=== PATIENT | female | born 1955 | race Caucasian/White ===

== ENCOUNTER 2017-12-10 00:50 | Outpatient (CLI) | payer BC, SELFPAY ==
--- NOTE | 2017-12-10 08:20 | DI.REPORT_ITS ---
SYMPTOMS/DIAGNOSIS: SCREENING, Z12.31 MAMMOGRAMS: Mammograms were interpreted according to the usual protocol including computer analysis with CAD system, tomosynthesis and C view imaging. The breast tissue is of moderate radiodensity. There is no dominant mass. There are no suspicious calcifications and there has been no significant interval change when compared with prior images. SUMMARY: No evidence of malignancy, category 1. Yearly screening mammography is recommended. Breast density category B. [facility] ASSESSMENT OF FINDINGS: Negative. Category 1. Patient will receive a letter notifying them of these results. BI-RADS category B. There are scattered areas of fibroglandular density.
== END 2017-12-10 00:51 ==
PROVIDERS: PCP Nurse Practitioner Family; Visit Provider Obstetrics & Gynecology
DX: Z12.31 Encounter for screening mammogram for malignant neoplasm of breast (principal)
CPT/HCPCS: 77063; 77067

== ENCOUNTER 2018-11-15 08:50 | Outpatient (REF) | payer BC, SELFPAY ==
[2018-11-15 18:58] LABS: HCT 42.2 % (36.0-46.0); HGB 13.7 g/dL (12.0-15.5); Mean Corp. HGB Concentration 32.5 g/dL (32.0-36.0); Mean Corpuscular Hemoglobin 28.2 pg (27.0-33.0); Mean Corpuscular Volume 86.8 fL (80-95); Mean Platelet Volume 9.5 fL (8.0-11.0); Platelet Count 260 x1000/uL (130-400); RBC 4.86 m/cumm (4.00-5.20); RBC Distribution Width 13.8 % (11.7-14.6); White Blood Cell Count 5.45 k/cumm (4.4-10.8)
[2018-11-15 19:13] LABS: ALT 30 U/L (12-78); AST 31 U/L (15-37); Albumin 3.7 g/dL (3.4-5.0); Alkaline Phosphatase 89 U/L (46-116); Anion Gap 10.2 mmol/L (3-11); BUN 13 mg/dL (7-18); Bilirubin, Total 0.3 mg/dL (0.2-1.0); CO2 24.8 mmol/L (21.0-32.0); CREATININE 0.83 mg/dL (0.55-1.02); Calcium 8.6 mg/dL (8.5-10.1); Calculated LDL 122 mg/dL; Chloride 106 mmol/L (98-107); Cholesterol 171 mg/dL (50-200); Glucose 97 mg/dL (70-100); HDL Cholesterol 31 mg/dL (40-60); Potassium 4.3 mmol/L (3.5-5.1); Sodium 141 mmol/L (136-145); TSH (W/Ref FT4) 2.06 uIU/mL (0.36-3.74); Total Protein 7.7 g/dL (6.4-8.2); Triglyceride 94 mg/dL (30-150)
== END 2018-11-15 09:10 ==
LOC: NCHCN 08:50
PROVIDERS: PCP Nurse Practitioner Family; Visit Provider Nurse Practitioner Family
DX: Z00.00 Encounter for general adult medical examination without abnormal findings (principal); D64.9 Anemia, unspecified; E03.9 Hypothyroidism, unspecified; E55.9 Vitamin D deficiency, unspecified
CPT/HCPCS: 80053; 80061; 82306; 83721; 85027; 84443

== ENCOUNTER 2018-12-14 00:24 | Outpatient (CLI) | payer BC, SELFPAY ==
--- NOTE | 2018-12-14 16:05 | DI.MAMMO_ITS ---
SYMPTOMS/DIAGNOSIS: SCREENING, Z12.31, PREVENTATIVE, Z00.00 MAMMOGRAM: Mammograms were interpreted according to the usual protocol including computer analysis with CAD system, tomosynthesis and C view imaging. Comparison is made with exams from 2013 through 2018. The breasts are composed of heterogeneously dense fibroglandular tissue, breast density Category C. No suspicious masses or suspicious microcalcifications are seen. There has been no significant change. IMPRESSION: Category I, negative mammogram. Yearly screening mammography is recommended. [facility] ASSESSMENT OF FINDINGS: Negative. Category 1. Patient will receive a letter notifying them of these results. Bi-RADS category C. The breasts are heterogeneously dense, which may obscure small masses.
== END 2018-12-14 00:44 ==
PROVIDERS: PCP Nurse Practitioner Family; Visit Provider Nurse Practitioner Family
DX: Z00.00 Encounter for general adult medical examination without abnormal findings (principal); Z12.31 Encounter for screening mammogram for malignant neoplasm of breast
CPT/HCPCS: 77063; 77067

== ENCOUNTER 2018-12-17 10:22 | Outpatient (REF) | payer BC, SELFPAY | END 2018-12-17 10:42 | LOC: NCHCN 10:22 | PROVIDERS: PCP Nurse Practitioner Family; Visit Provider Nurse Practitioner Family | DX: L08.9 Local infection of the skin and subcutaneous tissue, unspecified (principal); S81.801A Unspecified open wound, right lower leg, initial encounter | CPT/HCPCS: 87077; 87070; 87205 ==

== ENCOUNTER 2019-01-29 09:58 | Observation (INO) | payer BC, SELFPAY ==
[2019-01-29] VITALS (21 sets, daily range): BP systolic 139–170; BP diastolic 79–114; PULSE 80–111; RESP 14–28; TEMP 36.4–37.2; O2SAT 95–152
--- NOTE | 2019-01-29 09:40 | DI.CT_ITS ---
EXAM: CT BRAIN NECK CTA CLINICAL HISTORY: stroke symptoms TECHNIQUE: Noncontrast cranial CT was performed followed by CT angiography of the neck and head with intravenous infusion of 85 cc's of Omnipaque 350.CT angiography was performed with multi slice acqui sition and multi planar and 3D reconstruction. COMPARISON: ABD PELVIS WITH CONTRAST from 08/07/2017 FINDINGS: Ventricular system is normal in appearance. No evidence of acute intracranial hemorrhage, mass effec t or midline shift. The orbital and temporal bone structures appear intact. Paranasal sinuses and m astoid air cells are well aerated as visualized. Visualized portions of the upper pulmonary lobes are clear. Tracheolaryngeal structures appear intac t. No cervical mass or adenopathy. No aortic arch lesion identified. The common and internal carot id arteries are unremarkable to the level of the cavernous ICAs where there is mild calcified atherom atous plaque bilaterally, no stenosis in excess of 50 percent of the luminal diameter. Vertebral arteries are unremarkable bilaterally as is the basilar artery. No significant stenosis, a neurysm or dissection. Middle cerebral, anterior cerebral and posterior cerebral arteries are unremarkable in appearance jeffrey aterally with no evidence of significant stenosis, aneurysm or dissection. No mass lesion or enhanci ng lesion identified in the brain. Mild atheromatous disease without significant luminal diameter stenosis of the cavernous internal car otid arteries bilaterally. IMPRESSION: No evidence of acute intracranial process. No hemodynamically significant process.
[2019-01-29] MEDS: Omnipaque 350 MG/ML 100 ML BTL IJ (09:52)
--- NOTE | 2019-01-29 10:00 | W.ED.GENAD ---
Discharge Plan Disposition Patient Disposition: [facility] INPATIENT Condition: Stable Discharge Details Chief Complaint: CVA/TIA Clinical Impression: Brain TIA Primary Care Provider: Avi Castillo ED Provider: Gavin Swanson Home Meds and New Rx's Prescriptions: Continued metoprolol tartrate 50 MG tablet 50 mg PO BID RF: 0 Flovent HFA 120 PUFF HFA aerosol inhaler 2 puff Inhalation BID RF: 0 Eliquis 5 MG tablet 5 mg PO BID RF: 0 metoprolol tartrate 50 mg Tablet 50 mg PO BID RF: 0 clindamycin HCl 150 mg Capsule 300 mg PO TID RF: 0 Medical Decision Making 63 yo female with hx of afib on eliquis but hasn't had her dose this AM comes in with EMs after she was having slurred speech and right arm weakness that started an hour or so ago. EMS states finger stick was 99 and en route her symptoms resolved, on arrival she has clear speech, no weakness, no loss of sensation, CN II-XII are intact and has an NIH of 0. Denies any chest pain/pressure, fevers, chills. Suspect TIA, will obtain CT imaging , ecg and lab work and monitor. Given symptoms have resolved not lytic candidate pt remains stable and still has no deficits on exam without complaints. Labs and imaging pending Imaging unremarkable, no significant stenosis of vessels or hemorrhage, lab work still pending labs show no significant abnormality, she remains stable in afib. Given her high abcd2 score will admit, spoke with Dr. del rio who accepts for admission Differential Diagnosis Differential Diagnosis: cva, tia Medical Records Medical records reviewed: Yes I reviewed the patient's medical records. Imaging Data Radiologic Study: Attestation: I personally reviewed and interpreted this imaging study as follows: Imaging: CT Scan Radiologist's impression: no acute findings Radiologic Study #2: Attestation: I personally reviewed and interpreted this imaging study as follows: Imaging: X-Ray Radiologist's impression: no acute findings Lab Data Lab results reviewed: Yes I reviewed the patient's lab results. ECG Data Attestation: I personally reviewed and interpreted this ECG (s) as follows: Prior ECG tracings: not available for review Interpretation: atrial fibrillation, rate of 104, qtc 470 HPI General Mode of arrival: EMS. Date/Time Provider Initiated Documentation: 01/29/19 10:00. Limitations to Documentation: no limitations. Information obtained by: patient and EMS. History of Present Illness 63 year old F presents to the emergency department with the chief complaint of slurred speech, described as moderate, Patient started experiencing this hour(s) (1) and it has been now resolved. No relieving factors improve symptom(s), No exacerbating factors reported . Patient notes other (right arm weakness). Related Data Home Medications Medication Instructions Recorded Confirmed Eliquis 5 mg PO BID 01/29/14 01/29/19 Flovent HFA 2 puff INHALATION BID 01/29/14 01/29/19 metoprolol tartrate 50 mg PO BID 01/29/14 01/29/19 clindamycin HCl 300 mg PO TID 01/29/19 01/29/19 metoprolol tartrate 50 mg PO BID 01/29/19 01/29/19 Allergies Allergy/AdvReac Type Severity Reaction Status Date / Time penicillin V potassium Allergy Intermediate rash Unverified 01/17/19 14:38 [From Ralf Alvarez] albuterol Allergy Mild Unverified 01/29/19 09:52 Review of Systems Review of Systems ROS Unobtainable: All systems reviewed & are unremarkable except as noted in HPI and below Constitutional Constitutional: Denies chills and Denies fever(s) ENT Ears, Nose, Mouth, and Throat: Denies change in voice Cardiovascular Cardiovascular: Denies chest pain and Denies dyspnea Respiratory Respiratory: Denies cough and Denies dyspnea Gastrointestinal Gastrointestinal: Denies abdominal pain, Denies nausea and Denies vomiting Musculoskeletal Musculoskeletal: Denies joint swelling Psychiatric Psychiatric: Denies depression [facility] Medical History (Updated 01/17/19 @ 10:56 by Betsy Jacob) Asthma Atrial fibrillation Diverticulitis 2011 and 2013 Surgical History (Updated 08/24/17 @ 14:03 by Sarina Haas) Colonoscopy - MAC (08/10/17) Family History (Updated 02/03/14 @ 09:19 by Janeth Ramírez MD) Other Diverticulitis Social History Smoking/Tobacco Use Status: Never Drug use: Never Do you feel safe in your relationship?: Yes Exam Const General: no acute distress Orientation: alert HENMT Head: normal to inspection Ears: external ears normal General nose exam: external nose normal Mouth: moist mucous membranes Eyes General: appearance normal, both eyes and all related structures Neck Neck: normal visual inspection Resp Effort & Inspection: normal respiratory effort and able to speak in complete sentences Cardio Rate: regular rate Skin General skin exam: no rashes or lesions noted Neuro General: alert and oriented x3 Extrem General: normal to inspection Psych Mental Status: mental status grossly normal
[2019-01-29 10:22] LABS: ALT 37 U/L (14-59); AST 31 U/L (15-37); Albumin 3.6 g/dL (3.4-5.0); Alkaline Phosphatase 88 U/L (46-116); Anion Gap 11.3 mmol/L (3-11); BUN 13 mg/dL (7-18); Bilirubin, Total 0.6 mg/dL (0.2-1.0); CO2 25.7 mmol/L (21.0-32.0); Calcium 8.5 mg/dL (8.5-10.1); Chloride 104 mmol/L (98-107); Glucose 138 mg/dL (70-100); Potassium 3.3 mmol/L (3.5-5.1); Sodium 141 mmol/L (136-145)
--- NOTE | 2019-01-29 10:22 | DI.RAD_ITS ---
EXAM: XR PORTABLE CHEST AP CLINICAL HISTORY: stroke TECHNIQUE: COMPARISON: No exams were available for comparison FINDINGS: The heart may be mildly enlarged. The lungs are clear and well expanded. IMPRESSION: No evidence of acute process.
[2019-01-29 10:28] LABS: PTT Activated 24.2 sec (21.0-31.4); Prothrombin Time 10.5 sec (9.3-11.0)
[2019-01-29 10:32] LABS: Abs Immature Grans 0.02 k/cumm (0.0-0.09); Absolute Basophil Count 0.04 k/cumm (0.0-0.2); Absolute Eosinophil Count 0.26 k/cumm (0.0-0.7); Absolute Lymphocyte Count 2.17 k/cumm (1.2-3.4); Absolute Monocyte Count 0.63 k/cumm (0.11-0.7); Absolute Neutrophil Count 3.95 k/cumm (1.2-6.7); Basophils % 0.6; Eosinophils % 3.7; HCT 41.6 % (36.0-46.0); HGB 13.6 g/dL (12.0-15.5); Immature Grans % 0.3; Lymphocytes % 30.7; Mean Corp. HGB Concentration 32.7 g/dL (32.0-36.0); Mean Corpuscular Hemoglobin 28.5 pg (27.0-33.0); Mean Platelet Volume 8.4 fL (8.0-11.0); Monocytes % 8.9; Neutrophils % 55.8; Platelet Count 344 x1000/uL (130-400); RBC 4.78 m/cumm (4.00-5.20); RBC Distribution Width 13.4 % (11.7-14.6); White Blood Cell Count 7.07 k/cumm (4.4-10.8)
[2019-01-29] MEDS: Apixaban 5 MG TAB PO ×2 (10:38→20:22)
[2019-01-29] MEDS: Metoprolol 50 MG TAB PO (10:38)
[2019-01-29] MEDS: Normal Saline Flush 10 ML SYR IVP (10:41)
--- NOTE | 2019-01-29 10:53 | DI.VRAD_ITS ---
Critical results: THIS REPORT CONTAINS FINDINGS THAT MAY BE CRITICAL / URGENT (stroke protocol) TO PATIENT CARE. The findings were verbally communicated via telephone conference with Gavin Swanson at 10:52 AM EDT on 01/29/2019. The findings were acknowledged and understood. PROCEDURE INFORMATION: Exam: CT Angiography Head Without And With Contrast Exam date and time: 01/29/2019 9:42 AM Clinical history: 63 years old, female; Other: Stroke symptoms TECHNIQUE: Imaging protocol: Computed tomographic angiography of the head without and with intravenous contrast. 3D rendering: MIP reconstructed images were created and reviewed. Radiation optimization: All CT scans at this facility use at least one of these dose optimization techniques: automated exposure control; mA and/or kV adjustment per patient size (includes targeted exams where dose is matched to clinical indication); or iterative reconstruction. Contrast material: OMNIPAQUE 350; Contrast volume: 85 ml; Contrast route: IV; Other technique: STROKE PROTOCOL was implemented. COMPARISON: No relevant prior studies available. FINDINGS: Right internal carotid artery: There is mild calcification of the intracranial right internal carotid artery. No significant stenosis, thrombosis, or occlusion. No evidence of aneurysm. Right anterior cerebral artery: Unremarkable. No occlusion or significant stenosis. No aneurysm. Right middle cerebral artery: Unremarkable. No occlusion or significant stenosis. No aneurysm. Right posterior cerebral artery: Unremarkable. No occlusion or significant stenosis. No aneurysm. Right vertebral artery: Unremarkable. No occlusion or significant stenosis. No aneurysm. Left internal carotid artery: There is mild calcification of the intracranial left internal carotid artery. No significant stenosis, thrombosis, or occlusion. No evidence of aneurysm. Left anterior cerebral artery: Unremarkable. No occlusion or significant stenosis. No aneurysm. Left middle cerebral artery: Unremarkable. No occlusion or significant stenosis. No aneurysm. Left posterior cerebral artery: Unremarkable. No occlusion or significant stenosis. No aneurysm. Left vertebral artery: Unremarkable. No occlusion or significant stenosis. No aneurysm. Basilar artery: Unremarkable. No occlusion or significant stenosis. No aneurysm. HEAD: Brain: Unremarkable. No hemorrhage. No significant white matter disease. No loss of patel-white differentiation. No edema. Ventricles: Normal. No ventriculomegaly. Bones/joints: Unremarkable. No acute fracture. IMPRESSION: No intracranial vascular stenosis or occlusion. ASSESSMENT: ASPECTS ([place] Stroke Program Early CT Score) is 10. PROCEDURE INFORMATION: Exam: CT Angiography Neck Without And With Contrast Exam date and time: 01/29/2019 9:42 AM Clinical history: 63 years old, female; Other: Stroke symptoms TECHNIQUE: Imaging protocol: Computed tomographic angiography of the neck without and with intravenous contrast. 3D rendering: MIP reconstructed images were created and reviewed. Radiation optimization: All CT scans at this facility use at least one of these dose optimization techniques: automated exposure control; mA and/or kV adjustment per patient size (includes targeted exams where dose is matched to clinical indication); or iterative reconstruction. COMPARISON: No relevant prior studies available. FINDINGS: VASCULATURE: Right common carotid artery: Unremarkable. No stenosis. No dissection or occlusion. Right internal carotid artery: Unremarkable extracranial segment. No stenosis. No dissection or occlusion. Right external carotid artery: Unremarkable. No occlusion or stenosis of the origin. Right vertebral artery: Unremarkable. No stenosis. No dissection or occlusion. Left common carotid artery: Unremarkable. No stenosis. No dissection or occlusion. Left internal carotid artery: Unremarkable extracranial segment. No stenosis. No dissection or occlusion. Left external carotid artery: Unremarkable. No occlusion or stenosis of the origin. Left vertebral artery: Unremarkable. No stenosis. No dissection or occlusion. NECK: Bones/joints: There are degenerative changes greatest at C5-C6 and C6-C7 where there is [id number] neural foraminal narrowing. There is likely at least mild spinal stenosis at C5-C6. Soft tissues: Normal. No significant soft tissue swelling. IMPRESSION: No cervical vascular stenosis or occlusion. COMMENT: Reference per NASCET criteria for degree of stenosis: Mild: less than 50% stenosis. Moderate: 50-69% stenosis. Severe: 70-94% stenosis. Near occlusion: 95-99% stenosis. Dictated and Authenticated by: Summer Glass MD. Ordering:RENATA Alonso MD
--- NOTE | 2019-01-29 10:54 | DI.VRAD_ITS ---
PROCEDURE INFORMATION: Exam: XR Chest, 1 View Exam date and time: 01/29/2019 10:21 AM Clinical history: 63 years old, female; Other: Stroke TECHNIQUE: Imaging protocol: XR of the chest Views: 1 view. COMPARISON: No relevant prior studies available. FINDINGS: Lungs: No consolidation. Pleural space: No significant visible pleural effusion. No pneumothorax. Heart/Mediastinum: No significant cardiomegaly. Vasculature: The aorta is calcified and unfolded. Bones/joints: Degenerative changes are present in the spine. IMPRESSION: No acute cardiopulmonary finding. Dictated and Authenticated by: Summer Glass MD. Ordering:RENATA Alonso MD
[2019-01-29] MEDS: Normal Saline 1,000 ML 150 ML IV ×2 (12:48→20:27)
[2019-01-29] MEDS: Aspirin E.C. 325 MG TABEC PO (12:48)
[2019-01-29 13:11] LABS: Bilirubin Negative (Negative); Blood Negative (Negative); Clarity Clear (Clear); Glucose Negative (Negative); Ketones Negative (Negative); Leukocyte Esterase Negative (Negative); Nitrite Negative (Negative); Urobilinogen 0.2 EU/dL (Up TO 0.2); pH 7.5 (5-8)
--- NOTE | 2019-01-29 15:34 | HPE_ITS ---
Date of service: 01/29/19 Time of Service: 15:34 Assessment and Plan Assessment and plan (1) TIA (transient ischemic attack): Status: Acute Assessment and plan: Symptoms already resolved. I added aspirin to her eliquis. The patient will be monitored on tele with neurochecks. Permissive hypertension over the next 24 hours. Start statin, check fasting lipid panel, TSH, A1C. Plan for MRI brain, echo, neurology consult on Thursday. (2) Abscessed tooth: Status: Acute Assessment and plan: Continue clindamycin. (3) Hypothyroidism: Status: Chronic Assessment and plan: Not on therapy as outpatient. Check TSH and free T4 (4) Atrial fibrillation: Status: Chronic Assessment and plan: On eliquis. Rate is slightly rapid. Monitor on tele. Will not prescribe any more metoprolol for tonight due to permissive hypertension - however, if HR becomes elevated, digoxin might have to be considered. Obtaining echo. Given reports of exertional dyspnea, the patient would eventually benefit from an outpatient stress test and likely 30 day event monitor vs a zio patch. (5) Hypertension, essential, benign: Status: Chronic Assessment and plan: As above - permissive hypertension (6) Sleep apnea: Status: Chronic Assessment and plan: Continue home CPAP (7) DVT prophylaxis: Status: Acute Assessment and plan: On therapeutic eliquis (8) Discharge planning issues: Status: Acute Assessment and plan: Full code History of Present Illness History of Present Illness Chief Complaint: My right side had no strength Narrative: Ms Vinson is a 63 year old female with PMHx of Atrial fibrillation, on eliquis, as well as hypertension, hypothyroidism, VALERIE on CPAP, and obesity with BMI of 34, who was washing up this morning when she noticed a sudden weakness in her right arm and leg. She felt like her leg was not doing what she was telling it to. She could not walk. She called her on the phone to tell him that he needs to come in to the house. She noticed then that she was slurring her words, but she states that the right words were coming out. She denied any sensation of facial weakness, numbness, or tingling. She did not look at herself in the mirror so she is not sure if she had a facial droop. She denied any difficulty swallowing. When her offered to take her to the hospital in his car, she was unable to walk, so EMS was called. When they arrived, the patient was still having right-sided weakness and slurred speech. The patient felt much better in the ambulance and, by the time she arrived to the ED, she was symptom free. Her NIH stroke scale score was zero. Her CT and CTA of the head/neck were negative. We were asked to take over further evaluation and treatment of the patient. Of note, she is currently on day 3 of clindamycin for a tooth infection. Review of Systems Review of Systems Narrative: 12 systems reviewed. In addition to symptoms listed in HPI, the patient endorses unintentional weight gain over the last year (unsure of exactly how much), low energy, occasional dyspnea on exertion, ankle swelling. She states she has never had a stress test, and that her last echo was at least 6 - 8 years ago. She states she felt today, when she had the symptoms, like she was having an o ut of body experience. Denies dizziness/lightheadedness/headache. Denies chest pain. [facility] Medical History (Updated 01/29/19 @ 16:02 by Ivana Bai MD) Allergic rhinitis (Chronic) Anemia (Chronic) Asthma (Chronic) Atrial fibrillation (Chronic) Diverticulitis 2011 and 2013 Hypertension, essential, benign (Chronic) Hypothyroidism (Chronic) Nonhealing skin ulcer (Chronic) RLE Obesity (BMI 30.0-34.9) (Acute) Sleep apnea (Chronic) Uses CPAP Vitamin D deficiency (Chronic) Surgical History (Updated 01/29/19 @ 15:47 by Ivana Bai MD) Colonoscopy - MAC (08/10/17) History of esophagogastroduodenoscopy (EGD) (Chronic) Family History (Updated 01/29/19 @ 15:48 by Ivana Bai MD) Maternal Grandfather Heart disease Mother Diabetes Hypertension Pancreatic cancer Maternal Grandmother Diabetes Father Head and neck cancer Brain cancer Other Diverticulitis Social History (Updated 01/29/19 @ 15:49 by Ivana Bai MD) Smoking/Tobacco Use Status: Never Alcohol Intake: never Drug use: Never Do you feel safe in your relationship?: Yes Meds Home Medications and Allergies Home Medications Medication Instructions Recorded Confirmed Type Eliquis 5 mg PO BID 01/29/14 01/29/19 History Flovent HFA 2 puff INHALATION BID 01/29/14 01/29/19 History metoprolol tartrate 50 mg PO BID 01/29/14 01/29/19 History clindamycin HCl 300 mg PO TID 01/29/19 01/29/19 History Allergies Allergy/AdvReac Type Severity Reaction Status Date / Time penicillin V potassium Allergy Intermediate rash Unverified 01/17/19 14:38 [From Smith-Chrystal K] albuterol Allergy Mild Unverified 01/29/19 09:52 Exam Narrative Exam Narrative: General: Very pleasant middle-aged female, sitting up in bed comfortably Neurological: A&Ox3, CN II - XII intact/EOMI, PERRL, tongue midline, no pronator drift noted, [id number] intact B, speech intact, sensory intact B, 5/5 strength throughout, 2+ patellar reflexes B, equal, plantar response flexion (subtle), no clonus Psychiatric: appropriate speech pattern/content Skin: visible skin intact HEENT: Atraumatic, normocephalic, EOMI, MMM, clear oropharynx, no submandibular or cervical lypmhadenopathy, + goiter, no JVD Cardiovascular: Seemingly regularly regular rhythm when I auscultate, no m/r/g Lungs: CTAB Gastrointestinal: soft, nontender, nondistended Genitourinary: deferred Extremities: wearing TEDs, which makes the exam of the RLE wound difficult, but I can make out that it is tiny and scabbed over, 1+ pedal pulses B, felt better on RLE than on left. Trace edema BLE's, no c/c. Results Imaging Additional studies: CT/CTA head: No acute findings. No intracranial vascular stenosis or occlusion. CTA neck: No cervical vascular stenosis or occlusion. CXR: No acute cardiopulmonary finding. EKG: Afib, HR 106, non-specific ST-T changes diffusely; no acute ischemia. Labs Result diagrams: 01/29/19 09:55 01/29/19 09:55 Labs: Laboratory Results - last 24 hr 01/29/19 01/29/19 01/29/19 09:55 09:55 09:55 WBC 7.07 RBC 4.78 Hgb 13.6 Hct 41.6 MCV 87.0 MCH 28.5 MCHC 32.7 RDW 13.4 Plt Count 344 MPV 8.4 Immature Gran % 0.3 Neutrophils % 55.8 Lymphocytes % 30.7 Monocytes % 8.9 Eosinophils % 3.7 Basophils % 0.6 Absolute Neutrophils 3.95 Absolute Lymphocytes 2.17 Absolute Monocytes 0.63 Absolute Eosinophils 0.26 Absolute Basophils 0.04 PT 10.5 INR 1.0 APTT 24.2 Sodium 141 Potassium 3.3 L Chloride 104 Carbon Dioxide 25.7 Anion Gap 11.3 H BUN 13 Creatinine 0.90 Estimated GFR/1.73 m2 >= 60.00 Glucose 138 H Calcium 8.5 Magnesium 2.0 Total Bilirubin 0.6 AST 31 ALT 37 Alkaline Phosphatase 88 Total Protein 8.0 Albumin 3.6 Urine Color Urine Clarity Urine pH Ur Specific [place] Urine Protein Urine Ketones Urine Blood Urine Nitrite Urine Bilirubin Urine Urobilinogen Ur Leukocyte Esterase Urine Glucose 01/29/19 12:54 WBC RBC Hgb Hct MCV MCH MCHC RDW Plt Count MPV Immature Gran % Neutrophils % Lymphocytes % Monocytes % Eosinophils % Basophils % Absolute Neutrophils Absolute Lymphocytes Absolute Monocytes Absolute Eosinophils Absolute Basophils PT INR APTT Sodium Potassium Chloride Carbon Dioxide Anion Gap BUN Creatinine Estimated GFR/1.73 m2 Glucose Calcium Magnesium Total Bilirubin AST ALT Alkaline Phosphatase Total Protein Albumin Urine Color Yellow Urine Clarity Clear Urine pH 7.5 Ur Specific [place] 1.010 Urine Protein Negative Urine Ketones Negative Urine Blood Negative Urine Nitrite Negative Urine Bilirubin Negative Urine Urobilinogen 0.2 Ur Leukocyte Esterase Negative Urine Glucose Negative Last Vital Signs Temp 37.0 C 01/29/19 12:37 Pulse 93 H 01/29/19 13:50 Resp 16 01/29/19 12:37 BP 148/84 H 01/29/19 13:50 Pulse Ox 98 01/29/19 12:37
[2019-01-29 16:59] LABS: Troponin I < 0.05 ng/mL (0.00-0.06)
[2019-01-29 17:36] LABS: TSH 4.35 uIU/mL (0.36-3.74); Troponin I < 0.05 ng/mL (0.00-0.06)
[2019-01-29] MEDS: Potassium Chloride 20 MEQ TABCR 40 MEQ PO (17:44)
[2019-01-29 17:45] LABS: T4 10.2 ug/dL (4.5-12.5)
--- NOTE | 2019-01-29 17:57 | HOME_ITS ---
Home Ventilator Equipment Home care company [employer] Reason: Obstructive Sleep Apnea Make: Respironics Model: Dreamstation Mask type: Face mask Mask size: Medium Mode: CPAP Settings: 24/02 Oxygen bleed in (lpm): 0 Condition: Good Date last checked: 01/29/19 Year of last sleep study: Compliance Daily Comments:
[2019-01-29] MEDS: Atorvastatin 20 MG TAB PO (20:22)
[2019-01-29] MEDS: Clindamycin 150 MG CAP 300 MG PO (20:22)
[2019-01-29] MEDS: Fluticasone NASAL SPRAY 16 GM BTL NS (20:23)
[2019-01-30] VITALS (10 sets, daily range): BP systolic 151–170; BP diastolic 87–118; PULSE 82–112; RESP 16–18; TEMP 36.2–37.1; O2SAT 96–99
[2019-01-30] MEDS: Normal Saline 1,000 ML 150 ML IV ×2 (02:42→09:05)
[2019-01-30 07:28] LABS: Abs Immature Grans 0.01 k/cumm (0.0-0.09); Absolute Basophil Count 0.02 k/cumm (0.0-0.2); Absolute Eosinophil Count 0.18 k/cumm (0.0-0.7); Absolute Lymphocyte Count 1.65 k/cumm (1.2-3.4); Absolute Monocyte Count 0.62 k/cumm (0.11-0.7); Absolute Neutrophil Count 4.67 k/cumm (1.2-6.7); Basophils % 0.3; Eosinophils % 2.5; HCT 39.8 % (36.0-46.0); HGB 12.9 g/dL (12.0-15.5); Immature Grans % 0.1; Lymphocytes % 23.1; Mean Corp. HGB Concentration 32.4 g/dL (32.0-36.0); Mean Corpuscular Hemoglobin 28.7 pg (27.0-33.0); Mean Corpuscular Volume 88.4 fL (80-95); Mean Platelet Volume 8.4 fL (8.0-11.0); Monocytes % 8.7; Neutrophils % 65.3; Platelet Count 289 x1000/uL (130-400); RBC Distribution Width 13.5 % (11.7-14.6); White Blood Cell Count 7.15 k/cumm (4.4-10.8)
[2019-01-30 07:38] LABS: BUN 11 mg/dL (7-18); CREATININE 0.76 mg/dL (0.55-1.02); Calcium 8.4 mg/dL (8.5-10.1); Calculated LDL 125 mg/dL; Chloride 107 mmol/L (98-107); Cholesterol 180 mg/dL (50-200); Glucose 104 mg/dL (70-100); HDL Cholesterol 31 mg/dL (40-60); Magnesium 1.9 mg/dL (1.8-2.4); Potassium 3.7 mmol/L (3.5-5.1); Sodium 141 mmol/L (136-145); Triglyceride 124 mg/dL (30-150)
[2019-01-30] MEDS: Clindamycin 150 MG CAP 300 MG PO ×3 (08:25→19:55)
[2019-01-30] MEDS: Apixaban 5 MG TAB PO ×2 (08:26→19:55)
[2019-01-30] MEDS: Aspirin 81 MG CHEW PO (08:26)
[2019-01-30 08:47] LABS: FREE T4 1.02 ng/dL (0.76-1.46)
[2019-01-30] MEDS: Fluticasone NASAL SPRAY 16 GM BTL NS ×2 (09:07→19:54)
[2019-01-30 14:45] LABS: Hemoglobin A1C 5.7 % (4.5-6.2)
--- NOTE | 2019-01-30 14:53 | PGE_ITS ---
Date of Service Date of service: 01/30/19 Time of Service: 14:53 Assessment and Plan Assessment and plan (1) TIA (transient ischemic attack): Status: Acute Assessment and plan: No symptoms since yesterday am. Continue eliquis, asa, statin. Ok to resume BB. Continue to monitor on tele, neurochecks. MRI brain, echo, neurology consult tomorrow. (2) Abscessed tooth: Status: Acute Assessment and plan: Continue clindamycin. (3) Hypothyroidism: Status: Chronic Assessment and plan: Actually, she is on therapy - brought in a bottle today. Resume synthroid 50 mcg PO daily. (4) Atrial fibrillation: Status: Chronic Assessment and plan: On eliquis. Rate is slightly rapid. Resume BB and continue to monitor on tele. Obtaining echo. Given reports of exertional dyspnea, the patient would eventually benefit from an outpatient stress test and likely 30 day event monitor vs a zio patch. (5) Hypertension, essential, benign: Status: Chronic Assessment and plan: As above - permissive hypertension (6) Sleep apnea: Status: Chronic Assessment and plan: Continue home CPAP (7) DVT prophylaxis: Status: Acute Assessment and plan: On therapeutic eliquis (8) Discharge planning issues: Status: Acute Assessment and plan: Full code Plan for discharge home tomorrow after neuro consult. Subjective Subjective Interval history since last seen: Ms Vinson states she has not had any recurrence of her symptoms since yesterday am. She complains of palpitations - she thinks it is because she has been without her metoprolol. It does not seem to be bothering her too much. She complains of slight shortness of breath at this time laying flat as well. Denies chest pain, nausea, dizziness, any out of body sensations. Exam Narrative Exam Narrative: General: Very pleasant middle-aged female, A&ox3, laying comfortably flat in bed without tachypnea, no focal neurological deficits. HEENT:EOMI, MMM Cardiovascular: irregularly irregular rhythm, not tachycardic Lungs: very quiet crackles at B bases. Gastrointestinal: soft, nontender, nondistended Extremities: wearing TEDs, no e/c/c BLE's Objective Objective Clinical Data: Abnormal lab results 01/29/19 01/30/19 Range/Units 09:55 07:02 Glucose 104 H (70-100) mg/dL Calcium 8.4 L (8.5-10.1) mg/dL HDL Cholesterol 31 L (40-60) mg/dL TSH 4.35 H (0.36-3.74) uIU/mL Vital Signs Temperature 36.7 C 01/30/19 11:23 Temperature Source Tympanic 01/30/19 11:23 Pulse 95 H 01/30/19 11:23 Pulse Rhythm Irregular 01/30/19 08:20 Pulse 107 H 01/29/19 11:05 Respiratory Rate 17 01/30/19 11:23 Respiratory Effort Non-Labored 01/30/19 08:20 Respiratory Depth Normal 01/30/19 08:20 Respiratory Pattern Normal 01/30/19 08:20 Blood Pressure 170/103 H 01/30/19 11:23 Blood Pressure Mean 105 01/29/19 11:00 Blood Pressure Position Sitting 01/29/19 10:04 Pulse Oximetry 98 01/30/19 11:23 Oxygen Delivery Method Room Air 01/30/19 11:23 Oxygen Flow Rate 0 01/30/19 11:23 Pain Level 0 01/30/19 11:23 Comment 01/30/19 03:20 Intake & Output 01/29/19 01/30/19 01/30/19 23:59 11:59 23:59 Intake Total 1240 / 1240 2245.0 / 2645.0 400 / 2645.0 Output Total 400 / 400 450 / 1350 900 / 1350 Balance 840 / 840 1795.0 / 1295.0 -500 / 1295.0 Weight 90.3 kg 91.2 kg Intake: IV 1000 / 1000 1895.0 / 1895.0 Oral 240 / 240 350 / 750 400 / 750 Output: Urine 400 / 400 450 / 1350 900 / 1350 Other: Urine Color Pale Yellow Yellow Yellow Urine Appearance Clear Clear Clear Urine Odor Normal Normal Comment missed the hat, only 100 cc in hat Voiding Methods Toilet Toilet Laboratory Results WBC 7.15 k/cumm (4.4-10.8) 01/30/19 07:02 RBC 4.50 m/cumm (4.00-5.20) 01/30/19 07:02 Hgb 12.9 g/dL (12.0-15.5) 01/30/19 07:02 Hct 39.8 % (36.0-46.0) 01/30/19 07:02 MCV 88.4 fL (80-95) 01/30/19 07:02 MCH 28.7 pg (27.0-33.0) 01/30/19 07:02 MCHC 32.4 g/dL (32.0-36.0) 01/30/19 07:02 RDW 13.5 % (11.7-14.6) 01/30/19 07:02 Plt Count 289 x1000/uL (130-400) 01/30/19 07:02 MPV 8.4 fL (8.0-11.0) 01/30/19 07:02 Immature Gran % 0.1 01/30/19 07:02 Neutrophils % 65.3 01/30/19 07:02 Lymphocytes % 23.1 01/30/19 07:02 Monocytes % 8.7 01/30/19 07:02 Eosinophils % 2.5 01/30/19 07:02 Basophils % 0.3 01/30/19 07:02 Absolute Neutrophils 4.67 k/cumm (1.2-6.7) 01/30/19 07:02 Absolute Lymphocytes 1.65 k/cumm (1.2-3.4) 01/30/19 07:02 Absolute Monocytes 0.62 k/cumm (0.11-0.7) 01/30/19 07:02 Absolute Eosinophils 0.18 k/cumm (0.0-0.7) 01/30/19 07:02 Absolute Basophils 0.02 k/cumm (0.0-0.2) 01/30/19 07:02 PT 10.5 sec (9.3-11.0) 01/29/19 09:55 INR 1.0 (0.9-1.1) 01/29/19 09:55 APTT 24.2 sec (21.0-31.4) 01/29/19 09:55 Sodium 141 mmol/L (136-145) 01/30/19 07:02 Potassium 3.7 mmol/L (3.5-5.1) 01/30/19 07:02 Chloride 107 mmol/L (98-107) 01/30/19 07:02 Carbon Dioxide 24.0 mmol/L (21.0-32.0) 01/30/19 07:02 Anion Gap 10.0 mmol/L (3-11) 01/30/19 07:02 BUN 11 mg/dL (7-18) 01/30/19 07:02 Creatinine 0.76 mg/dL (0.55-1.02) 01/30/19 07:02 Estimated GFR/1.73 m2 >= 60.00 (mL/min/1.73m2) 01/30/19 07:02 Glucose 104 mg/dL (70-100) H 01/30/19 07:02 Calcium 8.4 mg/dL (8.5-10.1) L 01/30/19 07:02 Magnesium 1.9 mg/dL (1.8-2.4) 01/30/19 07:02 Total Bilirubin 0.6 mg/dL (0.2-1.0) 01/29/19 09:55 AST 31 U/L (15-37) 01/29/19 09:55 ALT 37 U/L (14-59) 01/29/19 09:55 Alkaline Phosphatase 88 U/L (46-116) 01/29/19 09:55 Troponin I < 0.05 ng/mL (0.00-0.06) 01/29/19 15:50 Total Protein 8.0 g/dL (6.4-8.2) 01/29/19 09:55 Albumin 3.6 g/dL (3.4-5.0) 01/29/19 09:55 Triglycerides 124 mg/dL (30-150) 01/30/19 07:02 Total Cholesterol 180 mg/dL (50-200) 01/30/19 07:02 LDL Cholesterol, Calc 125 mg/dL 01/30/19 07:02 HDL Cholesterol 31 mg/dL (40-60) L 01/30/19 07:02 TSH 4.35 uIU/mL (0.36-3.74) H 01/29/19 09:55 Free T4 1.02 ng/dL (0.76-1.46) 01/30/19 07:02 Thyroxine (T4) 10.2 ug/dL (4.5-12.5) 01/29/19 09:55 Urine Color Yellow (Yellow) 01/29/19 12:54 Urine Clarity Clear (Clear) 01/29/19 12:54 Urine pH 7.5 (5-8) 01/29/19 12:54 Ur Specific [place] 1.010 (1.005-1.025) 01/29/19 12:54 Urine Protein Negative mg/dL (Negative) 01/29/19 12:54 Urine Ketones Negative mg/dL (Negative) 01/29/19 12:54 Urine Blood Negative (Negative) 01/29/19 12:54 Urine Nitrite Negative (Negative) 01/29/19 12:54 Urine Bilirubin Negative (Negative) 01/29/19 12:54 Urine Urobilinogen 0.2 EU/dL (Up TO 0.2) 01/29/19 12:54 Ur Leukocyte Esterase Negative (Negative) 01/29/19 12:54 Urine Glucose Negative mg/dL (Negative) 01/29/19 12:54
--- NOTE | 2019-01-30 17:13 | PDOC.CMIN ---
Care Management Initial Assess REASON FOR HOSPITALIZATION:: TIA PAST MEDICAL HISTORY/PAST SURGICAL HISTORY:: Medical: Allergic rhinitis (Chronic), Anemia (Chronic), Asthma (Chronic). Atrial fibrillation (Chronic), Diverticulitis 2011 and 2013, Hypertension, essential, benign (Chronic), Hypothyroidism (Chronic), Nonhealing skin ulcer (Chronic) RLE, Obesity (BMI 30.0-34.9) (Acute), Sleep apnea (Chronic), Uses CPAP, Vitamin D deficiency (Chronic). Sirgical: Colonoscopy - MAC (08/10/17), History of esophagogastroduodenoscopy (EGD) (Chronic) PREVIOUS FUNCTIONAL STATUS/SOCIAL/FAMILY SUPPORTS:: Independent at baseline. Lives with , Jose, at their home on [address] in [place]. Two adult daughters leve nearby and are supportive. CURRENT FUNCTIONAL STATUS:: Alert, oriented. States she has recovered and feels normal but the experience was very frightening. ADVANCE DIRECTIVES:: None on file. Has patient been provided with information about the portal?: No Did the patient sign up for the portal?: No CODE STATUS:: Full Code INSURANCE COVERAGE / FINANCIAL ISSUES:: BC/BS CURRENT HOME/COMMUNITY SERVICES/EQUIPMENT:: None at this time PRIMARY CARE PHYSICIAN:: [facility]: Avi Castillo NP POTENTIAL DISCHARGE NEEDS:: Follow up appointments PATIENT/FAMILY EDUCATION NEEDS:: Discharge instructions ANTICIPATED BARRIERS TO DISCHARGE:: None identified TRANSPORTATION:: will transport PLAN:: Adali will return home when medically cleared for discharge. No swevices needed. , Jose, will transport by car.
[2019-01-30] MEDS: Atorvastatin 20 MG TAB PO (19:55)
[2019-01-30] MEDS: Metoprolol 50 MG TAB PO (19:55)
[2019-01-31] VITALS (7 sets, daily range): BP systolic 144–166; BP diastolic 88–112; PULSE 79–97; RESP 16–18; TEMP 36.3–36.9; O2SAT 95–98
[2019-01-31] MEDS: Levothyroxine 50 MCG TAB PO (05:58)
[2019-01-31 07:22] LABS: Anion Gap 11.2 mmol/L (3-11); BUN 15 mg/dL (7-18); CO2 23.8 mmol/L (21.0-32.0); CREATININE 0.87 mg/dL (0.55-1.02); Calcium 8.9 mg/dL (8.5-10.1); Chloride 105 mmol/L (98-107); Glucose 103 mg/dL (70-100); Magnesium 2.1 mg/dL (1.8-2.4); Potassium 3.8 mmol/L (3.5-5.1); Sodium 140 mmol/L (136-145)
--- NOTE | 2019-01-31 07:30 | DI.US_ITS ---
APPROVED REPORT Conclusion Left Ventricle : The left ventricle is normal size. There is normal left ventricular wall thickness. Diastolic function cannot be fully analyzed given atrial fibrillation. There is normal tissue Dopple r velocity Regional wall motion is grossly normal. LVEF is 55-60%. Right Ventricle : Right ventricle is dilated. Right ventricle is low normal in function. Atria : Left atrium is mildly dilated. Right atrium is moderately dilated. Aortic Valve : Aortic valve is trileaflet. Aortic valve leaflets are mildly thickened. Mild aortic st enosis. Mild aortic regurgitation. Mitral Valve : The mitral valve is normal in structure. Mild mitral regurgitation. No evidence of declan ral valve stenosis. Tricuspid Valve : The tricuspid valve is normal in structure. Moderate tricuspid regurgitation. Great Vessels : The aortic root is normal in size. The ascending aorta is mildly dilated (3.3 cm) IVC is top normal in size and collapses >50% with inspiration. RVSP approximately 32 mmHg. There is no cardiac source of emboli detected. There is no prior echo available for comparison EXAM: Comprehensive 2D, Doppler, and color-flow Echocardiogram Patient Location: In-Patient Side Stitcher: LESLIE Barnett (AE) Rhythm: Atrial Fibrillation Indications: TIA Left Ventricle The left ventricle is normal size. The left ventricular systolic function is normal. The left ventric ular ejection fraction is within the normal range. There is normal left ventricular wall thickness. R egional wall motion is grossly normal. Diastolic function cannot be fully analyzed given atrial fibri llation. There is normal tissue Doppler velocity LVEF is 55-60%. Right Ventricle Right ventricle is dilated. Right ventricle is low normal in function. Atria Left atrium is mildly dilated. Right atrium is moderately dilated. Aortic Valve Aortic valve is trileaflet. Aortic valve leaflets are mildly thickened. Mild aortic stenosis. Mild ao rtic regurgitation. Mitral Valve The mitral valve is normal in structure. No evidence of mitral valve stenosis. Mild mitral regurgitat ion. Tricuspid Valve The tricuspid valve is normal in structure. Moderate tricuspid regurgitation. Pulmonic Valve Pulmonic valve is not well visualized. Great Vessels The aortic root is normal in size. The ascending aorta is mildly dilated (3.3 cm) IVC is top normal i n size and collapses >50% with inspiration. RVSP approximately 32 mmHg Pericardium Prominent anterior epicardial fat pad is present. 2D Dimensions IVSd 0.77 cm F: 0.6-1.0 LV EDV A2C 94.10 mL PWd 0.79 cm F: 0.6 - 1.0 LV EDV A4C 71.70 mL LVDd 4.66 cm F: 3.9 - 5.3 LA Volume Index A2C 49.82 mL/m2 LVDs 3.10 cm F: 2.2 - 3.5 LA Volume Index A4C 46.02 mL/m2 Aortic Root 2.74 cm F: 2.7 - 3.3 LA Volume Index Biplane 51.41 mL/m2 RA Area A4C 27.01 cm2 LA Area A4C 25.24 cm2 LVOT 1.85 cm (M/F) 1.5-2.5 LA Area A2C 28.20 cm2 Ascending Aorta 3.34 cm F: 2.3 - 3.1 EF AP4 61.37 % LVEF (Teich) 62.10 % EF AP2 49.42 % LVEF (Jean Baptiste's) 55.73 % F: 54 - 74 EF BP 55.73 % LV Volume 63.45 mL F: 46 - 106 LV Volume Index 32.37 mL/m2 F: 29 - 61 FS 33.39 % LV Diastology E Decel Time 148.00 (160-240 msec) MED E' 0.08 (>0.07 m/s) LV E/e MED 13.70 (<14) LAT E' 0.11 (>0.1 m/s) LV E/e LAT 9.24 (<14) Aortic Valve LVOT Area 2.69 cm2 LVOT Peak Juan. 0.89 m/s LVOT Mean Juan. 0.71 m/s WILLIAM Vmax 0.00 m/s LVOT Peak Gr. 3.20 mmHg WILLIAM Vmax Index 0.88 cm2/m2 LVOT Mean Gr. 2.16 mmHg WILLIAM Mean Juan. 0.00 m/s LVOT VTI 0.19 m WILLIAM Mean Juan. Index 0.91 cm2/m2 AoV Peak Juan. 1.39 (0.5-1.3 m/s) AoV Mean Juan. 1.07 m/s AO Peak GR. 7.71 mmHg AO Mean GR. 4.90 (<5 mmHg) AO VTI 0.29 (0.18-0.25 m) WILLIAM (VTI) 1.75 (2.5-4.5 cm2) WILLIAM (VTI) Index 0.89 cm/m2 Mitral Valve MV E Max Juan. 1.05 (0.4-1.3 m/s) MV Decel. Time 148.00 (160-240 msec) MV PHT 42.90 msec MVA PHT 5.13 cm2 Tricuspid Valve TR P. Velocity 2.58 m/s TV Regurg Vmax 2.58 m/s TR P. Gradient 26.65 mmHg
--- NOTE | 2019-01-31 08:00 | DI.MRI_ITS ---
EXAM: MR BRAIN WO CLINICAL HISTORY: TIA, SLURRED SPEECH, RT ARM NUMBNESS. TECHNIQUE: Multiplanar multisequence MRI was performed. COMPARISON: CT BRAIN NECK CTA from 01/29/2019 FINDINGS: There is a tiny focus of restricted diffusion in the left side of the loco slightly to the left of mi dline. Findings are consistent with an acute pontine lacunar infarct. No other areas of restricted diffusion are seen. A few scattered high signal lesions in the white matter consistent with sequela o f microvascular disease. There is no significant atrophy or ventricular dilatation. The vascular fl ow voids appear intact. The sinuses, orbits and mastoid air cells are unremarkable. IMPRESSION: Tiny acute infarct in the loco.
[2019-01-31] MEDS: Fluticasone NASAL SPRAY 16 GM BTL NS (08:33)
[2019-01-31] MEDS: Normal Saline Flush 10 ML SYR IVP (08:33)
[2019-01-31] MEDS: Clindamycin 150 MG CAP 300 MG PO ×2 (08:34→13:15)
[2019-01-31] MEDS: Aspirin 81 MG CHEW PO (08:34)
[2019-01-31] MEDS: Apixaban 5 MG TAB PO (08:35)
[2019-01-31] MEDS: Metoprolol 50 MG TAB PO (08:35)
--- NOTE | 2019-01-31 15:41 | DI.VRAD_ITS ---
Addendum created by Daniel Montalvo MD on 01/31/2019 3:49:03 PM EDT Addendum: Acute pontine lacunar infarction located just to the left of midline. THIS REPORT CONTAINS FINDINGS THAT MAY BE CRITICAL TO PATIENT CARE. The findings were verbally communicated via telephone conference with JESSICA DUKE at 3:48 PM EDT on 01/31/2019. The findings were acknowledged and understood. Initial report created on 01/31/2019 3:41:37 PM EDT PROCEDURE INFORMATION: Exam: MR Head Without Contrast Exam date and time: 01/31/2019 11:59 AM Clinical history: 63 years old, unknown; Numbness / parasthesia; Right; Patient HX: TIA TECHNIQUE: Imaging protocol: MR of the head without contrast. COMPARISON: No relevant prior studies available. FINDINGS: Brain: Small acute pontine infarct. No edema or mass effect. No hemorrhage. Ventricles: Normal. No ventriculomegaly. Bones/joints: Unremarkable. Soft tissues: Unremarkable. Sinuses: No acute sinusitis. Mastoid air cells: Normal as visualized. No mastoid effusion. Orbits: Unremarkable. IMPRESSION: Small acute pontine lacunar infarct. Dictated and Authenticated by: Daniel Montalvo MD. Ordering:MATT Heath MD
--- NOTE | 2019-01-31 16:15 | NCONE_ITS ---
Date of service: 01/31/19 Time of Service: 16:15 Assessment and Plan Assessment and plan (1) Thrombotic stroke involving cerebral artery: Status: Acute Assessment and plan: Ms. Vinson is a 63 year-old, right-handed woman with a PMH of atrial fibrillation on Eliquis 5mg BID, VALERIE on CPAP, and a history of elevated blood pressures who was admitted for transient right hemiparesis and dysarthria secondary to a punctate area of acute ischemic stroke in the left central upper medulla/lower loco secondary to small vessel disease in the setting of recent inflammation (cellulitis, tooth abscess). I do not think her stroke was due to atrial fibrillation and I do not think that she has failed Eliquis. I agree with the addition of aspirin 81mg daily in addition to Eliquis for secondary stroke prevention. ADRs were discussed. I agree with initiation of atorvastatin 20mg also for secondary stroke prevention with eventual LDL goal of <70. Her goal long-term BP is 120-140 systolic for stroke prevention. All of this was discussed with her. Her symptoms have resolved. She does not need PT, OT, ST at this time. She should follow-up in the neurology clinic in 4-6 weeks. History of Present Illness History of Present Illness Chief Complaint: TIA/stroke Narrative: Handedness: right. HPI: Ms. Vinson is a 63 year-old woman with PMH of atrial fibrillation on Eliquis 5mg BID for the last 5 years, obstructive sleep apnea compliant with CPAP, elevated blood pressures in the past without a diagnosis of hypertension, asthma, and hypothyroidism. On 01/29/19, she awoke in her normal state just before 8am. Approximately 1 hour later, she suddenly developed right face, arm, and leg weakness with slurred speech. She called her home (he was running errands). She was unable to ambulate so they called 911. By they time she left the house in the ambulance, her symptoms have resolved within 30minutes of onset. She was brought to the [facility] ER. Her BP was 150-160s systolic which is higher than her usual BPs. Her EKG showed she was in atrial fibrillation. Her FSBS was 99. She was started on aspirin 81mg daily along with atorvastatin 20mg daily and admitted for further work-up. Eliquis was resumed on day 2. Her metoprolol was also held initially but re-started due to palpitations which have since resolved. She has had no recurrent symptoms. She has undergone the work- up as below. She has no history of TIA/stroke, nor any FHx of TIA/stroke. On the day of the event, she had not taken her am Eliquis, however, this is not unusual as she generally takes it between in 9-10am as his her habit. Of interest, she is currently on antibiotics for a tooth abscess started on 01/27/19. In the weeks preceding, she was hindered by a RLE cellulitis also requiring antibiotics. Work-up: -CTH: unremarkable. I reviewed these images personally. -CTA head and neck: no significant stenosis. I reviewed these images pe rsonally. -MRI brain: acute left central upper medulla/lower loco punctate area of acute/subacute ischemia. Mild chronic changes. I reviewed these images personally. -TTE: ER 55-60%; LA mildly dilated. -Labs: A1c 5.7; LDL 125 Consults Requesting physician: Ivana Bai Review of Systems Review of Systems ROS Unobtainable: All systems reviewed & are unremarkable except as noted in HPI and below PFSH Medical History (Updated 01/31/19 @ 21:57 by Rosibel Gaitan MD) Allergic rhinitis (Chronic) Anemia (Chronic) Asthma (Chronic) Atrial fibrillation (Chronic) Diverticulitis 2011 and 2013 Hypertension, essential, benign (Chronic) Hypothyroidism (Chronic) Nonhealing skin ulcer (Chronic) RLE Obesity (BMI 30.0-34.9) (Acute) Sleep apnea (Chronic) Uses CPAP Vitamin D deficiency (Chronic) Surgical History (Updated 01/29/19 @ 15:47 by Ivana Bai MD) Colonoscopy - MAC (08/10/17) History of esophagogastroduodenoscopy (EGD) (Chronic) Family History (Updated 01/29/19 @ 15:48 by Ivana Bai MD) Maternal Grandfather Heart disease Mother Diabetes Hypertension Pancreatic cancer Maternal Grandmother Diabetes Father Head and neck cancer Brain cancer Other Diverticulitis Social History (Updated 01/29/19 @ 15:49 by Ivana Bai MD) Smoking/Tobacco Use Status: Never Alcohol Intake: never Drug use: Never Do you feel safe in your relationship?: Yes Visit Medication and Allergies Active Medications Generic Name Dose Route Start Last Admin Trade Name Freq PRN Reason Stop Dose Admin Acetaminophen 325 - 650 mg 01/29/19 11:31 Tylenol PO Q4H PRN PRN Al Hydrox/Mg Hydrox/Simethicone 30 ml 01/29/19 11:31 Mylanta Liquid PO Q2H PRN PRN Apixaban 5 mg 01/29/19 20:00 01/31/19 08:35 Eliquis PO 5 mg BID LESLY Administration Aspirin 81 mg 01/30/19 08:30 01/31/19 08:34 PO 81 mg DAILY LESLY Administration Atorvastatin Calcium 20 mg 01/29/19 20:00 01/30/19 19:55 Lipitor PO 20 mg QPM LESLY Administration Clindamycin HCl 300 mg 01/29/19 20:00 01/31/19 13:15 Cleocin PO 300 mg TID LESLY Administration Dimethicone/Zinc Oxide 0 gm 01/29/19 11:31 Emilie Protect Cream TP PRN PRN Fluticasone Propionate 0 gm 01/30/19 08:30 01/31/19 08:33 Flonase NS 2 spr BID LESLY Administration IV Miscellaneous Supplies 1 each 01/29/19 09:45 IV DIRECTED LESLY Iohexol 100 ml 01/29/19 10:00 01/29/19 09:52 Omnipaque 350 IJ 02/28/19 23:59 85 ml DIRECTED LESLY Administration Levothyroxine Sodium 50 mcg 01/31/19 06:00 01/31/19 05:58 Levothroid PO 50 mcg DAILY@0600 LESLY Administration Metoprolol Tartrate 50 mg 01/30/19 20:00 01/31/19 08:35 Lopressor PO 50 mg BID LESLY Administration Sodium Chloride 0 ml 01/29/19 09:42 01/31/19 08:33 Saline Flush 10 Ml Syringe IVP 10 ml PRN PRN Administration Allergies penicillin V potassium [From Pen-Vee K] Allergy (Intermediate, Unverified 01/17/19 14:38) rash albuterol Allergy (Mild, Unverified 01/29/19 09:52) Exam Narrative Exam Narrative: Physical Exam: Gen: Patient of apparent stated age, NAD Head and face: no facial or cranial abnormalities Neck: Supple, no meningismus, no occipital tenderness CV: irregularly irregular Resp: CTA B/L Abd: soft, nontender, nondistended Ext: No edema. No clubbing or cyanosis. No bony deformity. Neuro Exam: Language: fluency, naming, repetition, and comprehension intact; Mental Status: AAOx3, current events intact, fund of knowledge intact; Speech: no dysarthria Cranial nerves: Funduscopy: not performed CN II: visual raza intact CN III, IV, : extraocular movements intact, no nystagmus, pupils symmetric and reactive to light CN V: face sensation intact to LT and PP CN VII: no facial asymmetry noted CN VIII: hearing intact bilaterally CN IX, X: palate rises symmetrically CN XI: trapezius/SCM 5/5 bilaterally CN XII: protrudes tongue symmetrically Sensory: intact to LT, PP, vibration, and joint position in all extremities Motor: bulk and tone intact. Fine motor movements intact bilaterally. No pronator drift. Strength 5/5 throughout including the deltoids, biceps, tricep s, wrist extensors, hip flexors, knee flexors, knee extensors, ankle flexors, and ankle extensors. Reflexes: 2+ at the biceps, triceps, brachioradialis, and patella; absent at the achilles tendons bilaterally; toes neutral bilaterally; Coordination: FTN and HTS intact bilaterally Gait: deferred Results Last Vital Signs Temp 36.9 C 01/31/19 11:10 Pulse 86 01/31/19 11:10 Resp 16 01/31/19 11:10 BP 164/104 H 01/31/19 11:10 Pulse Ox 98 01/31/19 11:10 Labs Result diagrams: 01/30/19 07:02 01/31/19 06:50 Labs: Laboratory Results - last 24 hr 01/31/19 06:50 Sodium 140 Potassium 3.8 Chloride 105 Carbon Dioxide 23.8 Anion Gap 11.2 H BUN 15 Creatinine 0.87 Estimated GFR/1.73 m2 >= 60.00 Glucose 103 H Calcium 8.9 Magnesium 2.1
--- NOTE | 2019-01-31 16:41 | CHAPLAIN ---
Adali was sitting up in a chair visiting with her when I stopped in. She told me about having a TIA, and waiting for more tests and tests results, but feeling much better. Her seems very supportive. Adali was very pleasant and easily engaged in a conversation. We talked about the anxiety waiting for tests and results can cause.
--- NOTE | 2019-01-31 17:04 | DSE_ITS ---
Date of service: 01/31/19 Time of Service: 17:05 DS: Diagnosis Discharge Diagnosis (1) TIA (transient ischemic attack): Status: Acute (2) Abscessed tooth: Status: Acute (3) Hypothyroidism: Status: Chronic (4) Atrial fibrillation: Status: Chronic (5) Hypertension, essential, benign: Status: Chronic (6) Sleep apnea: Status: Chronic (7) DVT prophylaxis: Status: Acute (8) Discharge planning issues: Status: Acute Discharge Plan Disposition Patient Disposition: HOME Condition: Stable Discharge Details Chief Complaint: CVA/TIA Clinical Impression: Brain TIA Reason For Visit: TIA Admit Date/Time: 01/29/19 11:31 Admit Provider: Ivana Bai Attending Provider: Ivana Bai Primary Care Provider: Avi Castillo ED Provider: Gavin Swanson [facility] Course Hospital Course: Ms Vinson is a 63 year old female with PMHx of Atrial fibrillation, on eliquis, as well as hypertension, hypothyroidism, VALERIE on CPAP, and obesity with BMI of 34, who was washing up this morning when she noticed a sudden weakness in her right arm and leg. She felt like her leg was not doing what she was telling it to. She could not walk. She called her on the phone to tell him that he needs to come in to the house. She noticed then that she was slurring her words, but she states that the right words were coming out. She denied any sensation of facial weakness, numbness, or tingling. She did not look at herself in the mirror so she is not sure if she had a facial droop. She denied any difficulty swallowing. When her offered to take her to the hospital in his car, she was unable to walk, so EMS was called. When they arrived, the patient was still having right-sided weakness and slurred speech. The patient felt much better in the ambulance and, by the time she arrived to the ED, she was symptom free. Her NIH stroke scale score was zero. Her CT and CTA of the head/neck were negative. she was referred to observation for TIA, CVA work up. She underwent an MRI of brain which did show a small left acute pontine lacunar infarct. she was started on asa 81 mg and atorvastatin 20 mg at . she was seen by neurology, Dr Gaitan who will follow her in outpatient clinic. Of note, she is currently on day 3 of clindamycin for a tooth infection which she was advised to continue as directed. She had an echo that showed The left ventricle is normal size. The left ventricular systolic function is normal. The left ventricular ejection fraction is within the normal range. There is normal left ventricular wall thickness. Regional wall motion is grossly normal. Diastolic function cannot be fully analyzed given atrial fibrillation. There is normal tissue Doppler velocity LVEF is 55-60%. She is anticoagulated on eliquis. recommendations are for outpatient cardiology follow up for stress testing for reports of dyspnea on exertion. she is in stable condition and hemodynamically stable and back to her baseline and will be discharged to home with outpatient follow up. Home Meds and New Rx's Prescriptions: New aspirin 81 mg Tablet,Chewable 81 mg PO DAILY 30 Days Qty: 30 RF: 0 atorvastatin 20 mg tablet 20 mg PO QHS Qty: 30 RF: 0 Continued metoprolol tartrate 50 MG tablet 50 mg PO BID RF: 0 Flovent HFA 120 PUFF HFA aerosol inhaler 2 puff Inhalation BID RF: 0 Eliquis 5 MG tablet 5 mg PO BID RF: 0 clindamycin HCl 150 mg Capsule 300 mg PO TID RF: 0 levothyroxine 50 mcg Capsule 50 mcg PO DAILY@0400 RF: 0 Discharge Instructions Instructions: Ischemic Stroke (DC) Additional Instructions: medications called to [facility]. Dr Gaitan's office (neurology) will call tomorrow with follow up appoin tment. You will need cardiology follow up for outpatient cardiac stress testing for dyspnea on exertion. please call to schedule as soon as possible. Stand Alone Forms: Nursing Discharge Form Referrals: Avi Castillo NP [Primary Care Provider] - 02/03/19 4:15 pm Activity:: Activity as Tolerated Equipment/Supplies:: No Equipment Needed Diet:: Low Sodium Discharge Orders Discharge Orders: Discharge Order (Routine); Ordered 01/31/19 Ordered By: Namrata Rashid DS: Summary Status at Discharge Functional status at discharge: independent ambulation Overall status at discharge: patient is back to baseline Mental Status: mental status grossly normal Speech and Movement: speech and movement normal Mood: congruent mood Affect: normal affect Exam Narrative Exam Narrative: General: Very pleasant female of stated age, pink warm dry and well perfused, A&ox3, sitting comfortably in chair, no focal neurological deficits. HEENT:EOMI, atraumatic, normocephalic, moist mucosa Cardiovascular: irregularly irregular rhythm, not tachycardic Lungs: dim bases, otherwise clear, respirations even and unlabored. Gastrointestinal: soft, nontender, nondistended Extremities: trace edema BLE's, moves all extremities equally, marketing technology specialist equal bilaterally Psych Mental Status: mental status grossly normal Speech and Movement: speech and movement normal Mood: congruent mood Affect: normal affect DS: Data Vitals/I&O Vitals and I&O: Vital Signs Temperature 36.9 C 01/31/19 11:10 Temperature Source Tympanic 01/31/19 11:10 Pulse 86 01/31/19 11:10 Pulse Rhythm Irregular 01/31/19 13:49 Pulse 107 H 01/29/19 11:05 Respiratory Rate 16 01/31/19 11:10 Respiratory Effort Non-Labored 01/31/19 13:49 Respiratory Depth Normal 01/31/19 13:49 Respiratory Pattern Normal 01/31/19 13:49 Blood Pressure 164/104 H 01/31/19 11:10 Blood Pressure Mean 105 01/29/19 11:00 Blood Pressure Position Sitting 01/29/19 10:04 Pulse Oximetry 98 01/31/19 11:10 Oxygen Delivery Method Room Air 01/31/19 11:10 Oxygen Flow Rate 0 01/31/19 11:10 Fraction of Inspired Oxygen (FIO2) 21 01/31/19 10:35 Pain Level 0 01/31/19 11:10 Comment 01/31/19 09:05 Intake & Output 01/30/19 01/31/19 01/31/19 23:59 11:59 23:59 Intake Total 1452.5 / 3697.5 410 / 410 Output Total 900 / 1350 700 / 700 Balance 552.5 / 2347.5 -290 / -290 Weight 90 kg Intake: IV 812.5 / 2707.5 Oral 640 / 990 400 / 400 Output: Urine 900 / 1350 700 / 700 Other: Urine Color Yellow Yellow Urine Appearance Clear Clear Clear Urine Odor Normal Voiding Methods Toilet Toilet Data Completed and Pending Labs on day of discharge: Labs from last 24 hours 01/31/19 06:50 Sodium 140 Potassium 3.8 Chloride 105 Carbon Dioxide 23.8 Anion Gap 11.2 H BUN 15 Creatinine 0.87 Estimated GFR/1.73 m2 >= 60.00 Glucose 103 H Calcium 8.9 Magnesium 2.1 [facility] Medical History (Updated 01/29/19 @ 16:02 by Ivana Bai MD) Allergic rhinitis (Chronic) Anemia (Chronic) Asthma (Chronic) Atrial fibrillation (Chronic) Diverticulitis 2011 and 2013 Hypertension, essential, benign (Chronic) Hypothyroidism (Chronic) Nonhealing skin ulcer (Chronic) RLE Obesity (BMI 30.0-34.9) (Acute) Sleep apnea (Chronic) Uses CPAP Vitamin D deficiency (Chronic) Surgical History (Updated 01/29/19 @ 15:47 by Ivana Bai MD) Colonoscopy - [facility] (08/10/17) History of esophagogastroduodenoscopy (EGD) (Chronic) Family History (Updated 01/29/19 @ 15:48 by Ivana Bai MD) Maternal Grandfather Heart disease Mother Diabetes Hypertension Pancreatic cancer Maternal Grandmother Diabetes Father Head and neck cancer Brain cancer Other Diverticulitis Social History (Updated 01/29/19 @ 15:49 by Ivana Bai MD) Smoking/Tobacco Use Status: Never Alcohol Intake: never Drug use: Never Do you feel safe in your relationship?: Yes
--- NOTE | 2019-01-31 17:46 | PDOC.CMDIS ---
- If Service Date Differs Date of service: 01/31/19 Time of Service: 17:46 LACE Index Scoring Tool - Questions: Length of Stay (in days): 2 Acuity (Admit via E.D.?): Yes Comorbidities: Cerebrovascular Disease E.D. Visits: 1 - Answers: Total Score: 7 Risk of Readmission: Low Risk Care Management Discharge Reason for Hospitalization: TIA Discharge Plan: Adali will return home with no additional services at this time. She will have follow up appointments with her PCP and Cardiology. Her , Ernie will drive her home via private vehicle. Patient/Family Education Needs: Review discharge instructions regarding activity levels and medication, discussion of self care needs including Ask Me Three
== END 2019-01-31 17:48 | disposition home or self-care (01) ==
LOC: ER 11:54 → MS 12:10
PROVIDERS: Admitting Provider Internal Medicine; Emergency Provider Emergency Medicine; PCP Nurse Practitioner Family; Visit Provider Internal Medicine
DX: I63.30 Cerebral infarction due to thrombosis of unspecified cerebral artery (principal); G81.91 Hemiplegia, unspecified affecting right dominant side; R29.810 Facial weakness; K04.7 Periapical abscess without sinus; E03.9 Hypothyroidism, unspecified; I48.91 Unspecified atrial fibrillation; G47.33 Obstructive sleep apnea (adult) (pediatric); Z79.01 Long term (current) use of anticoagulants; E66.9 Obesity, unspecified; Z68.34 Body mass index [BMI] 34.0-34.9, adult; R29.700 NIHSS score 0; I10 Essential (primary) hypertension
CPT/HCPCS: 36415; 70496; 70498; 80048; 80053; 80061; 93005; 99217; 99220; 99232; 99255; 99285; 70551; 71045; 81003; 83036; 83735; 84436; 84439; 84443; 84484; 85025; 85610; 85730; 93010; 93306; 99225; G0378; J3490

== ENCOUNTER 2019-02-07 01:52 | Outpatient (CLI) | payer BC, SELFPAY ==
--- NOTE | 2019-02-07 11:44 | DI.US_ITS ---
EXAM: US THYROID CLINICAL HISTORY: ENLARGED THYROID E04.9 TECHNIQUE: Ultrasound performed using standard protocol. FINDINGS: The right lobe measures 3.9 x 0.9 x 1.0 cm. The left lobe measures 3.4 x 1.1 x 1.1 cm. There is nor mal blood flow to the thyroid gland. There are 2 nodules seen on the right. The larger measures 3.8 mm. The smaller measures 3.7 mm. No echogenic focus is associated with either these nodules. No i nternal blood flow is seen in either of these nodules. Two nodules are seen in the left lobe. The s maller measures 3.9 mm. It is avascular. The larger measures 5.3 mm x 3.1 mm x 5.3 cm. It is solid and shows some blood flow peripherally. The isthmus is within normal limits at 3.3 mm. IMPRESSION: Multinodular thyroid gland.
== END 2019-02-07 02:12 ==
PROVIDERS: PCP Nurse Practitioner Family; Visit Provider Nurse Practitioner Family
DX: E04.2 Nontoxic multinodular goiter (principal)
CPT/HCPCS: 76536

== ENCOUNTER 2019-02-11 17:56 | Inpatient (IN) | payer BC, SELFPAY ==
[2019-02-11 18:00] VITALS: BP 168/93; PULSE 91; RESP 14; TEMP 37.1; O2SAT 98
[2019-02-11] MEDS: Normal Saline 1,000 ML 1000 ML IV (18:40)
[2019-02-11] MEDS: Normal Saline Flush 10 ML SYR IVP (18:41)
--- NOTE | 2019-02-11 18:42 | NUR.NOTE ---
pt up to use bathroom voided only denies rectal bleeding at that time provider aware Nursing Note:
[2019-02-11 18:46] LABS: Abs Immature Grans 0.02 k/cumm (0.0-0.09); Absolute Basophil Count 0.04 k/cumm (0.0-0.2); Absolute Eosinophil Count 0.21 k/cumm (0.0-0.7); Absolute Lymphocyte Count 1.96 k/cumm (1.2-3.4); Absolute Monocyte Count 0.89 k/cumm (0.11-0.7); Basophils % 0.5; Eosinophils % 2.4; HCT 40.6 % (36.0-46.0); HGB 13.5 g/dL (12.0-15.5); Immature Grans % 0.2; Lymphocytes % 22.7; Mean Corp. HGB Concentration 33.3 g/dL (32.0-36.0); Mean Corpuscular Hemoglobin 28.5 pg (27.0-33.0); Mean Corpuscular Volume 85.8 fL (80-95); Mean Platelet Volume 8.4 fL (8.0-11.0); Monocytes % 10.3; Neutrophils % 63.9; Platelet Count 326 x1000/uL (130-400); RBC 4.73 m/cumm (4.00-5.20); RBC Distribution Width 13.2 % (11.7-14.6); White Blood Cell Count 8.62 k/cumm (4.4-10.8)
[2019-02-11 18:53] LABS: ALT 30 U/L (14-59); AST 18 U/L (15-37); Albumin 3.5 g/dL (3.4-5.0); Alkaline Phosphatase 90 U/L (46-116); Anion Gap 11.1 mmol/L (3-11); BUN 18 mg/dL (7-18); Bilirubin, Total 0.4 mg/dL (0.2-1.0); CO2 24.9 mmol/L (21.0-32.0); Calcium 8.9 mg/dL (8.5-10.1); Chloride 104 mmol/L (98-107); Glucose 97 mg/dL (70-100); Potassium 3.5 mmol/L (3.5-5.1); Sodium 140 mmol/L (136-145)
[2019-02-11 18:57] LABS: INR 1.2 (0.9-1.1); PTT Activated 29.1 sec (21.0-31.4); Prothrombin Time 11.6 sec (9.3-11.0)
[2019-02-11 19:15] VITALS: BP 162/99; PULSE 102; RESP 16; TEMP 37; O2SAT 100
--- NOTE | 2019-02-11 19:24 | NUR.NOTE ---
pt up to bathroom some blood noted darker clots with red blood Nursing Note:
--- NOTE | 2019-02-11 20:16 | W.ED.GENAD ---
Discharge Plan Disposition Patient Disposition: [facility] INPATIENT Condition: Stable Discharge Details Chief Complaint: GI Bleed Clinical Impression: Acute GI bleeding Primary Care Provider: Avi Castillo ED Provider: Ruth Min Home Meds and New Rx's Prescriptions: No Action metoprolol tartrate 50 MG tablet 50 mg PO BID RF: 0 Flovent HFA 120 PUFF HFA aerosol inhaler 2 puff Inhalation BID RF: 0 Eliquis 5 MG tablet 5 mg PO BID RF: 0 levothyroxine 50 mcg Capsule 50 mcg PO DAILY@0400 RF: 0 aspirin 81 mg Tablet,Chewable 81 mg PO DAILY 30 Days Qty: 30 RF: 0 atorvastatin 20 mg tablet 20 mg PO QHS Qty: 30 RF: 0 Medical Decision Making Is a 63-year-old woman who presents to the emergency room for an episode of GI bleeding this evening that occurred at approximately 6:00 PM. Patient reports she had sensation to defecate went to the bathroom and filled the toilet with blood. Patient also noted blood on the paper. Patient denies associated lightheaded or dizziness. Patient denies nausea, vomiting or abdominal pain. Patient has a soft and benign abdominal exam today. Patient denies associated shortness of breath. Patient feeling at her baseline otherwise. Patient recently added aspirin to her daily regimen of medications which includes Eliquis. Patient currently on Eliquis for A. fib. Patient added aspirin 2 weeks ago after a recent stroke. Patient does report an episode of GI bleeding several years ago for which she did have a colonoscopy. GI bleeding at that time was attributed to possible diverticular bleeding. Patient's labs are reassuring. Patient's vital signs are stable. Discussed patient's benign abdominal exam, Reassuring labs and her history of presentation. Family preference which I agree with his admission to the hospital at this time for observation and possible colonoscopy to identify bleeding site given her use of blood thinners. Family agree with plan of care. Spoke with Dr. Barba hospitalist who will admit the patient. HPI General Date/Time Provider Initiated Documentation: 02/11/19 18:04. HPI Narrative: Is a 63-year-old woman who is very pleasant presenting to the emergency room this evening for an episode of GI bleeding which began after having a sensation for urge to defecate. Patient reports she filled the toilet bowl with blood and also noted blood on the toilet paper. Patient denies any associated abdominal pain. Denies headache or dizziness. Denies nausea or vomiting. Patient does report she is taking Eliquis which she takes for A. fib. Patient recently had a stroke 2 weeks ago. After which they added aspirin to her Eliquis. Patient does report an episode of GI bleeding multiple years ago ultimately she was admitted to the hospital had a colonoscopy and they attributed her GI bleeding at that time to possible diverticular bleeding. No urinary urgency or frequency or dysuria. No difficulty breathing shortness of breath or wheezing. No other concerns or complaints at this time. Related Data Home Medications Medication Instructions Recorded Confirmed Eliquis 5 mg PO BID 01/29/14 02/11/19 Flovent HFA 2 puff INHALATION BID 01/29/14 02/11/19 metoprolol tartrate 50 mg PO BID 01/29/14 02/11/19 levothyroxine 50 mcg PO DAILY@0400 01/30/19 02/11/19 aspirin 81 mg PO DAILY 30 Days #30 tab 01/31/19 02/11/19 atorvastatin 20 mg PO QHS #30 tab 01/31/19 02/11/19 Previous Rx's Medication Instructions Recorded aspirin 81 mg PO DAILY 30 Days #30 tab 01/31/19 atorvastatin 20 mg PO QHS #30 tab 01/31/19 Allergies Allergy/AdvReac Type Severity Reaction Status Date / Time penicillin V potassium Allergy Intermediate rash Unverified 02/11/19 18:05 [From Ralf Alvarez] albuterol Allergy Mild Unverified 02/11/19 18:05 General Stated Complaint: GI Bleed BREE: 3 Review of Systems All systems reviewed & are unremarkable except as noted in HPI and below Constitutional Constitutional: Denies chills, Denies fatigue, Denies fever(s), Denies headache(s), Denies lethargy and Denies malaise ENT Ears, Nose, Mouth, and Throat: Denies headache(s) Gastrointestinal Gastrointestinal: Denies abdominal pain, Denies melena, Denies bloating, Reports hematochezia, Denies constipation, Denies cramping, Denies diarrhea, Denies nausea and Denies vomiting Genitourinary Genitourinary: Denies dysuria Neurologic Neurologic: Denies headache(s) Endocrine Endocrine: Denies fatigue [facility] Medical History Allergic rhinitis (Chronic) Anemia (Chronic) Asthma (Chronic) Atrial fibrillation (Chronic) Diverticulitis 2011 and 2013 Hypertension, essential, benign (Chronic) Hypothyroidism (Chronic) Nonhealing skin ulcer (Chronic) RLE Obesity (BMI 30.0-34.9) (Acute) Sleep apnea (Chronic) Uses CPAP Vitamin D deficiency (Chronic) Surgical History Colonoscopy - [facility] (08/10/17) History of esophagogastroduodenoscopy (EGD) (Chronic) Family History (Updated 01/29/19 @ 15:48 by Ivana Bai MD) Maternal Grandfather Heart disease Mother Diabetes Hypertension Pancreatic cancer Maternal Grandmother Diabetes Father Head and neck cancer Brain cancer Other Diverticulitis Social History Smoking/Tobacco Use Status: Never Alcohol Intake: never Drug use: Never Substance use type: does not use Do you feel safe at home: Yes Do you feel safe in your relationship?: Yes Exam Narrative Exam Narrative: CONST: Healthy appearing patient, in no acute distress. Well hydrated. Alert and alert. NECK: Normal visual inspection. FROM. No lymphadenopathy. Trachea midline. No Midline tenderness. CHEST: Normal insepection of the chest. RESP: Normal respiratory effort. Speaking full sentences. No cough. No wheezing. No retractions. Clear to auscaltation. Breath sound equal and present bilaterally. CARDIO: No JVD. Normal PMI. Regular Rate. Regular Rhythm. Normal peripheral pulses. GI: Normal inspection of abdomen. No distension. Soft. Nontender. Bowel sounds present in all 4 quadrants. No rebound. No gaurding. Rectal exam: Patient with external hemorrhoids without active bleeding from hemorrhoids. Patient does have bright red blood noted on digital exam. No pain noted on rectal exam MUSCULOSKELETAL: Normal Gait. FROM of all extremities. Distal neurovascularly intact. Sensation intact distally. SKIN: Normal. Dry. No rashes. NEURO: Alert and awake. Speech clear. PSYCH: Normal affect. Cooperative. Course Vital Signs Vital signs: Vital Signs Temperature 37.1 C 02/11/19 18:00 Pulse 91 H 02/11/19 18:00 Respiratory Rate 14 02/11/19 18:00 Blood Pressure 168/93 H 02/11/19 18:00 Pulse Oximetry 98 02/11/19 18:00 Temperature 37 C 02/11/19 19:15 Temperature Source Skin 02/11/19 19:15 Pulse 102 H 02/11/19 19:15 Respiratory Rate 16 02/11/19 19:15 Respiratory Effort Non-Labored 02/11/19 18:03 Blood Pressure 162/99 H 02/11/19 19:15 Blood Pressure Position Sitting 02/11/19 18:00 Pulse Oximetry 100 02/11/19 19:15 Oxygen Delivery Method Room Air 02/11/19 19:15 Oxygen Flow Rate 0 02/11/19 19:15 Pain Level 0 02/11/19 19:15 Lab/Test Results Lab/Test Results: Laboratory Tests Range/Units 02/11/19 02/11/19 02/11/19 18:16 18:16 18:16 WBC (4.4-10.8) k/cumm 8.62 RBC (4.00-5.20) m/cumm 4.73 Hgb (12.0-15.5) g/dL 13.5 Hct (36.0-46.0) % 40.6 MCV (80-95) fL 85.8 MCH (27.0-33.0) pg 28.5 MCHC (32.0-36.0) g/dL 33.3 RDW (11.7-14.6) % 13.2 Plt Count (130-400) x1000/uL 326 MPV (8.0-11.0) fL 8.4 Immature Gran % 0.2 Neutrophils % 63.9 Lymphocytes % 22.7 Monocytes % 10.3 Eosinophils % 2.4 Basophils % 0.5 Absolute Neutrophils (1.2-6.7) k/cumm 5.50 Absolute Lymphocytes (1.2-3.4) k/cumm 1.96 Absolute Monocytes (0.11-0.7) k/cumm 0.89 H Absolute Eosinophils (0.0-0.7) k/cumm 0.21 Absolute Basophils (0.0-0.2) k/cumm 0.04 PT (9.3-11.0) sec 11.6 H INR (0.9-1.1) 1.2 H APTT (21.0-31.4) sec 29.1 Sodium (136-145) mmol/L 140 Potassium (3.5-5.1) mmol/L 3.5 Chloride (98-107) mmol/L 104 Carbon Dioxide (21.0-32.0) mmol/L 24.9 Anion Gap (3-11) mmol/L 11.1 H BUN (7-18) mg/dL 18 Creatinine (0.55-1.02) mg/dL 0.80 Estimated GFR/1.73 m2 (mL/min/1.73m2) >= 60.00 Glucose (70-100) mg/dL 97 Calcium (8.5-10.1) mg/dL 8.9 Total Bilirubin (0.2-1.0) mg/dL 0.4 AST (15-37) U/L 18 ALT (14-59) U/L 30 Alkaline Phosphatase (46-116) U/L 90 Total Protein (6.4-8.2) g/dL 8.0 Albumin (3.4-5.0) g/dL 3.5 Patient ABO/Rh Antibody Screen Range/Units 02/11/19 18:35 WBC (4.4-10.8) k/cumm RBC (4.00-5.20) m/cumm Hgb (12.0-15.5) g/dL Hct (36.0-46.0) % MCV (80-95) fL MCH (27.0-33.0) pg MCHC (32.0-36.0) g/dL RDW (11.7-14.6) % Plt Count (130-400) x1000/uL MPV (8.0-11.0) fL Immature Gran % Neutrophils % Lymphocytes % Monocytes % Eosinophils % Basophils % Absolute Neutrophils (1.2-6.7) k/cumm Absolute Lymphocytes (1.2-3.4) k/cumm Absolute Monocytes (0.11-0.7) k/cumm Absolute Eosinophils (0.0-0.7) k/cumm Absolute Basophils (0.0-0.2) k/cumm PT (9.3-11.0) sec INR (0.9-1.1) APTT (21.0-31.4) sec Sodium (136-145) mmol/L Potassium (3.5-5.1) mmol/L Chloride (98-107) mmol/L Carbon Dioxide (21.0-32.0) mmol/L Anion Gap (3-11) mmol/L BUN (7-18) mg/dL Creatinine (0.55-1.02) mg/dL Estimated GFR/1.73 m2 (mL/min/1.73m2) Glucose (70-100) mg/dL Calcium (8.5-10.1) mg/dL Total Bilirubin (0.2-1.0) mg/dL AST (15-37) U/L ALT (14-59) U/L Alkaline Phosphatase (46-116) U/L Total Protein (6.4-8.2) g/dL Albumin (3.4-5.0) g/dL Patient ABO/Rh O Negative Antibody Screen Negative
--- NOTE | 2019-02-11 20:49 | HPE_ITS ---
Date of service: 02/11/19 Time of Service: 20:49 Assessment and Plan Assessment and plan (1) GI bleed: Status: Chronic Assessment and plan: Painless lower GI bleed, diverticular or hemorrhoidal most likely. Heemodynamics satisfactory. Would hold ASA and Eliquis until situation clarifies and monitor hematocritt. Will leave NPO in case needs colonoscopy. History of Present Illness History of Present Illness Chief Complaint: rectal bleeding Narrative: 63 female with h/o AF on Elquis, and lacunar CVA 2 weeks ago, at [facility] ASA was added to her regimen. Prior h/o LGI bleed in 2018 with colo showing diverticulosis. Comes in tonight with single episode of painless rectall bleeding, large volume per patient estimate. Here in ER blod pressure stable and hct 40. Admitted for further evaluation. Feels well at present. Review of Systems All systems reviewed & are unremarkable except as noted in HPI and below PFSH Medical History Allergic rhinitis (Chronic) Anemia (Chronic) Asthma (Chronic) Atrial fibrillation (Chronic) Diverticulitis 2011 and 2013 Hypertension, essential, benign (Chronic) Hypothyroidism (Chronic) Nonhealing skin ulcer (Chronic) RLE Obesity (BMI 30.0-34.9) (Acute) Sleep apnea (Chronic) Uses CPAP Vitamin D deficiency (Chronic) Surgical History Colonoscopy - [facility] (08/10/17) History of esophagogastroduodenoscopy (EGD) (Chronic) Family History Maternal Grandfather Heart disease Mother Diabetes Hypertension Pancreatic cancer Maternal Grandmother Diabetes Father Head and neck cancer Brain cancer Other Diverticulitis Social History Smoking/Tobacco Use Status: Never Alcohol Intake: never Drug use: Never Substance use type: does not use Do you feel safe at home: Yes Do you feel safe in your relationship?: Yes Meds Home Medications and Allergies Home Medications Medication Instructions Recorded Confirmed Type Eliquis 5 mg PO BID 01/29/14 02/11/19 History Flovent HFA 2 puff INHALATION BID 01/29/14 02/11/19 History metoprolol tartrate 50 mg PO BID 01/29/14 02/11/19 History levothyroxine 50 mcg PO DAILY@0400 01/30/19 02/11/19 History aspirin 81 mg PO DAILY 30 Days #30 tab 01/31/19 02/11/19 Rx atorvastatin 20 mg PO QHS #30 tab 01/31/19 02/11/19 Rx Allergies Allergy/AdvReac Type Severity Reaction Status Date / Time penicillin V potassium Allergy Intermediate rash Unverified 02/11/19 18:05 [From Ralf Alvarez] albuterol Allergy Mild Unverified 02/11/19 18:05 Exam Narrative Exam Narrative: 162/99, 102, 16, 37.0. HEENT AT/NC; neck supple; lungs clear; abdomen soft and NT; rectal (per ER, exam not repeated) shows gross; extremities no edema; neuro ox3 non-focal blood Results Labs Result diagrams: 02/11/19 18:16 02/11/19 18:16 Labs: Laboratory Results - last 24 hr 02/11/19 02/11/19 02/11/19 18:16 18:16 18:16 WBC 8.62 RBC 4.73 Hgb 13.5 Hct 40.6 MCV 85.8 MCH 28.5 MCHC 33.3 RDW 13.2 Plt Count 326 MPV 8.4 Immature Gran % 0.2 Neutrophils % 63.9 Lymphocytes % 22.7 Monocytes % 10.3 Eosinophils % 2.4 Basophils % 0.5 Absolute Neutrophils 5.50 Absolute Lymphocytes 1.96 Absolute Monocytes 0.89 H Absolute Eosinophils 0.21 Absolute Basophils 0.04 PT 11.6 H INR 1.2 H APTT 29.1 Sodium 140 Potassium 3.5 Chloride 104 Carbon Dioxide 24.9 Anion Gap 11.1 H BUN 18 Creatinine 0.80 Estimated GFR/1.73 m2 >= 60.00 Glucose 97 Calcium 8.9 Total Bilirubin 0.4 AST 18 ALT 30 Alkaline Phosphatase 90 Total Protein 8.0 Albumin 3.5 Patient ABO/Rh Antibody Screen 02/11/19 18:35 WBC RBC Hgb Hct MCV MCH MCHC RDW Plt Count MPV Immature Gran % Neutrophils % Lymphocytes % Monocytes % Eosinophils % Basophils % Absolute Neutrophils Absolute Lymphocytes Absolute Monocytes Absolute Eosinophils Absolute Basophils PT INR APTT Sodium Potassium Chloride Carbon Dioxide Anion Gap BUN Creatinine Estimated GFR/1.73 m2 Glucose Calcium Total Bilirubin AST ALT Alkaline Phosphatase Total Protein Albumin Patient ABO/Rh O Negative Antibody Screen Negative Last Vital Signs Temp 37 C 02/11/19 19:15 Pulse 102 H 02/11/19 19:15 Resp 16 02/11/19 19:15 BP 162/99 H 02/11/19 19:15 Pulse Ox 100 02/11/19 19:15
[2019-02-11 21:47] VITALS: BP 152/66; PULSE 85; RESP 16; TEMP 36.8; O2SAT 96
--- NOTE | 2019-02-11 21:51 | NUR.NOTE ---
Report to al Syed to go to 212. Denies abd pain, CP, SOB, dizziness.
[2019-02-11 22:19] VITALS: BP 152/97; PULSE 97; RESP 18; TEMP 37.1; O2SAT 97
[2019-02-11] MEDS: Normal Saline 1,000 ML 80 ML IV (23:07)
[2019-02-11] MEDS: Atorvastatin 20 MG TAB PO (23:08)
--- NOTE | 2019-02-11 23:21 | NUR.NOTE ---
Nursing Note: 2315H Patient felt a bowel movement coming and went to the toilet. Small BM seen with clots of red blood noted. Patient is not in pain, no nausea or dizzyness. CC informed.
[2019-02-12] VITALS (9 sets, daily range): BP systolic 137–149; BP diastolic 82–91; PULSE 88–139; RESP 14–18; TEMP 37–37.2; O2SAT 97–99
[2019-02-12] MEDS: Levothyroxine 50 MCG TAB PO (03:53)
[2019-02-12 06:57] LABS: HCT 34.1 % (36.0-46.0); HGB 11.1 g/dL (12.0-15.5)
[2019-02-12 08:29] LABS: Anion Gap 7.4 mmol/L (3-11); BUN 14 mg/dL (7-18); CO2 25.6 mmol/L (21.0-32.0); CREATININE 0.73 mg/dL (0.55-1.02); Calcium 8.3 mg/dL (8.5-10.1); Chloride 111 mmol/L (98-107); Glucose 114 mg/dL (70-100); Magnesium 1.7 mg/dL (1.8-2.4); Sodium 144 mmol/L (136-145)
[2019-02-12] MEDS: Metoprolol 50 MG TAB PO ×2 (09:34→19:13)
[2019-02-12] MEDS: Normal Saline 1,000 ML 80 ML IV (11:12)
--- NOTE | 2019-02-12 11:16 | PHARADMIT ---
Addendum entered by Cathleen Gilliland 02/14/19 15:07: Pharmacy Note Subjective thought blood passed last night is old blood vs ongoing bleeding per progress notes Objective BP-144/102 other VS okay h/h-10.0/31.2(up) Assessment therapeutic dosing of enoxaparin started today (trial prior to starting pt back on apixaban) Plan monitor for rebleeding overnight Original Note: Admission Pharmacy Clinical Review LOWER GI BLEED (Observation) Previous admission discharged 01/31/19 for TIA Code Status Full Code Current Weight 89.358 kg Renally Cleared and Narrow Therapeutic Index Meds CrCl~61.34ml/min QTc Value / Action Taken QTC 437-no meds BP Control, Fever BP 137/86 Afebrile Electrolytes reviewed K+ 4.0 Mag 1.7 DVT Prophylaxis NONE, bleeding, previously on Apixiban for Afib Opiate Usage / Scheduled Bowel Regimen Ordered none Plt/SCr for Heparin / Enoxaparin Plt 326 SCr 0.73 INR for Warfarin INR 1.2 H/H stable, WBC/Bands H/H 11.1/34.1 WBC 8.62 Antibiotic appropriateness n/a Cultures and Sensitivities n/a Surgical ABX d/c within 24 hr DM control / Insulin Dosing Heart Failure (Check EF%) (JANIE's, B-Block, Diuretics) Metoprolol IV to PO Switch Home Meds Reviewed ok Home Meds Not Ordered Apixiban/ASA held intentionally Comments Waiting for clarification of Flovent dose, pt's own or switch to Asmanex Surgery consult
[2019-02-12 12:08] LABS: HGB 10.4 g/dL (12.0-15.5)
--- NOTE | 2019-02-12 13:09 | PDOC.CMIN ---
- If Service Date Differs Date of service: 02/12/19 Time of Service: 13:09 Care Management Initial Assess REASON FOR HOSPITALIZATION:: Lower GI Bleed PAST MEDICAL HISTORY/PAST SURGICAL HISTORY:: Medical: Allergic rhinitis (Chronic), Anemia (Chronic), Asthma (Chronic). Atrial fibrillation (Chronic), Diverticulitis 2011 and 2013, Hypertension, essential, benign (Chronic), Hypothyroidism (Chronic), Nonhealing skin ulcer (Chronic) RLE, Obesity (BMI 30.0-34.9) (Acute), Sleep apnea (Chronic), Uses CPAP, Vitamin D deficiency (Chronic). Sirgical: Colonoscopy - MAC (08/10/17), History of esophagogastroduodenoscopy (EGD) (Chronic) PREVIOUS FUNCTIONAL STATUS/SOCIAL/FAMILY SUPPORTS:: Adali lives with her , Jose in [facility]. They have two adult daughters that live nearby and are supportive. She works at the [employer] for the town [facility]. She is independent at baseline. CURRENT FUNCTIONAL STATUS:: Adali was lying in bed when CM met with her. Her was in the room with her. She was pleasant and engaged in conversation. She reported that she was here recently, but for a non related medical issue. She reported feeling better, and that the bleeding has subsided. She stated that she would like to go home soon. CM will continue to follow. ADVANCE DIRECTIVES:: None on file Has patient been provided with information about the portal?: Yes Did the patient sign up for the portal?: No CODE STATUS:: Full Code INSURANCE COVERAGE / FINANCIAL ISSUES:: BS CURRENT HOME/COMMUNITY SERVICES/EQUIPMENT:: Adali does not have any current services or equipment. PRIMARY CARE PHYSICIAN:: Avi Castillo NP POTENTIAL DISCHARGE NEEDS:: Evalutation for further needs, follow up appointments PATIENT/FAMILY EDUCATION NEEDS:: Review discharge instructions, discussion of self care needs including Ask Me Three ANTICIPATED BARRIERS TO DISCHARGE:: None identified TRANSPORTATION:: Anticipate Adali will transport him home via private vehicle driven by her . PLAN:: Anticipate Adali will return home with no additional services when medically cleared. She will follow up with her PCP, as recommended. Her will drive her home via private vehicle. CM will continue to follow and support patient with discharge planning. Readmission - Within the Past 30 Days Yes or No: Y - Date of First Admission Date of 1st Admission: 01/29/19 - Date of this Admission Date of Admission: 02/11/19 This admission was: Through ED - Office Visit Since 1st Admission Have you seen your PCP in the office since discharge?: Yes Date of PCP Appointment: 02/03/2019 Describe barriers for scheduling or getting an appointment: No barriers. - I. Interview patient and/or Family Difficulty reaching your doctor or getting an office appt?: No Have you had trouble purchasing/ or taking medication?: No Have you had trouble with getting meals at home?: No Did you feel ready for discharge when you left the last time: Yes (Here for an unrelated issue.) Did you call your physician beore you came to the ED?: No - If the patient had a VNA ordered Did the patient have a VNA order?: No - ED visits How many ED visits in the past 12 months: 2 - Assessment for Readmission Summary of readmission circumstances, based upon interviews: Adali is here for an unrelated medical issue. She did feel ready to go home previously, and reported that she had wonderful care. She came to the ED after passing blood, and she did not notify her PCP. She reports that she does not believe the two visits are related.
[2019-02-12] MEDS: MAGNESIUM SULFATE 2 GM/50 ML BAG IVPB (13:40)
--- NOTE | 2019-02-12 14:40 | W.PM.PROGNOT ---
Date of Service Date of service: 02/12/19 Time of Service: 14:40 Assessment and Plan Assessment and plan (1) Lower GI bleed: Status: Acute Assessment and plan: By description, I suspect diverticular bleed. General surgery is consulted. Keep NPO, continue to hold asa and eliquis. Place on tele. Trend H/H. (2) Anemia due to acute blood loss: Status: Acute Assessment and plan: As above - continue to trend H/H. Discussed the idea of a potential blood transfusion with patient - she consents in case she does end up needing it. (3) H/O: CVA (cerebrovascular accident): Status: Acute Assessment and plan: Hold asa/eliquis for now. Continue statin. (4) Hypertension, essential, benign: Status: Chronic Assessment and plan: Set holding parameters on BB. (5) Hypothyroidism: Status: Chronic Assessment and plan: Continue synthroid (6) Sleep apnea: Status: Chronic Assessment and plan: Continue home CPAP (7) Atrial fibrillation: Status: Chronic Assessment and plan: Rate controlled. Continue beta jeanna with holding parameters. Hold anticoagulation as above (8) Discharge planning issues: Status: Acute Assessment and plan: Full code (9) DVT prophylaxis: Status: Acute Assessment and plan: TEDs + SCD's Chemical DVT ppx is contraindicated in setting of acute bleeding. Subjective Subjective Interval history since last seen: Ms Vinson describes more burgundy blood in stool overnight, this morning, last bloody BM being at 11 am. She states there has been no pain with this, but she did have a sense of urgency. Denies dizziness, chest pain, shortness of breath, nausea, fever. Exam Narrative Exam Narrative: General: very pleasant middle-aged female, laying comfortably in bed, A&Ox3, NAD HEENT: EOMI, MMM Heart: irregularly irregular rhythm Lungs: quiet crackles at B bases GI: abdomen is soft, nontender, nondistended Extremities: no e/c/c BLE's, trace pedal pulses B Objective Objective Clinical Data: Abnormal lab results 02/11/19 02/11/19 02/11/19 Range/Units 18:16 18:16 18:16 Hgb (12.0-15.5) g/dL Hct (36.0-46.0) % Absolute Monocytes 0.89 H (0.11-0.7) k/cumm PT 11.6 H (9.3-11.0) sec INR 1.2 H (0.9-1.1) Chloride (98-107) mmol/L Anion Gap 11.1 H (3-11) mmol/L Glucose (70-100) mg/dL Calcium (8.5-10.1) mg/dL Magnesium (1.8-2.4) mg/dL 02/12/19 02/12/19 02/12/19 Range/Units 06:45 06:45 11:50 Hgb 11.1 L D 10.4 L (12.0-15.5) g/dL Hct 34.1 L 32.0 L (36.0-46.0) % Absolute Monocytes (0.11-0.7) k/cumm PT (9.3-11.0) sec INR (0.9-1.1) Chloride 111 H (98-107) mmol/L Anion Gap (3-11) mmol/L Glucose 114 H (70-100) mg/dL Calcium 8.3 L (8.5-10.1) mg/dL Magnesium 1.7 L (1.8-2.4) mg/dL Vital Signs Temperature 37 C 02/12/19 08:45 Temperature Source Skin 02/12/19 08:45 Pulse 90 02/12/19 08:45 Pulse Rhythm Irregular 02/12/19 08:45 Respiratory Rate 14 02/12/19 08:45 Respiratory Effort Non-Labored 02/12/19 08:45 Respiratory Depth Normal 02/12/19 08:45 Respiratory Pattern Normal 02/12/19 08:45 Blood Pressure 137/86 02/12/19 08:45 Blood Pressure Position Sitting 02/11/19 18:00 Pulse Oximetry 98 02/12/19 08:45 Oxygen Delivery Method Room Air 02/12/19 08:45 Oxygen Flow Rate 0 02/12/19 08:45 Pain Level 0 02/12/19 08:45 Intake & Output 02/11/19 02/12/19 02/12/19 23:59 11:59 23:59 Intake Total 1000 / 1000 966.667 / 966.667 Output Total 300 / 300 Balance 700 / 700 966.667 / 966.667 Weight 89.358 kg Intake: IV 1000 / 1000 966.667 / 966.667 Output: Urine 300 / 300 Other: Urine Color Yellow Yellow Urine Appearance Clear Clear Comment Per Pt Stool Size Small Small Stool Characteristics Soft Soft Formed Bloody Emesis Description None Voiding Methods Toilet Toilet Laboratory Results WBC 8.62 k/cumm (4.4-10.8) 02/11/19 18:16 RBC 4.73 m/cumm (4.00-5.20) 02/11/19 18:16 Hgb 10.4 g/dL (12.0-15.5) L 02/12/19 11:50 Hct 32.0 % (36.0-46.0) L 02/12/19 11:50 MCV 85.8 fL (80-95) 02/11/19 18:16 MCH 28.5 pg (27.0-33.0) 02/11/19 18:16 MCHC 33.3 g/dL (32.0-36.0) 02/11/19 18:16 RDW 13.2 % (11.7-14.6) 02/11/19 18:16 Plt Count 326 x1000/uL (130-400) 02/11/19 18:16 MPV 8.4 fL (8.0-11.0) 02/11/19 18:16 Immature Gran % 0.2 02/11/19 18:16 Neutrophils % 63.9 02/11/19 18:16 Lymphocytes % 22.7 02/11/19 18:16 Monocytes % 10.3 02/11/19 18:16 Eosinophils % 2.4 02/11/19 18:16 Basophils % 0.5 02/11/19 18:16 Absolute Neutrophils 5.50 k/cumm (1.2-6.7) 02/11/19 18:16 Absolute Lymphocytes 1.96 k/cumm (1.2-3.4) 02/11/19 18:16 Absolute Monocytes 0.89 k/cumm (0.11-0.7) H 02/11/19 18:16 Absolute Eosinophils 0.21 k/cumm (0.0-0.7) 02/11/19 18:16 Absolute Basophils 0.04 k/cumm (0.0-0.2) 02/11/19 18:16 PT 11.6 sec (9.3-11.0) H 02/11/19 18:16 INR 1.2 (0.9-1.1) H 02/11/19 18:16 APTT 29.1 sec (21.0-31.4) 02/11/19 18:16 Sodium 144 mmol/L (136-145) 02/12/19 06:45 Potassium 4.0 mmol/L (3.5-5.1) 02/12/19 06:45 Chloride 111 mmol/L (98-107) H 02/12/19 06:45 Carbon Dioxide 25.6 mmol/L (21.0-32.0) 02/12/19 06:45 Anion Gap 7.4 mmol/L (3-11) 02/12/19 06:45 BUN 14 mg/dL (7-18) 02/12/19 06:45 Creatinine 0.73 mg/dL (0.55-1.02) 02/12/19 06:45 Estimated GFR/1.73 m2 >= 60.00 (mL/min/1.73m2) 02/12/19 06:45 Glucose 114 mg/dL (70-100) H 02/12/19 06:45 Calcium 8.3 mg/dL (8.5-10.1) L 02/12/19 06:45 Magnesium 1.7 mg/dL (1.8-2.4) L 02/12/19 06:45 Total Bilirubin 0.4 mg/dL (0.2-1.0) 02/11/19 18:16 AST 18 U/L (15-37) 02/11/19 18:16 ALT 30 U/L (14-59) 02/11/19 18:16 Alkaline Phosphatase 90 U/L (46-116) 02/11/19 18:16 Total Protein 8.0 g/dL (6.4-8.2) 02/11/19 18:16 Albumin 3.5 g/dL (3.4-5.0) 02/11/19 18:16 Patient ABO/Rh O Negative 02/11/19 18:35 Antibody Screen Negative 02/11/19 18:35
[2019-02-12 18:01] LABS: HCT 31.9 % (36.0-46.0); HGB 10.3 g/dL (12.0-15.5)
[2019-02-12] MEDS: Atorvastatin 20 MG TAB PO (22:41)
[2019-02-13] VITALS (8 sets, daily range): BP systolic 133–159; BP diastolic 81–95; PULSE 77–113; RESP 16–18; TEMP 36.4–37.3; O2SAT 98–99
[2019-02-13 00:57] LABS: HCT 29.5 % (36.0-46.0); HGB 9.8 g/dL (12.0-15.5)
[2019-02-13] MEDS: Normal Saline 1,000 ML 80 ML IV (01:34)
[2019-02-13] MEDS: Levothyroxine 50 MCG TAB PO (03:39)
[2019-02-13 07:48] LABS: HCT 30.5 % (36.0-46.0); HGB 9.9 g/dL (12.0-15.5); Mean Corp. HGB Concentration 32.5 g/dL (32.0-36.0); Mean Corpuscular Hemoglobin 28.9 pg (27.0-33.0); Mean Corpuscular Volume 88.9 fL (80-95); Mean Platelet Volume 8.4 fL (8.0-11.0); Platelet Count 270 x1000/uL (130-400); RBC 3.43 m/cumm (4.00-5.20); RBC Distribution Width 13.2 % (11.7-14.6); White Blood Cell Count 6.26 k/cumm (4.4-10.8)
[2019-02-13 08:11] LABS: BUN 12 mg/dL (7-18); Calcium 8.1 mg/dL (8.5-10.1); Chloride 109 mmol/L (98-107); Glucose 86 mg/dL (70-100); Magnesium 2.1 mg/dL (1.8-2.4); Potassium 3.7 mmol/L (3.5-5.1); Sodium 142 mmol/L (136-145)
[2019-02-13] MEDS: Metoprolol 50 MG TAB PO ×2 (08:25→20:08)
--- NOTE | 2019-02-13 09:14 | W.SURGCON ---
Date of service: 02/13/19 Time of Service: 08:30 Assessment and Plan Assessment and plan (1) Lower GI bleed: Status: Acute Assessment and plan: This is presumably diverticular in origin and exacerbated by ASA and Eliquis. The bleeding has stopped spontaneously. I do not think another colonoscopy will add much information. It is unlikely that the exact bleeding diverticulum can be identified. Her diet can be advanced. Resuming the blood thinner will be based on recommendations from medicine, but due to her recent CVA, will probably need to be sooner rather than later. If the bleeding returns, the patient will contact me. History of Present Illness Narrative: This patient was admitted the evening of February 11 with complaints of a large bloody bowel movement. She was admitted for observation. She had a bloody stool with clots yesterday morning and none since. She denies abdominal pain during this episode. Her recent past medical history is significant for a TIA about 2 weeks ago at which time aspirin was added to her Eliquis therapy for atrial fibrillation. The patient had a similar episode in 2017 at which time an EGD colonoscopy and CT scan were performed. This showed diverticulosis as the likely source of bleeding. Her hemoglobin went from 13.5 to 9.9 this admission but has been stable over the last 24 hours . Review of Systems All systems reviewed & are unremarkable except as noted in HPI and below PFSH Medical History Allergic rhinitis (Chronic) Anemia (Chronic) Asthma (Chronic) Atrial fibrillation (Chronic) Diverticulitis 2011 and 2013 Hypertension, essential, benign (Chronic) Hypothyroidism (Chronic) Nonhealing skin ulcer (Chronic) RLE Obesity (BMI 30.0-34.9) (Acute) Sleep apnea (Chronic) Uses CPAP Vitamin D deficiency (Chronic) Surgical History Colonoscopy - MAC (08/10/17) History of esophagogastroduodenoscopy (EGD) (Chronic) Family History Maternal Grandfather Heart disease Mother Diabetes Hypertension Pancreatic cancer Maternal Grandmother Diabetes Father Head and neck cancer Brain cancer Other Diverticulitis Social History Smoking/Tobacco Use Status: Never Alcohol Intake: never Drug use: Never Substance use type: does not use Do you feel safe at home: Yes Do you feel safe in your relationship?: Yes Exam Narrative Exam Narrative: Appears well No acute distress Abdomen soft, nontender Results Last Vital Signs Temp 97.5 F L 02/13/19 07:20 Pulse 113 H 02/13/19 08:42 Resp 17 02/13/19 07:20 BP 159/81 H 02/13/19 07:20 Pulse Ox 99 02/13/19 07:20 Labs Result diagrams: 02/13/19 07:01 02/13/19 07:01 Labs: Laboratory Results - last 24 hr 02/12/19 02/12/19 02/13/19 11:50 17:55 00:45 WBC RBC Hgb 10.4 L 10.3 L 9.8 L Hct 32.0 L 31.9 L 29.5 L MCV MCH MCHC RDW Plt Count MPV Sodium Potassium Chloride Carbon Dioxide Anion Gap BUN Creatinine Estimated GFR/1.73 m2 Glucose Calcium Magnesium 02/13/19 02/13/19 07:01 07:01 WBC 6.26 RBC 3.43 L Hgb 9.9 L Hct 30.5 L MCV 88.9 MCH 28.9 MCHC 32.5 RDW 13.2 Plt Count 270 MPV 8.4 Sodium 142 Potassium 3.7 Chloride 109 H Carbon Dioxide 25.0 Anion Gap 8.0 BUN 12 Creatinine 0.70 Estimated GFR/1.73 m2 >= 60.00 Glucose 86 Calcium 8.1 L Magnesium 2.1
--- NOTE | 2019-02-13 11:38 | W.PM.PROGNOT ---
Date of Service Date of service: 02/13/19 Time of Service: 11:38 Assessment and Plan Assessment and plan (1) Lower GI bleed: Status: Acute Assessment and plan: Resolved, likely a diverticular bleed. No plans for colonoscopy at this time unless bleeding recurs. Bleeding scan could also be considered if bleeding recurs. Advance diet to full liquids for lunch and soft diet for dinner if no bleeding. Continue to watch on tele. H/H is stable and not requiring transfusion. Continue to hold eliquis and asa today. Resume eliquis tomorrow if no bleeding. (2) Anemia due to acute blood loss: Status: Acute Assessment and plan: As above - H/H stable; will not transfuse at this time. (3) H/O: CVA (cerebrovascular accident): Status: Acute Assessment and plan: Hold asa/eliquis for now. Continue statin. Resume eliquis in am if no bleeding today/tonight. (4) Hypertension, essential, benign: Status: Chronic Assessment and plan: Continue metoprolol with holding parameters. (5) Hypothyroidism: Status: Chronic Assessment and plan: Continue synthroid (6) Sleep apnea: Status: Chronic Assessment and plan: Continue home CPAP (7) Atrial fibrillation: Status: Chronic Assessment and plan: Rate controlled. Continue beta jeanna with holding parameters. Hold anticoagulation as above (8) Discharge planning issues: Status: Acute Assessment and plan: Full code (9) DVT prophylaxis: Status: Acute Assessment and plan: TEDs + SCD's Chemical DVT ppx is contraindicated in setting of acute bleeding. Subjective Subjective Interval history since last seen: Ms Vinson states she has not had any bleeding since sometime during the day yesterday. She specifically denies abdominal pain, clots in her stool, and has been able to tolerate clear liquids. Denies dizziness, chest pain, shortness of breath, nausea, vomiting. Seen by general surgery - no plans for colonoscopy on this admission as she had one done relatively recently. Exam Narrative Exam Narrative: General: very pleasant middle-aged female, seeing while dry shampooing her hair, ambulating around the room, A&Ox3, NAD HEENT: EOMI, MMM Heart: irregularly irregular rhythm, no m/r/g Lungs: CTB GI: abdomen is soft, nontender, nondistended Extremities: Trace edema BLE's, no c/c BLE's, trace pedal pulses B Objective Objective Clinical Data: Abnormal lab results 02/12/19 02/13/19 02/13/19 Range/Units 17:55 00:45 07:01 RBC (4.00-5.20) m/cumm Hgb 10.3 L 9.8 L (12.0-15.5) g/dL Hct 31.9 L 29.5 L (36.0-46.0) % Chloride 109 H (98-107) mmol/L Calcium 8.1 L (8.5-10.1) mg/dL 02/13/19 Range/Units 07:01 RBC 3.43 L (4.00-5.20) m/cumm Hgb 9.9 L (12.0-15.5) g/dL Hct 30.5 L (36.0-46.0) % Chloride (98-107) mmol/L Calcium (8.5-10.1) mg/dL Vital Signs Temperature 36.4 C L 02/13/19 07:20 Temperature Source Tympanic 02/13/19 07:20 Pulse 113 H 02/13/19 08:42 Pulse Rhythm Irregular 02/13/19 08:35 Respiratory Rate 17 02/13/19 07:20 Respiratory Effort Non-Labored 02/13/19 08:35 Respiratory Depth Normal 02/13/19 08:35 Respiratory Pattern Normal 02/13/19 08:35 Blood Pressure 159/81 H 02/13/19 07:20 Blood Pressure Position Sitting 02/11/19 18:00 Pulse Oximetry 99 02/13/19 07:20 Oxygen Delivery Method Room Air 02/13/19 07:20 Oxygen Flow Rate 0 02/13/19 07:38 Pain Level 0 02/13/19 07:20 Comment 02/13/19 07:20 Intake & Output 02/12/19 02/12/19 02/13/19 11:59 23:59 10:59 Intake Total 966.667 / 2216.667 1250 / 2216.667 Balance 966.667 / 2216.667 1250 / 2216.667 Intake: IV 6. / 2015.667 0 / 667 Oral 200 / 200 Other: Urine Color Yellow Pale Yellow Urine Appearance Clear Clear Clear Urine Odor Normal Normal Comment voids in toilet. Ritesh blood when wiping voids in toilet. Flushed. Urine not assessed at this time. Stool Size Small Stool Characteristics Soft Bloody Voiding Methods Toilet Toilet Toilet Laboratory Results WBC 6.26 k/cumm (4.4-10.8) 02/13/19 07:01 RBC 3.43 m/cumm (4.00-5.20) L 02/13/19 07:01 Hgb 9.9 g/dL (12.0-15.5) L 02/13/19 07:01 Hct 30.5 % (36.0-46.0) L 02/13/19 07:01 MCV 88.9 fL (80-95) 02/13/19 07:01 MCH 28.9 pg (27.0-33.0) 02/13/19 07:01 MCHC 32.5 g/dL (32.0-36.0) 02/13/19 07:01 RDW 13.2 % (11.7-14.6) 02/13/19 07:01 Plt Count 270 x1000/uL (130-400) 02/13/19 07:01 MPV 8.4 fL (8.0-11.0) 02/13/19 07:01 Immature Gran % 0.2 02/11/19 18:16 Neutrophils % 63.9 02/11/19 18:16 Lymphocytes % 22.7 02/11/19 18:16 Monocytes % 10.3 02/11/19 18:16 Eosinophils % 2.4 02/11/19 18:16 Basophils % 0.5 02/11/19 18:16 Absolute Neutrophils 5.50 k/cumm (1.2-6.7) 02/11/19 18:16 Absolute Lymphocytes 1.96 k/cumm (1.2-3.4) 02/11/19 18:16 Absolute Monocytes 0.89 k/cumm (0.11-0.7) H 02/11/19 18:16 Absolute Eosinophils 0.21 k/cumm (0.0-0.7) 02/11/19 18:16 Absolute Basophils 0.04 k/cumm (0.0-0.2) 02/11/19 18:16 PT 11.6 sec (9.3-11.0) H 02/11/19 18:16 INR 1.2 (0.9-1.1) H 02/11/19 18:16 APTT 29.1 sec (21.0-31.4) 02/11/19 18:16 Sodium 142 mmol/L (136-145) 02/13/19 07:01 Potassium 3.7 mmol/L (3.5-5.1) 02/13/19 07:01 Chloride 109 mmol/L (98-107) H 02/13/19 07:01 Carbon Dioxide 25.0 mmol/L (21.0-32.0) 02/13/19 07:01 Anion Gap 8.0 mmol/L (3-11) 02/13/19 07:01 BUN 12 mg/dL (7-18) 02/13/19 07:01 Creatinine 0.70 mg/dL (0.55-1.02) 02/13/19 07:01 Estimated GFR/1.73 m2 >= 60.00 (mL/min/1.73m2) 02/13/19 07:01 Glucose 86 mg/dL (70-100) 02/13/19 07:01 Calcium 8.1 mg/dL (8.5-10.1) L 02/13/19 07:01 Magnesium 2.1 mg/dL (1.8-2.4) 02/13/19 07:01 Total Bilirubin 0.4 mg/dL (0.2-1.0) 02/11/19 18:16 AST 18 U/L (15-37) 02/11/19 18:16 ALT 30 U/L (14-59) 02/11/19 18:16 Alkaline Phosphatase 90 U/L (46-116) 02/11/19 18:16 Total Protein 8.0 g/dL (6.4-8.2) 02/11/19 18:16 Albumin 3.5 g/dL (3.4-5.0) 02/11/19 18:16 Patient ABO/Rh O Negative 02/11/19 18:35 Antibody Screen Negative 02/11/19 18:35
--- NOTE | 2019-02-13 12:26 | CMPROGNOTE_ITS ---
- If Service Date Differs Date of service: 02/13/19 Time of Service: 12:26 Care Management Progress Note S/O: Adali was lying in bed when CM met with her. Her and daughter were in the room visiting. She was pleasant and engaged in conversation. Her daughter expressed concern to CM regarding her mother's care team communicating after she discharges. CM explained that follow up appointments will be made prior to discharge and that the doctors will communicate to ensure the best plan of care for her mother. Adali reported that the bleeding has stopped and she is hoping to go home soon. CM will continue to follow and support patient and family. A: Adali is a 63 year old female admitted to [facility] on 02/11/2019 with Lower GI bleed. P: Anticipate Adali will return home with no additional services when medically cleared. She will follow up with her PCP, as recommended. Her will drive her home via private vehicle. CM will continue to follow and support patient with discharge planning.
[2019-02-13] MEDS: Normal Saline Flush 10 ML SYR IVP (20:08)
[2019-02-13] MEDS: Atorvastatin 20 MG TAB PO (22:33)
[2019-02-14] VITALS (8 sets, daily range): BP systolic 120–144; BP diastolic 74–102; PULSE 78–95; RESP 14–17; TEMP 36.3–37.1; O2SAT 96–100
[2019-02-14] MEDS: Levothyroxine 50 MCG TAB PO (03:36)
[2019-02-14 07:27] LABS: HCT 31.2 % (36.0-46.0); Mean Corp. HGB Concentration 32.1 g/dL (32.0-36.0); Mean Corpuscular Hemoglobin 28.3 pg (27.0-33.0); Mean Corpuscular Volume 88.4 fL (80-95); Mean Platelet Volume 8.1 fL (8.0-11.0); Platelet Count 286 x1000/uL (130-400); RBC 3.53 m/cumm (4.00-5.20); RBC Distribution Width 13.1 % (11.7-14.6); White Blood Cell Count 6.54 k/cumm (4.4-10.8)
[2019-02-14 08:13] LABS: BUN 12 mg/dL (7-18); CREATININE 0.78 mg/dL (0.55-1.02); Calcium 8.7 mg/dL (8.5-10.1); Chloride 107 mmol/L (98-107); Glucose 96 mg/dL (70-100); Magnesium 1.9 mg/dL (1.8-2.4); Potassium 3.6 mmol/L (3.5-5.1); Sodium 143 mmol/L (136-145)
[2019-02-14] MEDS: Metoprolol 50 MG TAB PO ×2 (08:30→22:08)
--- NOTE | 2019-02-14 08:35 | W.PM.PROGNOT ---
Date of Service Date of service: 02/14/19 Time of Service: 08:00 Assessment and Plan Assessment and plan (1) Lower GI bleed: Status: Acute Assessment and plan: It sounds like she passed a small amount of old blood last night. There is not evidence of ongoing bleeding. HgB stable Agree with trial of resuming Eliquis Subjective Subjective Interval history since last seen: Patient reports small amount of blood with passing gas last night. Darker. No abdominal pain Tolerating PO Has not had BM yet Exam Narrative Exam Narrative: No acute distress Objective Objective Clinical Data: Abnormal lab results 02/14/19 Range/Units 07:00 RBC 3.53 L (4.00-5.20) m/cumm Hgb 10.0 L (12.0-15.5) g/dL Hct 31.2 L (36.0-46.0) % Vital Signs Temperature 98.2 F 02/14/19 07:23 Temperature Source Tympanic 02/14/19 07:23 Pulse 80 02/14/19 07:23 Pulse Rhythm Irregular 02/14/19 03:50 Respiratory Rate 16 02/14/19 07:23 Respiratory Effort Non-Labored 02/14/19 03:50 Respiratory Depth Normal 02/14/19 03:50 Respiratory Pattern Normal 02/14/19 03:50 Blood Pressure 144/102 H 02/14/19 07:23 Blood Pressure Position Sitting 02/11/19 18:00 Pulse Oximetry 99 02/14/19 07:23 Oxygen Delivery Method Room Air 02/14/19 07:23 Oxygen Flow Rate 0 02/14/19 07:23 Pain Level 0 02/14/19 07:23 Comment 02/14/19 00:11 Intake & Output 02/13/19 02/13/19 02/14/19 11:59 23:59 11:59 Intake Total 620 / 1740.667 Balance 620 / 1740.667 Intake: IV 920.667 Oral 610 / 820 Other: Urine Color Yellow Urine Appearance Clear Clear Urine Odor Normal Comment Patient voiding independently Stool Size Small Stool Characteristics Bloody Voiding Methods Toilet Laboratory Results WBC 6.54 k/cumm (4.4-10.8) 02/14/19 07:00 RBC 3.53 m/cumm (4.00-5.20) L 02/14/19 07:00 Hgb 10.0 g/dL (12.0-15.5) L 02/14/19 07:00 Hct 31.2 % (36.0-46.0) L 02/14/19 07:00 MCV 88.4 fL (80-95) 02/14/19 07:00 MCH 28.3 pg (27.0-33.0) 02/14/19 07:00 MCHC 32.1 g/dL (32.0-36.0) 02/14/19 07:00 RDW 13.1 % (11.7-14.6) 02/14/19 07:00 Plt Count 286 x1000/uL (130-400) 02/14/19 07:00 MPV 8.1 fL (8.0-11.0) 02/14/19 07:00 Immature Gran % 0.2 02/11/19 18:16 Neutrophils % 63.9 02/11/19 18:16 Lymphocytes % 22.7 02/11/19 18:16 Monocytes % 10.3 02/11/19 18:16 Eosinophils % 2.4 02/11/19 18:16 Basophils % 0.5 02/11/19 18:16 Absolute Neutrophils 5.50 k/cumm (1.2-6.7) 02/11/19 18:16 Absolute Lymphocytes 1.96 k/cumm (1.2-3.4) 02/11/19 18:16 Absolute Monocytes 0.89 k/cumm (0.11-0.7) H 02/11/19 18:16 Absolute Eosinophils 0.21 k/cumm (0.0-0.7) 02/11/19 18:16 Absolute Basophils 0.04 k/cumm (0.0-0.2) 02/11/19 18:16 PT 11.6 sec (9.3-11.0) H 02/11/19 18:16 INR 1.2 (0.9-1.1) H 02/11/19 18:16 APTT 29.1 sec (21.0-31.4) 02/11/19 18:16 Sodium 143 mmol/L (136-145) 02/14/19 07:00 Potassium 3.6 mmol/L (3.5-5.1) 02/14/19 07:00 Chloride 107 mmol/L (98-107) 02/14/19 07:00 Carbon Dioxide 28.0 mmol/L (21.0-32.0) 02/14/19 07:00 Anion Gap 8.0 mmol/L (3-11) 02/14/19 07:00 BUN 12 mg/dL (7-18) 02/14/19 07:00 Creatinine 0.78 mg/dL (0.55-1.02) 02/14/19 07:00 Estimated GFR/1.73 m2 >= 60.00 (mL/min/1.73m2) 02/14/19 07:00 Glucose 96 mg/dL (70-100) 02/14/19 07:00 Calcium 8.7 mg/dL (8.5-10.1) 02/14/19 07:00 Magnesium 1.9 mg/dL (1.8-2.4) 02/14/19 07:00 Total Bilirubin 0.4 mg/dL (0.2-1.0) 02/11/19 18:16 AST 18 U/L (15-37) 02/11/19 18:16 ALT 30 U/L (14-59) 02/11/19 18:16 Alkaline Phosphatase 90 U/L (46-116) 02/11/19 18:16 Total Protein 8.0 g/dL (6.4-8.2) 02/11/19 18:16 Albumin 3.5 g/dL (3.4-5.0) 02/11/19 18:16 Patient ABO/Rh O Negative 02/11/19 18:35 Antibody Screen Negative 02/11/19 18:35
--- NOTE | 2019-02-14 12:03 | PDOC.CMPRO ---
- If Service Date Differs Date of service: 02/14/19 Time of Service: 12:03 Care Management Progress Note S/O: Adali is sitting up in bed when CM meets with her. Her is present in the room. Adali is pleasant and easily engages in conversation. She reports that her and her two daughters look after her at home and she is looking forward to being discharged from the hospital. CM will continue to follow. A: Adali is a 63 year old female admitted to [facility] on 02/11/2019 with a lower GI bleed. P: Adali will be discharged home when medically cleared by provider. Anticipate no services needed at time of discharge. Her , Jose, will transport Adali home when ready. CM continues to follow.
--- NOTE | 2019-02-14 12:55 | W.PM.PROGNOT ---
Date of Service Date of service: 02/14/19 Time of Service: 12:55 Assessment and Plan Assessment and plan (1) Lower GI bleed: Status: Acute Assessment and plan: Bleeding episode yesterday could have been old blood vs rebleeding. No BM's since yesterday's episode. Discussed with Dr Barahona - we feel that it is a good idea to reinitiate blood thinners today and monitor for rebleeding overnight. Instead of going straight to eliquis, I would like to try lovenox which is more short acting. No plans for colonoscopy at this time unless bleeding recurs. Bleeding scan could also be considered if bleeding recurs. Continue to monitor H/H. Continue regular diet. Continue to watch on tele. (2) Anemia due to acute blood loss: Status: Acute Assessment and plan: As above - H/H stable; will not transfuse at this time. (3) H/O: CVA (cerebrovascular accident): Status: Acute Assessment and plan: Hold asa/eliquis for now. Continue statin. Trialing therapeutic lovenox today - if no bleeding, trial eliquis. (4) Hypertension, essential, benign: Status: Chronic Assessment and plan: Continue metoprolol with holding parameters. (5) Hypothyroidism: Status: Chronic Assessment and plan: Continue synthroid (6) Sleep apnea: Status: Chronic Assessment and plan: Continue home CPAP (7) Atrial fibrillation: Status: Chronic Assessment and plan: Rate controlled. Continue beta jeanna with holding parameters. Trialing lovenox today (8) Discharge planning issues: Status: Acute Assessment and plan: Full code (9) DVT prophylaxis: Status: Acute Assessment and plan: TEDs + SCD's Trialing therapeutic lovenox today prior to re-initiating eliquis to ensure no re-bleeding. Subjective Subjective Interval history since last seen: Ms Vinson had a bloody BM after yesterday's dinner. She had not had any more BM's since. Denies dizziness, chest pain, shortness of breath, palpitations, nausea, vomiting, abdominal pain. Exam Narrative Exam Narrative: General: very pleasant middle-aged female, laying comfortably in bed, A&Ox3 HEENT: EOMI, MMM Heart: irregularly irregular rhythm, no m/r/g Lungs: CTAB GI: abdomen is soft, nontender, nondistended Extremities: No edema BLE's, no c/c BLE's, trace pedal pulses B Objective Objective Clinical Data: Abnormal lab results 02/14/19 Range/Units 07:00 RBC 3.53 L (4.00-5.20) m/cumm Hgb 10.0 L (12.0-15.5) g/dL Hct 31.2 L (36.0-46.0) % Vital Signs Temperature 36.8 C 02/14/19 07:23 Temperature Source Tympanic 02/14/19 07:23 Pulse 80 02/14/19 07:23 Pulse Rhythm Irregular 02/14/19 03:50 Respiratory Rate 16 02/14/19 07:23 Respiratory Effort Non-Labored 02/14/19 03:50 Respiratory Depth Normal 02/14/19 03:50 Respiratory Pattern Normal 02/14/19 03:50 Blood Pressure 144/102 H 02/14/19 07:23 Blood Pressure Position Sitting 02/11/19 18:00 Pulse Oximetry 99 02/14/19 07:23 Oxygen Delivery Method Room Air 02/14/19 07:23 Oxygen Flow Rate 0 02/14/19 07:23 Fraction of Inspired Oxygen (FIO2) 21 02/14/19 09:59 Pain Level 0 02/14/19 07:23 Comment 02/14/19 00:11 Intake & Output 02/13/19 02/14/19 02/14/19 23:59 11:59 23:59 Intake Total 620 / 1740.667 Balance 620 / 1740.667 Intake: IV 0.667 Oral 610 / 820 Other: Urine Color Yellow Urine Appearance Clear Clear Urine Odor Normal Comment Patient voiding independently Stool Size Small Stool Characteristics Bloody Voiding Methods Toilet Laboratory Results WBC 6.54 k/cumm (4.4-10.8) 02/14/19 07:00 RBC 3.53 m/cumm (4.00-5.20) L 02/14/19 07:00 Hgb 10.0 g/dL (12.0-15.5) L 02/14/19 07:00 Hct 31.2 % (36.0-46.0) L 02/14/19 07:00 MCV 88.4 fL (80-95) 02/14/19 07:00 MCH 28.3 pg (27.0-33.0) 02/14/19 07:00 MCHC 32.1 g/dL (32.0-36.0) 02/14/19 07:00 RDW 13.1 % (11.7-14.6) 02/14/19 07:00 Plt Count 286 x1000/uL (130-400) 02/14/19 07:00 MPV 8.1 fL (8.0-11.0) 02/14/19 07:00 Immature Gran % 0.2 02/11/19 18:16 Neutrophils % 63.9 02/11/19 18:16 Lymphocytes % 22.7 02/11/19 18:16 Monocytes % 10.3 02/11/19 18:16 Eosinophils % 2.4 02/11/19 18:16 Basophils % 0.5 02/11/19 18:16 Absolute Neutrophils 5.50 k/cumm (1.2-6.7) 02/11/19 18:16 Absolute Lymphocytes 1.96 k/cumm (1.2-3.4) 02/11/19 18:16 Absolute Monocytes 0.89 k/cumm (0.11-0.7) H 02/11/19 18:16 Absolute Eosinophils 0.21 k/cumm (0.0-0.7) 02/11/19 18:16 Absolute Basophils 0.04 k/cumm (0.0-0.2) 02/11/19 18:16 PT 11.6 sec (9.3-11.0) H 02/11/19 18:16 INR 1.2 (0.9-1.1) H 02/11/19 18:16 APTT 29.1 sec (21.0-31.4) 02/11/19 18:16 Sodium 143 mmol/L (136-145) 02/14/19 07:00 Potassium 3.6 mmol/L (3.5-5.1) 02/14/19 07:00 Chloride 107 mmol/L (98-107) 02/14/19 07:00 Carbon Dioxide 28.0 mmol/L (21.0-32.0) 02/14/19 07:00 Anion Gap 8.0 mmol/L (3-11) 02/14/19 07:00 BUN 12 mg/dL (7-18) 02/14/19 07:00 Creatinine 0.78 mg/dL (0.55-1.02) 02/14/19 07:00 Estimated GFR/1.73 m2 >= 60.00 (mL/min/1.73m2) 02/14/19 07:00 Glucose 96 mg/dL (70-100) 02/14/19 07:00 Calcium 8.7 mg/dL (8.5-10.1) 02/14/19 07:00 Magnesium 1.9 mg/dL (1.8-2.4) 02/14/19 07:00 Total Bilirubin 0.4 mg/dL (0.2-1.0) 02/11/19 18:16 AST 18 U/L (15-37) 02/11/19 18:16 ALT 30 U/L (14-59) 02/11/19 18:16 Alkaline Phosphatase 90 U/L (46-116) 02/11/19 18:16 Total Protein 8.0 g/dL (6.4-8.2) 02/11/19 18:16 Albumin 3.5 g/dL (3.4-5.0) 02/11/19 18:16 Patient ABO/Rh O Negative 02/11/19 18:35 Antibody Screen Negative 02/11/19 18:35
[2019-02-14] MEDS: Enoxaparin 100 MG/ML SYR 90 MG SC (14:13)
[2019-02-14] MEDS: Atorvastatin 20 MG TAB PO (22:08)
[2019-02-14] MEDS: Normal Saline Flush 10 ML SYR IVP (22:08)
[2019-02-15] VITALS (8 sets, daily range): BP systolic 122–131; BP diastolic 76–87; PULSE 83–103; RESP 16–18; TEMP 36.3–37.1; O2SAT 97–98
[2019-02-15] MEDS: Levothyroxine 50 MCG TAB PO (03:14)
[2019-02-15] MEDS: Enoxaparin 100 MG/ML SYR 90 MG SC (03:14)
--- NOTE | 2019-02-15 07:38 | W.PM.PROGNOT ---
Date of Service Date of service: 02/15/19 Time of Service: 07:38 Assessment and Plan Assessment and plan (1) Lower GI bleed: Status: Acute Assessment and plan: Clinically stable after resuming anticoagulation. Hgb pending If stable, can consider discharge Ducolax ordered Patient can contact me with any concerns. Subjective Subjective Interval history since last seen: No rectal bleeding Had not had BM yet No abdominal pain Tolerating PO Objective Objective Clinical Data: Vital Signs Temperature 97.3 F L 02/15/19 03:19 Temperature Source Tympanic 02/15/19 03:19 Pulse 84 02/15/19 03:19 Pulse Rhythm Irregular 02/14/19 22:21 Respiratory Rate 16 02/15/19 03:19 Respiratory Effort Non-Labored 02/14/19 22:21 Respiratory Depth Normal 02/14/19 22:21 Respiratory Pattern Normal 02/14/19 22:21 Blood Pressure 127/87 02/15/19 03:19 Blood Pressure Position Sitting 02/11/19 18:00 Pulse Oximetry 98 02/15/19 03:19 Oxygen Delivery Method Room Air 02/15/19 03:19 Oxygen Flow Rate 0 02/15/19 03:19 Fraction of Inspired Oxygen (FIO2) 21 02/14/19 09:59 Pain Level 0 02/15/19 03:19 Comment 02/14/19 00:11 Intake & Output 02/14/19 02/14/19 02/15/19 11:59 23:59 11:59 Intake Total 250 / 250 Balance 250 / 250 Intake: IV 10 Oral 240 / 240 Other: Urine Color Yellow Urine Appearance Clear Urine Odor Normal Comment Patient voiding independently voids independently in toilet. Voiding Methods Toilet Toilet Laboratory Results WBC 6.54 k/cumm (4.4-10.8) 02/14/19 07:00 RBC 3.53 m/cumm (4.00-5.20) L 02/14/19 07:00 Hgb 10.0 g/dL (12.0-15.5) L 02/14/19 07:00 Hct 31.2 % (36.0-46.0) L 02/14/19 07:00 MCV 88.4 fL (80-95) 02/14/19 07:00 MCH 28.3 pg (27.0-33.0) 02/14/19 07:00 MCHC 32.1 g/dL (32.0-36.0) 02/14/19 07:00 RDW 13.1 % (11.7-14.6) 02/14/19 07:00 Plt Count 286 x1000/uL (130-400) 02/14/19 07:00 MPV 8.1 fL (8.0-11.0) 02/14/19 07:00 Immature Gran % 0.2 02/11/19 18:16 Neutrophils % 63.9 02/11/19 18:16 Lymphocytes % 22.7 02/11/19 18:16 Monocytes % 10.3 02/11/19 18:16 Eosinophils % 2.4 02/11/19 18:16 Basophils % 0.5 02/11/19 18:16 Absolute Neutrophils 5.50 k/cumm (1.2-6.7) 02/11/19 18:16 Absolute Lymphocytes 1.96 k/cumm (1.2-3.4) 02/11/19 18:16 Absolute Monocytes 0.89 k/cumm (0.11-0.7) H 02/11/19 18:16 Absolute Eosinophils 0.21 k/cumm (0.0-0.7) 02/11/19 18:16 Absolute Basophils 0.04 k/cumm (0.0-0.2) 02/11/19 18:16 PT 11.6 sec (9.3-11.0) H 02/11/19 18:16 INR 1.2 (0.9-1.1) H 02/11/19 18:16 APTT 29.1 sec (21.0-31.4) 02/11/19 18:16 Sodium 143 mmol/L (136-145) 02/14/19 07:00 Potassium 3.6 mmol/L (3.5-5.1) 02/14/19 07:00 Chloride 107 mmol/L (98-107) 02/14/19 07:00 Carbon Dioxide 28.0 mmol/L (21.0-32.0) 02/14/19 07:00 Anion Gap 8.0 mmol/L (3-11) 02/14/19 07:00 BUN 12 mg/dL (7-18) 02/14/19 07:00 Creatinine 0.78 mg/dL (0.55-1.02) 02/14/19 07:00 Estimated GFR/1.73 m2 >= 60.00 (mL/min/1.73m2) 02/14/19 07:00 Glucose 96 mg/dL (70-100) 02/14/19 07:00 Calcium 8.7 mg/dL (8.5-10.1) 02/14/19 07:00 Magnesium 1.9 mg/dL (1.8-2.4) 02/14/19 07:00 Total Bilirubin 0.4 mg/dL (0.2-1.0) 02/11/19 18:16 AST 18 U/L (15-37) 02/11/19 18:16 ALT 30 U/L (14-59) 02/11/19 18:16 Alkaline Phosphatase 90 U/L (46-116) 02/11/19 18:16 Total Protein 8.0 g/dL (6.4-8.2) 02/11/19 18:16 Albumin 3.5 g/dL (3.4-5.0) 02/11/19 18:16 Patient ABO/Rh O Negative 02/11/19 18:35 Antibody Screen Negative 02/11/19 18:35
[2019-02-15 07:40] LABS: HCT 31.4 % (36.0-46.0); HGB 10.1 g/dL (12.0-15.5); Mean Corp. HGB Concentration 32.2 g/dL (32.0-36.0); Mean Corpuscular Hemoglobin 28.3 pg (27.0-33.0); Mean Platelet Volume 8.5 fL (8.0-11.0); Platelet Count 307 x1000/uL (130-400); RBC 3.57 m/cumm (4.00-5.20); RBC Distribution Width 13.4 % (11.7-14.6); White Blood Cell Count 6.68 k/cumm (4.4-10.8)
[2019-02-15 07:52] LABS: Anion Gap 11.9 mmol/L (3-11); BUN 14 mg/dL (7-18); CO2 24.1 mmol/L (21.0-32.0); CREATININE 0.78 mg/dL (0.55-1.02); Calcium 8.8 mg/dL (8.5-10.1); Chloride 107 mmol/L (98-107); Glucose 91 mg/dL (70-100); Potassium 3.4 mmol/L (3.5-5.1); Sodium 143 mmol/L (136-145)
[2019-02-15] MEDS: Metoprolol 50 MG TAB PO ×2 (07:57→20:34)
[2019-02-15] MEDS: Bisacodyl 5 MG TABEC PO (07:57)
[2019-02-15] MEDS: Potassium Chloride 20 MEQ TABCR 40 MEQ PO ×2 (08:50→15:55)
--- NOTE | 2019-02-15 14:54 | W.PM.PROGNOT ---
Date of Service Date of service: 02/15/19 Time of Service: 14:54 Assessment and Plan Assessment and plan (1) Lower GI bleed: Status: Acute Assessment and plan: Again, it is not clear if the blood today is remnants of old blood or new. Discussed with Dr Barahona - will hold anticoagulation until bleeding definitively resolves. No plans for colonoscopy at this time unless bleeding recurs. Bleeding scan unlikely to be helpful at this time because bleeding is slow, per Dr Barahona. Continue to monitor H/H. Continue regular diet. Continue to watch on tele. (2) Anemia due to acute blood loss: Status: Acute Assessment and plan: As above - H/H stable; will not transfuse at this time. (3) H/O: CVA (cerebrovascular accident): Status: Acute Assessment and plan: Hold asa/eliquis for now. Continue statin. D/c lovenox as bleeding possible recurred. (4) Hypertension, essential, benign: Status: Chronic Assessment and plan: Continue metoprolol with holding parameters. (5) Hypothyroidism: Status: Chronic Assessment and plan: Continue synthroid (6) Sleep apnea: Status: Chronic Assessment and plan: Continue home CPAP (7) Atrial fibrillation: Status: Chronic Assessment and plan: Rate controlled. Continue beta jeanna with holding parameters. Hold anticoagulation (8) Discharge planning issues: Status: Acute Assessment and plan: Full code (9) DVT prophylaxis: Status: Acute Assessment and plan: TEDs + SCD's Holding anticoagulation as above Subjective Subjective Interval history since last seen: Had maroon blood in her BM after breakfast today. Otherwise, denies dizziness, chest pain, shortness of breath, nausea, vomiting. Exam Narrative Exam Narrative: General: very pleasant middle-aged female, laying comfortably in bed, A&Ox3 HEENT: EOMI, MMM Heart: irregularly irregular rhythm, no m/r/g Lungs: CTAB GI: abdomen is soft, nontender, nondistended Extremities: No edema BLE's, no c/c BLE's, trace pedal pulses B Objective Objective Clinical Data: Abnormal lab results 02/15/19 02/15/19 Range/Units 07:15 07:15 RBC 3.57 L (4.00-5.20) m/cumm Hgb 10.1 L (12.0-15.5) g/dL Hct 31.4 L (36.0-46.0) % Potassium 3.4 L (3.5-5.1) mmol/L Anion Gap 11.9 H (3-11) mmol/L Vital Signs Temperature 36.5 C 02/15/19 08:59 Temperature Source Tympanic 02/15/19 08:59 Pulse 94 H 02/15/19 08:59 Pulse Rhythm Irregular 02/15/19 09:23 Respiratory Rate 17 02/15/19 08:59 Respiratory Effort Non-Labored 02/15/19 09:23 Respiratory Depth Normal 02/15/19 09:23 Respiratory Pattern Normal 02/15/19 09:23 Blood Pressure 131/87 02/15/19 08:59 Blood Pressure Position Sitting 02/11/19 18:00 Pulse Oximetry 97 02/15/19 08:59 Oxygen Delivery Method Room Air 02/15/19 08:59 Oxygen Flow Rate 0 02/15/19 08:59 Fraction of Inspired Oxygen (FIO2) 21 02/15/19 08:00 Pain Level 0 02/15/19 08:59 Comment 02/14/19 00:11 Intake & Output 02/14/19 02/15/19 02/15/19 23:59 11:59 23:59 Intake Total 250 / 250 Balance 250 / 250 Intake: IV Oral 240 / 240 Other: Comment voids independently in toilet. Stool Size Moderate Stool Characteristics Soft Bloody Voiding Methods Toilet Toilet Laboratory Results WBC 6.68 k/cumm (4.4-10.8) 02/15/19 07:15 RBC 3.57 m/cumm (4.00-5.20) L 02/15/19 07:15 Hgb 10.1 g/dL (12.0-15.5) L 02/15/19 07:15 Hct 31.4 % (36.0-46.0) L 02/15/19 07:15 MCV 88.0 fL (80-95) 02/15/19 07:15 MCH 28.3 pg (27.0-33.0) 02/15/19 07:15 MCHC 32.2 g/dL (32.0-36.0) 02/15/19 07:15 RDW 13.4 % (11.7-14.6) 02/15/19 07:15 Plt Count 307 x1000/uL (130-400) 02/15/19 07:15 MPV 8.5 fL (8.0-11.0) 02/15/19 07:15 Immature Gran % 0.2 02/11/19 18:16 Neutrophils % 63.9 02/11/19 18:16 Lymphocytes % 22.7 02/11/19 18:16 Monocytes % 10.3 02/11/19 18:16 Eosinophils % 2.4 02/11/19 18:16 Basophils % 0.5 02/11/19 18:16 Absolute Neutrophils 5.50 k/cumm (1.2-6.7) 02/11/19 18:16 Absolute Lymphocytes 1.96 k/cumm (1.2-3.4) 02/11/19 18:16 Absolute Monocytes 0.89 k/cumm (0.11-0.7) H 02/11/19 18:16 Absolute Eosinophils 0.21 k/cumm (0.0-0.7) 02/11/19 18:16 Absolute Basophils 0.04 k/cumm (0.0-0.2) 02/11/19 18:16 PT 11.6 sec (9.3-11.0) H 02/11/19 18:16 INR 1.2 (0.9-1.1) H 02/11/19 18:16 APTT 29.1 sec (21.0-31.4) 02/11/19 18:16 Sodium 143 mmol/L (136-145) 02/15/19 07:15 Potassium 3.4 mmol/L (3.5-5.1) L 02/15/19 07:15 Chloride 107 mmol/L (98-107) 02/15/19 07:15 Carbon Dioxide 24.1 mmol/L (21.0-32.0) 02/15/19 07:15 Anion Gap 11.9 mmol/L (3-11) H 02/15/19 07:15 BUN 14 mg/dL (7-18) 02/15/19 07:15 Creatinine 0.78 mg/dL (0.55-1.02) 02/15/19 07:15 Estimated GFR/1.73 m2 >= 60.00 (mL/min/1.73m2) 02/15/19 07:15 Glucose 91 mg/dL (70-100) 02/15/19 07:15 Calcium 8.8 mg/dL (8.5-10.1) 02/15/19 07:15 Magnesium 2.0 mg/dL (1.8-2.4) 02/15/19 07:15 Total Bilirubin 0.4 mg/dL (0.2-1.0) 02/11/19 18:16 AST 18 U/L (15-37) 02/11/19 18:16 ALT 30 U/L (14-59) 02/11/19 18:16 Alkaline Phosphatase 90 U/L (46-116) 02/11/19 18:16 Total Protein 8.0 g/dL (6.4-8.2) 02/11/19 18:16 Albumin 3.5 g/dL (3.4-5.0) 02/11/19 18:16 Patient ABO/Rh O Negative 02/11/19 18:35 Antibody Screen Negative 02/11/19 18:35
--- NOTE | 2019-02-15 17:16 | CMPROGNOTE_ITS ---
- If Service Date Differs Date of service: 02/15/19 Time of Service: 17:16 Care Management Progress Note S/O: Adali was lying in bed when CM met with her. She was pleasant and engaged in conversation. She reported that she will be at [facility] for one more night, and her plan is to be discharged tomorrow. She identified that she has a very supportive family, and that her daughter would be with her tomorrow as her has an appointment in [place]. CM will continue to follow. A: Adali is a 63 year old female admitted to [facility] on 02/11/2019 with a lower GI bleed. P: Adali will be discharged home when medically cleared by provider. Anticipate no services needed at time of discharge. Her , Jose, will transport Adali home when ready. CM continues to follow.
[2019-02-15] MEDS: Atorvastatin 20 MG TAB PO (22:19)
[2019-02-16] VITALS (7 sets, daily range): BP systolic 128–160; BP diastolic 84–99; PULSE 81–109; RESP 16–19; TEMP 36.6–37; O2SAT 98–100
[2019-02-16] MEDS: Levothyroxine 50 MCG TAB PO (04:57)
[2019-02-16] MEDS: Metoprolol 50 MG TAB PO ×2 (08:54→20:57)
[2019-02-16] MEDS: Normal Saline Flush 10 ML SYR IVP (11:06)
[2019-02-16 11:53] LABS: HCT 34.2 % (36.0-46.0); Mean Corp. HGB Concentration 32.2 g/dL (32.0-36.0); Mean Corpuscular Hemoglobin 28.9 pg (27.0-33.0); Mean Corpuscular Volume 89.8 fL (80-95); Mean Platelet Volume 8.6 fL (8.0-11.0); Platelet Count 356 x1000/uL (130-400); RBC 3.81 m/cumm (4.00-5.20); RBC Distribution Width 13.7 % (11.7-14.6); White Blood Cell Count 9.14 k/cumm (4.4-10.8)
--- NOTE | 2019-02-16 16:26 | W.PM.PROGNOT ---
Date of Service Date of service: 02/16/19 Time of Service: 16:26 Assessment and Plan Assessment and plan (1) Lower GI bleed: Status: Acute Assessment and plan: H/H is better and no more BM's. Will trial heparin gtt overnight and monitor overnight prior to restarting of the eliquis. No plans for colonoscopy at this time unless bleeding recurs. Bleeding scan unlikely to be helpful at this time because bleeding is slow, per Dr Barahona. Continue to monitor H/H. Continue regular diet. Continue to watch on tele. (2) Anemia due to acute blood loss: Status: Acute Assessment and plan: As above - H/H stable; will not transfuse at this time. (3) H/O: CVA (cerebrovascular accident): Status: Acute Assessment and plan: Hold asa/eliquis for now. Continue statin. Heparin gtt for anticoagulation. (4) Hypertension, essential, benign: Status: Chronic Assessment and plan: Continue metoprolol with holding parameters. (5) Hypothyroidism: Status: Chronic Assessment and plan: Continue synthroid (6) Sleep apnea: Status: Chronic Assessment and plan: Continue home CPAP (7) Atrial fibrillation: Status: Chronic Assessment and plan: Rate controlled. Continue beta jeanna with holding parameters. Trial heparin gtt (8) Discharge planning issues: Status: Acute Assessment and plan: Full code (9) DVT prophylaxis: Status: Acute Assessment and plan: TEDs + SCD's Trial heparin gtt Subjective Subjective Interval history since last seen: Ms Vinson had not had any more bowel movements since the one bloody BM yesterday. Denies dizziness, chest pain, shortness of breath, nausea, vomiting. Agrees to try heparin gtt. Exam Narrative Exam Narrative: General: very pleasant middle-aged female, laying comfortably in bed, A&Ox3 HEENT: EOMI, MMM Heart: irregularly irregular rhythm, no m/r/g Lungs: CTAB GI: abdomen is soft, nontender, nondistended Extremities: No edema BLE's, no c/c BLE's, trace pedal pulses B Objective Objective Clinical Data: Abnormal lab results 02/16/19 Range/Units 11:41 RBC 3.81 L (4.00-5.20) m/cumm Hgb 11.0 L (12.0-15.5) g/dL Hct 34.2 L (36.0-46.0) % Vital Signs Temperature 36.7 C 02/16/19 15:21 Temperature Source Tympanic 02/16/19 15:21 Pulse 101 H 02/16/19 15:21 Pulse Rhythm Irregular 02/16/19 15:33 Respiratory Rate 16 02/16/19 15:21 Respiratory Effort 02/16/19 15:33 Respiratory Depth Normal 02/16/19 15:33 Respiratory Pattern Normal 02/16/19 15:33 Blood Pressure 128/84 02/16/19 15:21 Blood Pressure Position Sitting 02/11/19 18:00 Pulse Oximetry 98 02/16/19 15:21 Oxygen Delivery Method Room Air 02/16/19 15:21 Oxygen Flow Rate 0 02/16/19 15:21 Fraction of Inspired Oxygen (FIO2) 21 02/15/19 08:00 Pain Level 0 02/16/19 15:21 Comment 02/14/19 00:11 Intake & Output 02/15/19 02/16/19 02/16/19 23:59 11:59 23:59 Intake Total 240 / 240 480 / 730 250 / 730 Balance 240 / 240 480 / 730 250 / 730 Intake: IV 0 / 0 Oral 240 / 240 480 / 730 250 / 730 Other: Urine Appearance Clear Clear Voiding Methods Toilet Laboratory Results WBC 9.14 k/cumm (4.4-10.8) 02/16/19 11:41 RBC 3.81 m/cumm (4.00-5.20) L 02/16/19 11:41 Hgb 11.0 g/dL (12.0-15.5) L 02/16/19 11:41 Hct 34.2 % (36.0-46.0) L 02/16/19 11:41 MCV 89.8 fL (80-95) 02/16/19 11:41 MCH 28.9 pg (27.0-33.0) 02/16/19 11:41 MCHC 32.2 g/dL (32.0-36.0) 02/16/19 11:41 RDW 13.7 % (11.7-14.6) 02/16/19 11:41 Plt Count 356 x1000/uL (130-400) 02/16/19 11:41 MPV 8.6 fL (8.0-11.0) 02/16/19 11:41 Immature Gran % 0.2 02/11/19 18:16 Neutrophils % 63.9 02/11/19 18:16 Lymphocytes % 22.7 02/11/19 18:16 Monocytes % 10.3 02/11/19 18:16 Eosinophils % 2.4 02/11/19 18:16 Basophils % 0.5 02/11/19 18:16 Absolute Neutrophils 5.50 k/cumm (1.2-6.7) 02/11/19 18:16 Absolute Lymphocytes 1.96 k/cumm (1.2-3.4) 02/11/19 18:16 Absolute Monocytes 0.89 k/cumm (0.11-0.7) H 02/11/19 18:16 Absolute Eosinophils 0.21 k/cumm (0.0-0.7) 02/11/19 18:16 Absolute Basophils 0.04 k/cumm (0.0-0.2) 02/11/19 18:16 PT 11.6 sec (9.3-11.0) H 02/11/19 18:16 INR 1.2 (0.9-1.1) H 02/11/19 18:16 APTT 29.1 sec (21.0-31.4) 02/11/19 18:16 Sodium 143 mmol/L (136-145) 02/15/19 07:15 Potassium 3.4 mmol/L (3.5-5.1) L 02/15/19 07:15 Chloride 107 mmol/L (98-107) 02/15/19 07:15 Carbon Dioxide 24.1 mmol/L (21.0-32.0) 02/15/19 07:15 Anion Gap 11.9 mmol/L (3-11) H 02/15/19 07:15 BUN 14 mg/dL (7-18) 02/15/19 07:15 Creatinine 0.78 mg/dL (0.55-1.02) 02/15/19 07:15 Estimated GFR/1.73 m2 >= 60.00 (mL/min/1.73m2) 02/15/19 07:15 Glucose 91 mg/dL (70-100) 02/15/19 07:15 Calcium 8.8 mg/dL (8.5-10.1) 02/15/19 07:15 Magnesium 2.0 mg/dL (1.8-2.4) 02/15/19 07:15 Total Bilirubin 0.4 mg/dL (0.2-1.0) 02/11/19 18:16 AST 18 U/L (15-37) 02/11/19 18:16 ALT 30 U/L (14-59) 02/11/19 18:16 Alkaline Phosphatase 90 U/L (46-116) 02/11/19 18:16 Total Protein 8.0 g/dL (6.4-8.2) 02/11/19 18:16 Albumin 3.5 g/dL (3.4-5.0) 02/11/19 18:16 Patient ABO/Rh O Negative 02/11/19 18:35 Antibody Screen Negative 02/11/19 18:35
[2019-02-16 16:58] LABS: PTT Activated 25.2 sec (21.0-31.4)
--- NOTE | 2019-02-16 19:43 | PDOC.CMPRO ---
- If Service Date Differs Date of service: 02/16/19 Time of Service: 19:43 Care Management Progress Note S/O: Adali was sitting on her bed when CM met with her. Her and daughter were in the room visiting with her. Adali stated that she was hoping to speak with the MD soon about her disposition. She reported that she had not had a BM today, but that she had one yesterday which did have blood in it. CM will continue to follow. A: Adali is a 63 year old female admitted to [facility] on 02/11/2019 with a lower GI bleed. P: Adali will be discharged home when medically cleared by provider. Anticipate no services needed at time of discharge. Her , Jose, will transport Adali home when ready. CM continues to follow.
[2019-02-16] MEDS: Atorvastatin 20 MG TAB PO (20:57)
[2019-02-17] VITALS (9 sets, daily range): BP systolic 120–132; BP diastolic 74–80; PULSE 83–157; RESP 14–18; TEMP 36.5–37.1; O2SAT 97–98
[2019-02-17] MEDS: Levothyroxine 50 MCG TAB PO (04:03)
[2019-02-17 05:41] LABS: PTT Activated 64.4 sec (21.0-31.4)
[2019-02-17 07:24] LABS: HCT 32.3 % (36.0-46.0); HGB 10.3 g/dL (12.0-15.5); Mean Corp. HGB Concentration 31.9 g/dL (32.0-36.0); Mean Corpuscular Hemoglobin 28.7 pg (27.0-33.0); Mean Platelet Volume 8.5 fL (8.0-11.0); Platelet Count 339 x1000/uL (130-400); RBC 3.59 m/cumm (4.00-5.20); RBC Distribution Width 13.8 % (11.7-14.6); White Blood Cell Count 9.48 k/cumm (4.4-10.8)
--- NOTE | 2019-02-17 09:00 | W.PM.PROGNOT ---
Date of Service Date of service: 02/17/19 Time of Service: 09:00 Assessment and Plan Assessment and plan (1) Lower GI bleed: Status: Acute Assessment and plan: No bleeding for a day and a half Await BM, agree with adding stool softener Will follow. Subjective Subjective Interval history since last seen: Had blood mixed with stool Thursday, none since Has been started on a heparin drip No BM No pain Objective Objective Clinical Data: Abnormal lab results 02/16/19 02/16/19 02/17/19 Range/Units 11:41 22:40 05:18 RBC 3.81 L (4.00-5.20) m/cumm Hgb 11.0 L (12.0-15.5) g/dL Hct 34.2 L (36.0-46.0) % MCHC (32.0-36.0) g/dL APTT 39.0 H D 64.4 H D (21.0-31.4) sec 02/17/19 Range/Units 07:00 RBC 3.59 L (4.00-5.20) m/cumm Hgb 10.3 L (12.0-15.5) g/dL Hct 32.3 L (36.0-46.0) % MCHC 31.9 L (32.0-36.0) g/dL APTT (21.0-31.4) sec Vital Signs Temperature 97.7 F 02/17/19 07:40 Temperature Source Tympanic 02/17/19 07:40 Pulse 91 H 02/17/19 07:45 Pulse Rhythm Irregular 02/17/19 04:07 Respiratory Rate 14 02/17/19 07:40 Respiratory Effort 02/17/19 04:07 Respiratory Depth Normal 02/17/19 04:07 Respiratory Pattern Normal 02/17/19 04:07 Blood Pressure 132/79 02/17/19 07:40 Blood Pressure Position Sitting 02/11/19 18:00 Pulse Oximetry 97 02/17/19 07:40 Oxygen Delivery Method Room Air 02/17/19 07:40 Oxygen Flow Rate 0 02/17/19 07:40 Fraction of Inspired Oxygen (FIO2) 21 02/17/19 08:13 Pain Level 0 02/17/19 07:40 Comment 02/14/19 00:11 Intake & Output 02/16/19 02/16/19 02/17/19 11:59 23:59 11:59 Intake Total 480 / 1047.333 567.333 / 1047.333 75.708 / 75.708 Balance 480 / 1047.333 567.333 / 1047.333 75.708 / 75.708 Weight 193 lb 5.526 oz Intake: IV 0 / 77.333 77.333 / 77.333 75.708 / 75.708 Oral 480 / 970 490 / 970 Other: Urine Appearance Clear Clear Clear Voiding Methods Toilet Toilet Laboratory Results WBC 9.48 k/cumm (4.4-10.8) 02/17/19 07:00 RBC 3.59 m/cumm (4.00-5.20) L 02/17/19 07:00 Hgb 10.3 g/dL (12.0-15.5) L 02/17/19 07:00 Hct 32.3 % (36.0-46.0) L 02/17/19 07:00 MCV 90.0 fL (80-95) 02/17/19 07:00 MCH 28.7 pg (27.0-33.0) 02/17/19 07:00 MCHC 31.9 g/dL (32.0-36.0) L 02/17/19 07:00 RDW 13.8 % (11.7-14.6) 02/17/19 07:00 Plt Count 339 x1000/uL (130-400) 02/17/19 07:00 MPV 8.5 fL (8.0-11.0) 02/17/19 07:00 Immature Gran % 0.2 02/11/19 18:16 Neutrophils % 63.9 02/11/19 18:16 Lymphocytes % 22.7 02/11/19 18:16 Monocytes % 10.3 02/11/19 18:16 Eosinophils % 2.4 02/11/19 18:16 Basophils % 0.5 02/11/19 18:16 Absolute Neutrophils 5.50 k/cumm (1.2-6.7) 02/11/19 18:16 Absolute Lymphocytes 1.96 k/cumm (1.2-3.4) 02/11/19 18:16 Absolute Monocytes 0.89 k/cumm (0.11-0.7) H 02/11/19 18:16 Absolute Eosinophils 0.21 k/cumm (0.0-0.7) 02/11/19 18:16 Absolute Basophils 0.04 k/cumm (0.0-0.2) 02/11/19 18:16 PT 11.6 sec (9.3-11.0) H 02/11/19 18:16 INR 1.2 (0.9-1.1) H 02/11/19 18:16 APTT 64.4 sec (21.0-31.4) H D 02/17/19 05:18 Sodium 143 mmol/L (136-145) 02/15/19 07:15 Potassium 3.4 mmol/L (3.5-5.1) L 02/15/19 07:15 Chloride 107 mmol/L (98-107) 02/15/19 07:15 Carbon Dioxide 24.1 mmol/L (21.0-32.0) 02/15/19 07:15 Anion Gap 11.9 mmol/L (3-11) H 02/15/19 07:15 BUN 14 mg/dL (7-18) 02/15/19 07:15 Creatinine 0.78 mg/dL (0.55-1.02) 02/15/19 07:15 Estimated GFR/1.73 m2 >= 60.00 (mL/min/1.73m2) 02/15/19 07:15 Glucose 91 mg/dL (70-100) 02/15/19 07:15 Calcium 8.8 mg/dL (8.5-10.1) 02/15/19 07:15 Magnesium 2.0 mg/dL (1.8-2.4) 02/15/19 07:15 Total Bilirubin 0.4 mg/dL (0.2-1.0) 02/11/19 18:16 AST 18 U/L (15-37) 02/11/19 18:16 ALT 30 U/L (14-59) 02/11/19 18:16 Alkaline Phosphatase 90 U/L (46-116) 02/11/19 18:16 Total Protein 8.0 g/dL (6.4-8.2) 02/11/19 18:16 Albumin 3.5 g/dL (3.4-5.0) 02/11/19 18:16 Patient ABO/Rh O Negative 02/11/19 18:35 Antibody Screen Negative 02/11/19 18:35
[2019-02-17] MEDS: Metoprolol 50 MG TAB PO ×2 (09:17→20:08)
[2019-02-17] MEDS: Docusate Sodium 100 MG CAP PO ×2 (11:18→20:08)
--- NOTE | 2019-02-17 16:43 | CMPROGNOTE_ITS ---
- If Service Date Differs Date of service: 02/17/19 Time of Service: 16:44 Care Management Progress Note S/O: Adali was sitting up in her bed when CM met with her. She reported that she is waiting on a BM in order to determine if she is still bleeding. She stated that otherwise she is feeling good, with no discomfort or pain. She is pleasant and engaged in conversation, and is anxious to go home. CM will continue to follow. A: Adali is a 63 year old female admitted to [facility] on 02/11/2019 with a lower GI bleed. P: Adali will be discharged home when medically cleared by provider. Anticipate no services needed at time of discharge. Her , Jose, will transport Adali home when ready. CM continues to follow.
--- NOTE | 2019-02-17 18:52 | W.PM.PROGNOT ---
Date of Service Date of service: 02/17/19 Time of Service: 16:00 Assessment and Plan Assessment and plan (1) Lower GI bleed: Status: Acute Assessment and plan: Recurred on heparin gtt - d/c'ed. Planned for colonoscopy tomorrow. (2) Anemia due to acute blood loss: Status: Acute Assessment and plan: As above - H/H stable; will not transfuse at this time. (3) H/O: CVA (cerebrovascular accident): Status: Acute Assessment and plan: Hold asa/anticoagulation for now. Continue statin. (4) Hypertension, essential, benign: Status: Chronic Assessment and plan: Continue metoprolol with holding parameters. (5) Hypothyroidism: Status: Chronic Assessment and plan: Continue synthroid (6) Sleep apnea: Status: Chronic Assessment and plan: Continue home CPAP (7) Atrial fibrillation: Status: Chronic Assessment and plan: Rate controlled. Continue beta jeanna with holding parameters. Holding anticoagulation due to bleeding. (8) Discharge planning issues: Status: Acute Assessment and plan: Full code (9) DVT prophylaxis: Status: Acute Assessment and plan: TEDs + SCD's Chemical anticoagulation/dvt ppx is d/c'ed due to recurrent GI bleeding. Subjective Subjective Interval history since last seen: s/p bloody bowel movement today - painless; no dizziness, chest pain, shortness of breath, nausea. Planned for colonoscopy tomorrow. Exam Narrative Exam Narrative: General: very pleasant middle-aged female, laying comfortably in bed, A&Ox3 HEENT: EOMI, MMM Heart: irregularly irregular rhythm, no m/r/g Lungs: CTAB GI: abdomen is soft, nontender, nondistended Extremities: No edema BLE's, no c/c BLE's, trace pedal pulses B Objective Objective Clinical Data: Abnormal lab results 02/16/19 02/17/19 02/17/19 Range/Units 22:40 05:18 07:00 RBC 3.59 L (4.00-5.20) m/cumm Hgb 10.3 L (12.0-15.5) g/dL Hct 32.3 L (36.0-46.0) % MCHC 31.9 L (32.0-36.0) g/dL APTT 39.0 H D 64.4 H D (21.0-31.4) sec Vital Signs Temperature 37.1 C 02/17/19 16:03 Temperature Source Tympanic 02/17/19 16:03 Pulse 94 H 02/17/19 16:03 Pulse Rhythm Irregular 02/17/19 09:00 Respiratory Rate 18 02/17/19 16:03 Respiratory Effort Non-Labored 02/17/19 09:00 Respiratory Depth Normal 02/17/19 09:00 Respiratory Pattern Normal 02/17/19 09:00 Blood Pressure 120/74 02/17/19 16:03 Blood Pressure Position Sitting 02/11/19 18:00 Pulse Oximetry 98 02/17/19 16:03 Oxygen Delivery Method Room Air 02/17/19 16:03 Oxygen Flow Rate 0 02/17/19 16:03 Fraction of Inspired Oxygen (FIO2) 21 02/17/19 08:13 Pain Level 0 02/17/19 16:03 Comment 02/14/19 00:11 Intake & Output 02/16/19 02/17/19 02/17/19 23:59 11:59 23:59 Intake Total 567.333 / 1047.333 137.041 / 172.691 35.65 / 172.691 Balance 567.333 / 1047.333 137.041 / 172.691 35.65 / 172.691 Weight 87.7 kg Intake: IV 77.333 / 77.333 137.041 / 172.691 35.65 / 172.691 Oral 490 / 970 Other: Urine Appearance Clear Clear Voiding Methods Toilet Toilet Laboratory Results WBC 9.48 k/cumm (4.4-10.8) 02/17/19 07:00 RBC 3.59 m/cumm (4.00-5.20) L 02/17/19 07:00 Hgb 10.3 g/dL (12.0-15.5) L 02/17/19 07:00 Hct 32.3 % (36.0-46.0) L 02/17/19 07:00 MCV 90.0 fL (80-95) 02/17/19 07:00 MCH 28.7 pg (27.0-33.0) 02/17/19 07:00 MCHC 31.9 g/dL (32.0-36.0) L 02/17/19 07:00 RDW 13.8 % (11.7-14.6) 02/17/19 07:00 Plt Count 339 x1000/uL (130-400) 02/17/19 07:00 MPV 8.5 fL (8.0-11.0) 02/17/19 07:00 Immature Gran % 0.2 02/11/19 18:16 Neutrophils % 63.9 02/11/19 18:16 Lymphocytes % 22.7 02/11/19 18:16 Monocytes % 10.3 02/11/19 18:16 Eosinophils % 2.4 02/11/19 18:16 Basophils % 0.5 02/11/19 18:16 Absolute Neutrophils 5.50 k/cumm (1.2-6.7) 02/11/19 18:16 Absolute Lymphocytes 1.96 k/cumm (1.2-3.4) 02/11/19 18:16 Absolute Monocytes 0.89 k/cumm (0.11-0.7) H 02/11/19 18:16 Absolute Eosinophils 0.21 k/cumm (0.0-0.7) 02/11/19 18:16 Absolute Basophils 0.04 k/cumm (0.0-0.2) 02/11/19 18:16 PT 11.6 sec (9.3-11.0) H 02/11/19 18:16 INR 1.2 (0.9-1.1) H 02/11/19 18:16 APTT 64.4 sec (21.0-31.4) H D 02/17/19 05:18 Sodium 143 mmol/L (136-145) 02/15/19 07:15 Potassium 3.4 mmol/L (3.5-5.1) L 02/15/19 07:15 Chloride 107 mmol/L (98-107) 02/15/19 07:15 Carbon Dioxide 24.1 mmol/L (21.0-32.0) 02/15/19 07:15 Anion Gap 11.9 mmol/L (3-11) H 02/15/19 07:15 BUN 14 mg/dL (7-18) 02/15/19 07:15 Creatinine 0.78 mg/dL (0.55-1.02) 02/15/19 07:15 Estimated GFR/1.73 m2 >= 60.00 (mL/min/1.73m2) 02/15/19 07:15 Glucose 91 mg/dL (70-100) 02/15/19 07:15 Calcium 8.8 mg/dL (8.5-10.1) 02/15/19 07:15 Magnesium 2.0 mg/dL (1.8-2.4) 02/15/19 07:15 Total Bilirubin 0.4 mg/dL (0.2-1.0) 02/11/19 18:16 AST 18 U/L (15-37) 02/11/19 18:16 ALT 30 U/L (14-59) 02/11/19 18:16 Alkaline Phosphatase 90 U/L (46-116) 02/11/19 18:16 Total Protein 8.0 g/dL (6.4-8.2) 02/11/19 18:16 Albumin 3.5 g/dL (3.4-5.0) 02/11/19 18:16 Patient ABO/Rh O Negative 02/11/19 18:35 Antibody Screen Negative 02/11/19 18:35
[2019-02-17] MEDS: Polyethylene Glycol 3350 238 GM BTL PO (20:07)
[2019-02-17] MEDS: Atorvastatin 20 MG TAB PO (21:16)
[2019-02-18] VITALS (11 sets, daily range): BP systolic 123–142; BP diastolic 82–97; PULSE 83–98; RESP 17–20; TEMP 36.5–37; O2SAT 90–100
[2019-02-18] MEDS: Levothyroxine 50 MCG TAB PO (04:05)
[2019-02-18 06:06] LABS: PTT Activated 25.4 sec (21.0-31.4)
[2019-02-18] MEDS: Metoprolol 50 MG TAB PO ×2 (08:36→19:48)
[2019-02-18] MEDS: Normal Saline Flush 10 ML SYR IVP ×3 (08:37→17:46)
[2019-02-18 10:45] LABS: Abs Immature Grans 0.04 k/cumm (0.0-0.09); Absolute Basophil Count 0.03 k/cumm (0.0-0.2); Absolute Eosinophil Count 0.16 k/cumm (0.0-0.7); Absolute Lymphocyte Count 1.27 k/cumm (1.2-3.4); Absolute Monocyte Count 0.62 k/cumm (0.11-0.7); Absolute Neutrophil Count 7.29 k/cumm (1.2-6.7); Basophils % 0.3; Eosinophils % 1.7; HCT 33.7 % (36.0-46.0); HGB 10.8 g/dL (12.0-15.5); Immature Grans % 0.4; Lymphocytes % 13.5; Mean Corpuscular Hemoglobin 28.7 pg (27.0-33.0); Mean Corpuscular Volume 89.6 fL (80-95); Mean Platelet Volume 8.6 fL (8.0-11.0); Monocytes % 6.6; Neutrophils % 77.5; Platelet Count 346 x1000/uL (130-400); RBC 3.76 m/cumm (4.00-5.20); RBC Distribution Width 13.9 % (11.7-14.6); White Blood Cell Count 9.41 k/cumm (4.4-10.8)
[2019-02-18 11:03] LABS: INR 1.1 (0.9-1.1); PTT Activated 24.6 sec (21.0-31.4); Prothrombin Time 11.1 sec (9.3-11.0)
[2019-02-18 11:13] LABS: Anion Gap 13.1 mmol/L (3-11); BUN 12 mg/dL (7-18); CO2 22.9 mmol/L (21.0-32.0); CREATININE 0.81 mg/dL (0.55-1.02); Calcium 9.2 mg/dL (8.5-10.1); Chloride 106 mmol/L (98-107); Glucose 101 mg/dL (70-100); Magnesium 2.1 mg/dL (1.8-2.4); Potassium 3.7 mmol/L (3.5-5.1); Sodium 142 mmol/L (136-145)
--- NOTE | 2019-02-18 13:35 | W.PM.PROGNOT ---
Date of Service Date of service: 02/18/19 Time of Service: 13:35 Assessment and Plan Assessment and plan (1) Lower GI bleed: Status: Acute Assessment and plan: I advised colonoscopy. The procedure was described including the risks of perforation with need for surgery or bleeding. She understands that I may not identify the source of bleeding or be able to do any intervention. Patient agrees to proceed. Subjective Subjective Interval history since last seen: Patient had bloody BM yesterday afternoon. No significant bleeding with prep after stopping the heparin. Exam Narrative Exam Narrative: Alert Lungs CTA Heart RRR Abdomen soft, nontender Objective Objective Clinical Data: Abnormal lab results 02/18/19 02/18/19 02/18/19 Range/Units 10:35 10:35 10:35 RBC 3.76 L (4.00-5.20) m/cumm Hgb 10.8 L (12.0-15.5) g/dL Hct 33.7 L (36.0-46.0) % Absolute Neutrophils 7.29 H (1.2-6.7) k/cumm PT 11.1 H (9.3-11.0) sec Anion Gap 13.1 H (3-11) mmol/L Glucose 101 H (70-100) mg/dL Vital Signs Temperature 98.1 F 02/18/19 12:10 Temperature Source Skin 02/18/19 12:10 Pulse 98 H 02/18/19 12:10 Pulse Rhythm Irregular 02/18/19 08:30 Respiratory Rate 20 02/18/19 12:10 Respiratory Effort Non-Labored 02/18/19 08:30 Respiratory Depth Normal 02/18/19 08:30 Respiratory Pattern Normal 02/18/19 08:30 Blood Pressure 141/87 H 02/18/19 12:10 Blood Pressure Position Sitting 02/11/19 18:00 Pulse Oximetry 100 02/18/19 12:10 Oxygen Delivery Method Room Air 02/18/19 12:10 Oxygen Flow Rate 0 02/18/19 12:10 Fraction of Inspired Oxygen (FIO2) 21 02/17/19 08:13 Pain Level 0 02/18/19 12:10 Comment 02/18/19 03:50 Intake & Output 02/17/19 02/18/19 02/18/19 23:59 11:59 23:59 Intake Total 1235.65 / 9479.821 5218 / 2020 Output Total 600 / 600 Balance 1235.65 / 8113.104 5320 / 1420 Intake: IV 35.65 / 172.691 Oral 1200 / 1200 1999 Output: Stool 600 / 600 Other: Urine Color Yellow Urine Appearance Clear Urine Odor None Comment voids in toilet pt voiding in the toilet independently Stool Occult Blood Positive Positive Stool Size Moderate Moderate Stool Characteristics Liquid Liquid Brown Green Voiding Methods Toilet Toilet Laboratory Results WBC 9.41 k/cumm (4.4-10.8) 02/18/19 10:35 RBC 3.76 m/cumm (4.00-5.20) L 02/18/19 10:35 Hgb 10.8 g/dL (12.0-15.5) L 02/18/19 10:35 Hct 33.7 % (36.0-46.0) L 02/18/19 10:35 MCV 89.6 fL (80-95) 02/18/19 10:35 MCH 28.7 pg (27.0-33.0) 02/18/19 10:35 MCHC 32.0 g/dL (32.0-36.0) 02/18/19 10:35 RDW 13.9 % (11.7-14.6) 02/18/19 10:35 Plt Count 346 x1000/uL (130-400) 02/18/19 10:35 MPV 8.6 fL (8.0-11.0) 02/18/19 10:35 Immature Gran % 0.4 02/18/19 10:35 Neutrophils % 77.5 02/18/19 10:35 Lymphocytes % 13.5 02/18/19 10:35 Monocytes % 6.6 02/18/19 10:35 Eosinophils % 1.7 02/18/19 10:35 Basophils % 0.3 02/18/19 10:35 Absolute Neutrophils 7.29 k/cumm (1.2-6.7) H 02/18/19 10:35 Absolute Lymphocytes 1.27 k/cumm (1.2-3.4) 02/18/19 10:35 Absolute Monocytes 0.62 k/cumm (0.11-0.7) 02/18/19 10:35 Absolute Eosinophils 0.16 k/cumm (0.0-0.7) 02/18/19 10:35 Absolute Basophils 0.03 k/cumm (0.0-0.2) 02/18/19 10:35 PT 11.1 sec (9.3-11.0) H 02/18/19 10:35 INR 1.1 (0.9-1.1) 02/18/19 10:35 APTT 24.6 sec (21.0-31.4) 02/18/19 10:35 Sodium 142 mmol/L (136-145) 02/18/19 10:35 Potassium 3.7 mmol/L (3.5-5.1) 02/18/19 10:35 Chloride 106 mmol/L (98-107) 02/18/19 10:35 Carbon Dioxide 22.9 mmol/L (21.0-32.0) 02/18/19 10:35 Anion Gap 13.1 mmol/L (3-11) H 02/18/19 10:35 BUN 12 mg/dL (7-18) 02/18/19 10:35 Creatinine 0.81 mg/dL (0.55-1.02) 02/18/19 10:35 Estimated GFR/1.73 m2 >= 60.00 (mL/min/1.73m2) 02/18/19 10:35 Glucose 101 mg/dL (70-100) H 02/18/19 10:35 Calcium 9.2 mg/dL (8.5-10.1) 02/18/19 10:35 Magnesium 2.1 mg/dL (1.8-2.4) 02/18/19 10:35 Total Bilirubin 0.4 mg/dL (0.2-1.0) 02/11/19 18:16 AST 18 U/L (15-37) 02/11/19 18:16 ALT 30 U/L (14-59) 02/11/19 18:16 Alkaline Phosphatase 90 U/L (46-116) 02/11/19 18:16 Total Protein 8.0 g/dL (6.4-8.2) 02/11/19 18:16 Albumin 3.5 g/dL (3.4-5.0) 02/11/19 18:16 Patient ABO/Rh O Negative 02/11/19 18:35 Antibody Screen Negative 02/11/19 18:35
--- NOTE | 2019-02-18 15:14 | CHAPLAIN ---
Adali is a member of the [employer] and [employer] Moe visited with her today.
--- NOTE | 2019-02-18 16:14 | COLE_ITS ---
DATE OF PROCEDURE: February 18, 2019 PREOPERATIVE DIAGNOSIS: Lower GI bleed. POSTOPERATIVE DIAGNOSIS: Lucia diverticulosis. PROCEDURE: Colonoscopy. SURGEON: Annabelle Barahona M.D. ANESTHESIA: General. INDICATIONS: This is a 63-year-old woman admitted almost a week ago with lower GI bleeding. The pat ient is anticoagulated following a recent stroke. She will have a bloody bowel movement about every other day after resuming her anticoagulation. Her hemoglobin has remained stable in the 10 range. PROCEDURE: She was placed in the left Magallon position. Propofol was titrated to sedation. Digital re ctal examination revealed no abnormalities. The scope was advanced to the cecum without difficulty. The ileocecal valve and appendiceal orifice were clearly identified. Her prep was excellent. There was no old blood within the colon or evidence of active bleeding. The scope was slowly withdrawn wi th lucia diverticulosis noted throughout the colon, although most prominent in the sigmoid region. The re was again no guidance as to where the bleeding had arisen. There were no clots, no visible vessel s and again no active bleeding. The rectum was normal, including on retroflex view. She tolerated t he procedure well and was stable to recovery. If the patient has further active bleeding, then local ization can be attempted with a tagged red blood cell scan or interventional radiology with possible embolization. Surgery would involve a subtotal colectomy and the less invasive measures would be adv ised first. The patient will not need a screening colonoscopy for ten years. cc: Avi Castillo N.P.
--- NOTE | 2019-02-18 17:24 | PDOC.CMPRO ---
- If Service Date Differs Date of service: 02/18/19 Time of Service: 17:24 Care Management Progress Note S/O: Adali was sitting up in bed when CM met with her. Her and daughter were in the room. She reported that she had a colonoscopy today and that she is waiting for another BM to see if there is any further bleeding. She stated that she is frustrated because she was hoping to be going home today. She is very pleasant and inquisitive. She asked CM about the process of referring her to a specialist at [facility] [place], and CM explained that the referral would be made by the discretion of the MD upon discharge. CM will continue to follow. A: Adali is a 63 year old female admitted to [facility] on 02/11/2019 with a lower GI bleed. P: Adali will be discharged home when medically cleared by provider. Anticipate no services needed at time of discharge. Her , Jose, will transport Adali home when ready. CM continues to follow.
--- NOTE | 2019-02-18 18:44 | PGE_ITS ---
Date of Service Date of service: 02/18/19 Time of Service: 16:00 Assessment and Plan Assessment and plan (1) Lower GI bleed: Status: Acute Assessment and plan: Did have recurrent bleeding during colonoscopy prep, but none since then. Colonoscopy only with diverticulosis and no bleeding. Discussed with Dr Barahona - resume heparin gtt; if rebleeds, transfer to a tertiary care facility for possible IR embolization. Consider provocative angiogram. If no rebleeding, transion to PO anticoagulation tomorrow, and send home on Thursday. Otherwise, I have sent referrals [place] [facility] [place] and [place], per patient request. (2) Anemia due to acute blood loss: Status: Acute Assessment and plan: As above - H/H stable; will not transfuse at this time. (3) H/O: CVA (cerebrovascular accident): Status: Acute Assessment and plan: Hold asa; re-trialing heparin gtt. Continue statin. (4) Hypertension, essential, benign: Status: Chronic Assessment and plan: Continue metoprolol with holding parameters. (5) Hypothyroidism: Status: Chronic Assessment and plan: Continue synthroid (6) Sleep apnea: Status: Chronic Assessment and plan: Continue home CPAP (7) Atrial fibrillation: Status: Chronic Assessment and plan: Rate controlled. Continue beta jeanna with holding parameters. Trialing heparin gtt. (8) Discharge planning issues: Status: Acute Assessment and plan: Full code (9) DVT prophylaxis: Status: Acute Assessment and plan: TEDs + SCD's Trialing heparin gtt Subjective Subjective Interval history since last seen: Ms Vinson is s/p colonoscopy today. It revealed diverticulosis, but no active bleeding. Per my discussion with Dr Barahona, if the patient rebleeds, ideally she would be transferred to a tertiary care facility with IR capabilities for possible embolization of a bleeding vessel. The patient also requested that I refer her for outpatient follow up [place] [facility] [place] - I have sent referrals to both GI and general surgery. Exam Narrative Exam Narrative: General: very pleasant middle-aged female, laying comfortably in bed, A&Ox3 HEENT: EOMI, MMM Heart: irregularly irregular rhythm, no m/r/g Lungs: CTAB GI: abdomen is soft, nontender, nondistended Extremities: No edema BLE's, no c/c BLE's, trace pedal pulses B Objective Objective Clinical Data: Abnormal lab results 02/18/19 02/18/19 02/18/19 Range/Units 10:35 10:35 10:35 RBC 3.76 L (4.00-5.20) m/cumm Hgb 10.8 L (12.0-15.5) g/dL Hct 33.7 L (36.0-46.0) % Absolute Neutrophils 7.29 H (1.2-6.7) k/cumm PT 11.1 H (9.3-11.0) sec Anion Gap 13.1 H (3-11) mmol/L Glucose 101 H (70-100) mg/dL Vital Signs Temperature 36.7 C 02/18/19 14:38 Temperature Source Temporal Artery Scan 02/18/19 14:38 Pulse 87 02/18/19 15:46 Pulse Rhythm Irregular 02/18/19 15:50 Respiratory Rate 17 02/18/19 14:38 Respiratory Effort Non-Labored 02/18/19 15:50 Respiratory Depth Normal 02/18/19 15:50 Respiratory Pattern Normal 02/18/19 15:50 Blood Pressure 142/97 H 02/18/19 14:38 Blood Pressure Position Sitting 02/11/19 18:00 Pulse Oximetry 98 02/18/19 14:38 Oxygen Delivery Method Room Air 02/18/19 14:38 Oxygen Flow Rate 0 02/18/19 14:38 Fraction of Inspired Oxygen (FIO2) 21 02/17/19 08:13 Pain Level 0 02/18/19 12:10 Comment 02/18/19 03:50 Intake & Output 02/17/19 02/18/19 02/18/19 23:59 11:59 23:59 Intake Total 1235.65 / 2419.247 [id number] Output Total 600 / 600 Balance 1235.65 / 8575.524 6038 / 1440 1439 Intake: IV 35.65 / 172.691 Oral 1200 / 1200 1999 Output: Stool 600 / 600 Other: Urine Color Yellow Urine Appearance Clear Clear Urine Odor None Comment voids in toilet pt voiding in the toilet independently Stool Occult Blood Positive Positive Stool Size Moderate Moderate Stool Characteristics Liquid Liquid Brown Green Voiding Methods Toilet Toilet Laboratory Results WBC 9.41 k/cumm (4.4-10.8) 02/18/19 10:35 RBC 3.76 m/cumm (4.00-5.20) L 02/18/19 10:35 Hgb 10.8 g/dL (12.0-15.5) L 02/18/19 10:35 Hct 33.7 % (36.0-46.0) L 02/18/19 10:35 MCV 89.6 fL (80-95) 02/18/19 10:35 MCH 28.7 pg (27.0-33.0) 02/18/19 10:35 MCHC 32.0 g/dL (32.0-36.0) 02/18/19 10:35 RDW 13.9 % (11.7-14.6) 02/18/19 10:35 Plt Count 346 x1000/uL (130-400) 02/18/19 10:35 MPV 8.6 fL (8.0-11.0) 02/18/19 10:35 Immature Gran % 0.4 02/18/19 10:35 Neutrophils % 77.5 02/18/19 10:35 Lymphocytes % 13.5 02/18/19 10:35 Monocytes % 6.6 02/18/19 10:35 Eosinophils % 1.7 02/18/19 10:35 Basophils % 0.3 02/18/19 10:35 Absolute Neutrophils 7.29 k/cumm (1.2-6.7) H 02/18/19 10:35 Absolute Lymphocytes 1.27 k/cumm (1.2-3.4) 02/18/19 10:35 Absolute Monocytes 0.62 k/cumm (0.11-0.7) 02/18/19 10:35 Absolute Eosinophils 0.16 k/cumm (0.0-0.7) 02/18/19 10:35 Absolute Basophils 0.03 k/cumm (0.0-0.2) 02/18/19 10:35 PT 11.1 sec (9.3-11.0) H 02/18/19 10:35 INR 1.1 (0.9-1.1) 02/18/19 10:35 APTT 24.6 sec (21.0-31.4) 02/18/19 10:35 Sodium 142 mmol/L (136-145) 02/18/19 10:35 Potassium 3.7 mmol/L (3.5-5.1) 02/18/19 10:35 Chloride 106 mmol/L (98-107) 02/18/19 10:35 Carbon Dioxide 22.9 mmol/L (21.0-32.0) 02/18/19 10:35 Anion Gap 13.1 mmol/L (3-11) H 02/18/19 10:35 BUN 12 mg/dL (7-18) 02/18/19 10:35 Creatinine 0.81 mg/dL (0.55-1.02) 02/18/19 10:35 Estimated GFR/1.73 m2 >= 60.00 (mL/min/1.73m2) 02/18/19 10:35 Glucose 101 mg/dL (70-100) H 02/18/19 10:35 Calcium 9.2 mg/dL (8.5-10.1) 02/18/19 10:35 Magnesium 2.1 mg/dL (1.8-2.4) 02/18/19 10:35 Total Bilirubin 0.4 mg/dL (0.2-1.0) 02/11/19 18:16 AST 18 U/L (15-37) 02/11/19 18:16 ALT 30 U/L (14-59) 02/11/19 18:16 Alkaline Phosphatase 90 U/L (46-116) 02/11/19 18:16 Total Protein 8.0 g/dL (6.4-8.2) 02/11/19 18:16 Albumin 3.5 g/dL (3.4-5.0) 02/11/19 18:16 Patient ABO/Rh O Negative 02/11/19 18:35 Antibody Screen Negative 02/11/19 18:35
[2019-02-18] MEDS: Docusate Sodium 100 MG CAP PO (19:48)
[2019-02-18] MEDS: Atorvastatin 20 MG TAB PO (22:29)
[2019-02-18 23:35] LABS: PTT Activated 40.2 sec (21.0-31.4)
[2019-02-19] VITALS (9 sets, daily range): BP systolic 113–134; BP diastolic 76–94; PULSE 78–124; RESP 17–20; TEMP 36.5–36.8; O2SAT 96–100
[2019-02-19] MEDS: Levothyroxine 50 MCG TAB PO (04:25)
[2019-02-19 05:57] LABS: PTT Activated 42.1 sec (21.0-31.4)
[2019-02-19 07:33] LABS: Abs Immature Grans 0.03 k/cumm (0.0-0.09); Absolute Basophil Count 0.02 k/cumm (0.0-0.2); Absolute Eosinophil Count 0.16 k/cumm (0.0-0.7); Absolute Lymphocyte Count 1.15 k/cumm (1.2-3.4); Absolute Monocyte Count 0.59 k/cumm (0.11-0.7); Absolute Neutrophil Count 6.86 k/cumm (1.2-6.7); Basophils % 0.2; Eosinophils % 1.8; HCT 32.7 % (36.0-46.0); HGB 10.4 g/dL (12.0-15.5); Immature Grans % 0.3; Lymphocytes % 13.1; Mean Corp. HGB Concentration 31.8 g/dL (32.0-36.0); Mean Corpuscular Hemoglobin 28.6 pg (27.0-33.0); Mean Corpuscular Volume 89.8 fL (80-95); Mean Platelet Volume 8.7 fL (8.0-11.0); Monocytes % 6.7; Neutrophils % 77.9; Platelet Count 333 x1000/uL (130-400); RBC 3.64 m/cumm (4.00-5.20); RBC Distribution Width 13.9 % (11.7-14.6); White Blood Cell Count 8.81 k/cumm (4.4-10.8)
[2019-02-19 07:40] LABS: Anion Gap 10.2 mmol/L (3-11); BUN 13 mg/dL (7-18); CO2 25.8 mmol/L (21.0-32.0); CREATININE 0.79 mg/dL (0.55-1.02); Calcium 8.9 mg/dL (8.5-10.1); Chloride 106 mmol/L (98-107); Glucose 97 mg/dL (70-100); Potassium 3.2 mmol/L (3.5-5.1); Sodium 142 mmol/L (136-145)
[2019-02-19] MEDS: Metoprolol 50 MG TAB PO ×2 (08:28→20:05)
[2019-02-19] MEDS: Docusate Sodium 100 MG CAP PO ×2 (08:28→20:05)
[2019-02-19] MEDS: Pantoprazole 40 MG VIAL IVP (09:53)
[2019-02-19] MEDS: Normal Saline Flush 10 ML SYR IVP (09:54)
[2019-02-19] MEDS: Potassium Chloride 20 MEQ TABCR 40 MEQ PO ×2 (11:02→18:12)
--- NOTE | 2019-02-19 16:59 | PDOC.CMPRO ---
Care Management Progress Note S/O: Adali was sitting up enjoying dinner with her . Diet was advanced today and she was very pleased with the meal. Stated she is having a really good day today. A: 63 y.o. female admitted for lower GI Bleed remains at an Acute level of care today. P: Adali will return home when medically cleared for discharge. No services needed at this time. , Jose, will transport by car.
--- NOTE | 2019-02-19 20:12 | PGE_ITS ---
Date of Service Date of service: 02/19/19 Time of Service: 20:12 Assessment and Plan Assessment and plan (1) Lower GI bleed: Status: Acute Assessment and plan: Very likely diverticular in nature, with no evidence of recurrence currently on anticoagulation. Colonoscopy results as previously reported. -Will plan on discontinuation of heparin gtt and reinitiation of apixaban this evening, with close monitoring of Hgb and symptoms overnight into tomorrow morning. The patient was also referred for outpatient follow-up with [facility] [place] and [place]. (2) H/O: CVA (cerebrovascular accident): Status: Acute Assessment and plan: Will need to resume daily antiplatelet therapy with aspirin as well as continuation of anticoagulation with apixaban. If anticoagulation is tolerated, plan will be for reinitiation of daily aspirin use in 2 to 3 days time. (3) Hypothyroidism: Status: Chronic Assessment and plan: Continue replacement therapy. (4) Hypertension, essential, benign: Status: Chronic Assessment and plan: Continue BB therapy. (5) Atrial fibrillation: Status: Chronic Assessment and plan: Appears rate controlled. Continue BB therapy, anticoagulation as above. (6) DVT prophylaxis: Status: Acute Assessment and plan: On active anticoagulation as above. Initiate PPI therapy for GI prophylaxis as well. Subjective Subjective Interval history since last seen: 63 year old woman with a prior history of AFib on AC, admitted from [facility] Emergency Department with a diagnosis of LGIB. Mrs. Vinson has a past Medical History significant for Afib on AC with Apixaban, HTN, Hypothyroidism, VALERIE on CPAP therapy, and Obesity. She was just admitted and treated last month at [facility] for acute CVA, manifested by a transiet right sided hemiparesis and dysarthria, that despite her history of Afib was deemed likely small vessel disease in etiology in the setting of a recent infection. Recommendations were made for addition of daily antiplatelet therapy in the form of aspirin to her anticoagulation. The patient had been doing well until onset of BRBPR that prompted evaluation in the ED. Work-up initially revealed a stable and essentially unchanged anemia, unremarkable CMP, and obvious gross blood per rectum. She also reported a prior history of GI Bleeding in the past that was attributed to diverticular bleeding. Following admission Mrs. Vinson has undergone repeat attempts at anticoagulation with Lovenox and heparin gtt due to her history of Afib, and with her recent CVA. However, she has continued to experienced bleeding with this. She underwent a colonoscopy on 02/18 that showed evidence of pandiverticulosis, without evidence of the source of the bleed. She was reinitiated on a heparin drip, with a hemoglobin that has remained stable, and with patient reporting no further bleeding episodes. No overnight events reported. She remains afebrile. Exam Narrative Exam Narrative: General: Patient appears comfortable, AAOX3, NAD Neck: Supple CV: Regular, nontachycardic, S1S2, No rubs, murmurs, or gallops. Pulmonary: Clear to auscultation bilaterally, no crackles, wheezing, or rhonchi Abdomen: + Bowel Sounds, soft, nontender, nondistended Vascular: No lower extremity edema Psych: Normal mood and affect. Objective Objective Clinical Data: Abnormal lab results 02/18/19 02/19/19 02/19/19 Range/Units 23:20 05:30 06:20 RBC (4.00-5.20) m/cumm Hgb (12.0-15.5) g/dL Hct (36.0-46.0) % MCHC (32.0-36.0) g/dL Absolute Neutrophils (1.2-6.7) k/cumm Absolute Lymphocytes (1.2-3.4) k/cumm APTT 40.2 H 42.1 H (21.0-31.4) sec Potassium 3.2 L (3.5-5.1) mmol/L 02/19/19 Range/Units 06:20 RBC 3.64 L (4.00-5.20) m/cumm Hgb 10.4 L (12.0-15.5) g/dL Hct 32.7 L (36.0-46.0) % MCHC 31.8 L (32.0-36.0) g/dL Absolute Neutrophils 6.86 H (1.2-6.7) k/cumm Absolute Lymphocytes 1.15 L (1.2-3.4) k/cumm APTT (21.0-31.4) sec Potassium (3.5-5.1) mmol/L Vital Signs Temperature 36.8 C 02/19/19 15:37 Temperature Source Skin 02/19/19 15:37 Pulse 107 H 02/19/19 20:06 Pulse Rhythm Irregular 02/19/19 15:38 Respiratory Rate 17 02/19/19 15:37 Respiratory Effort Non-Labored 02/19/19 15:38 Respiratory Depth Normal 02/19/19 15:38 Respiratory Pattern Normal 02/19/19 15:38 Blood Pressure 113/76 02/19/19 20:06 Blood Pressure Position Sitting 02/11/19 18:00 Pulse Oximetry 100 02/19/19 15:37 Oxygen Delivery Method Room Air 02/19/19 15:37 Oxygen Flow Rate 0 02/19/19 15:37 Fraction of Inspired Oxygen (FIO2) 21 02/17/19 08:13 Pain Level 0 02/19/19 15:37 Comment 02/19/19 03:55 Intake & Output 02/18/19 02/19/19 02/19/19 23:59 11:59 23:59 Intake Total 2049 435.500 / 1336.667 901.167 / 1336.667 Balance 1449 435.500 / 1336.667 901.167 / 1336.667 Weight 86.9 kg Intake: IV 50 135.500 / 254.667 119.167 / 254.667 Oral 300 / 1082 782 / 1082 Other: Urine Color Yellow Urine Appearance Clear Clear Urine Odor None Comment not measured voided in toilet Stool Occult Blood Negative Stool Size Small Stool Characteristics Soft Voiding Methods Toilet Toilet Laboratory Results WBC 8.81 k/cumm (4.4-10.8) 02/19/19 06:20 RBC 3.64 m/cumm (4.00-5.20) L 02/19/19 06:20 Hgb 10.4 g/dL (12.0-15.5) L 02/19/19 06:20 Hct 32.7 % (36.0-46.0) L 02/19/19 06:20 MCV 89.8 fL (80-95) 02/19/19 06:20 MCH 28.6 pg (27.0-33.0) 02/19/19 06:20 MCHC 31.8 g/dL (32.0-36.0) L 02/19/19 06:20 RDW 13.9 % (11.7-14.6) 02/19/19 06:20 Plt Count 333 x1000/uL (130-400) 02/19/19 06:20 MPV 8.7 fL (8.0-11.0) 02/19/19 06:20 Immature Gran % 0.3 02/19/19 06:20 Neutrophils % 77.9 02/19/19 06:20 Lymphocytes % 13.1 02/19/19 06:20 Monocytes % 6.7 02/19/19 06:20 Eosinophils % 1.8 02/19/19 06:20 Basophils % 0.2 02/19/19 06:20 Absolute Neutrophils 6.86 k/cumm (1.2-6.7) H 02/19/19 06:20 Absolute Lymphocytes 1.15 k/cumm (1.2-3.4) L 02/19/19 06:20 Absolute Monocytes 0.59 k/cumm (0.11-0.7) 02/19/19 06:20 Absolute Eosinophils 0.16 k/cumm (0.0-0.7) 02/19/19 06:20 Absolute Basophils 0.02 k/cumm (0.0-0.2) 02/19/19 06:20 PT 11.1 sec (9.3-11.0) H 02/18/19 10:35 INR 1.1 (0.9-1.1) 02/18/19 10:35 APTT 42.1 sec (21.0-31.4) H 02/19/19 05:30 Sodium 142 mmol/L (136-145) 02/19/19 06:20 Potassium 3.2 mmol/L (3.5-5.1) L 02/19/19 06:20 Chloride 106 mmol/L (98-107) 02/19/19 06:20 Carbon Dioxide 25.8 mmol/L (21.0-32.0) 02/19/19 06:20 Anion Gap 10.2 mmol/L (3-11) 02/19/19 06:20 BUN 13 mg/dL (7-18) 02/19/19 06:20 Creatinine 0.79 mg/dL (0.55-1.02) 02/19/19 06:20 Estimated GFR/1.73 m2 >= 60.00 (mL/min/1.73m2) 02/19/19 06:20 Glucose 97 mg/dL (70-100) 02/19/19 06:20 Calcium 8.9 mg/dL (8.5-10.1) 02/19/19 06:20 Magnesium 2.0 mg/dL (1.8-2.4) 02/19/19 06:20 Total Bilirubin 0.4 mg/dL (0.2-1.0) 02/11/19 18:16 AST 18 U/L (15-37) 02/11/19 18:16 ALT 30 U/L (14-59) 02/11/19 18:16 Alkaline Phosphatase 90 U/L (46-116) 02/11/19 18:16 Total Protein 8.0 g/dL (6.4-8.2) 02/11/19 18:16 Albumin 3.5 g/dL (3.4-5.0) 02/11/19 18:16 Patient ABO/Rh O Negative 02/11/19 18:35 Antibody Screen Negative 02/11/19 18:35
[2019-02-19] MEDS: Atorvastatin 20 MG TAB PO (22:20)
[2019-02-19] MEDS: Apixaban 5 MG TAB PO (22:20)
--- NOTE | 2019-02-19 23:55 | W.PM.PROGNOT ---
Date of Service Date of service: 02/19/19 Time of Service: 23:55 Assessment and Plan Assessment and plan (1) H/O: CVA (cerebrovascular accident): Status: Acute (2) Anemia due to acute blood loss: Status: Acute (3) Diverticula of colon: Status: Acute Assessment and plan: no bleedingin the past 24 hrs. If she re-bleeds, than she should go for a angio adn embolization. Subjective Subjective Interval history since last seen: Late entry from 13:30 I went to see the pt and she was alseep. I did review her progress w/ her RN. She has not had any blood in stools for the last 24hrs. Her stools were heme-. She is currently on heparin. Her CE yesterday was neg for any signs of old or active bleeding. She has severe diverticular Dx that extends all the way to the right colon. Objective Objective Clinical Data: Abnormal lab results 02/19/19 02/19/19 02/19/19 Range/Units 05:30 06:20 06:20 RBC 3.64 L (4.00-5.20) m/cumm Hgb 10.4 L (12.0-15.5) g/dL Hct 32.7 L (36.0-46.0) % MCHC 31.8 L (32.0-36.0) g/dL Absolute Neutrophils 6.86 H (1.2-6.7) k/cumm Absolute Lymphocytes 1.15 L (1.2-3.4) k/cumm APTT 42.1 H (21.0-31.4) sec Potassium 3.2 L (3.5-5.1) mmol/L Vital Signs Temperature 36.8 C 02/19/19 15:37 Temperature Source Skin 02/19/19 15:37 Pulse 107 H 02/19/19 20:06 Pulse Rhythm Irregular 02/19/19 20:05 Respiratory Rate 17 02/19/19 15:37 Respiratory Effort Non-Labored 02/19/19 20:05 Respiratory Depth Normal 02/19/19 20:05 Respiratory Pattern Normal 02/19/19 20:05 Blood Pressure 113/76 02/19/19 20:06 Blood Pressure Position Sitting 02/11/19 18:00 Pulse Oximetry 100 02/19/19 20:05 Oxygen Delivery Method Room Air 02/19/19 20:05 Oxygen Flow Rate 0 02/19/19 20:05 Fraction of Inspired Oxygen (FIO2) 21 02/17/19 08:13 Pain Level 0 02/19/19 15:37 Comment 02/19/19 03:55 Intake & Output 02/18/19 02/19/19 02/19/19 23:59 11:59 23:59 Intake Total 2049 435.500 / 1336.667 901.167 / 1336.667 Balance 1449 435.500 / 1336.667 901.167 / 1336.667 Weight 86.9 kg Intake: IV 135.500 / 254.667 119.167 / 254.667 Oral 300 / 1082 782 / 1082 Other: Urine Color Yellow Urine Appearance Clear Clear Clear Urine Odor None Comment not measured voided in toilet Stool Occult Blood Negative Stool Size Small Stool Characteristics Soft Voiding Methods Toilet Toilet Toilet Laboratory Results WBC 8.81 k/cumm (4.4-10.8) 02/19/19 06:20 RBC 3.64 m/cumm (4.00-5.20) L 02/19/19 06:20 Hgb 10.4 g/dL (12.0-15.5) L 02/19/19 06:20 Hct 32.7 % (36.0-46.0) L 02/19/19 06:20 MCV 89.8 fL (80-95) 02/19/19 06:20 MCH 28.6 pg (27.0-33.0) 02/19/19 06:20 MCHC 31.8 g/dL (32.0-36.0) L 02/19/19 06:20 RDW 13.9 % (11.7-14.6) 02/19/19 06:20 Plt Count 333 x1000/uL (130-400) 02/19/19 06:20 MPV 8.7 fL (8.0-11.0) 02/19/19 06:20 Immature Gran % 0.3 02/19/19 06:20 Neutrophils % 77.9 02/19/19 06:20 Lymphocytes % 13.1 02/19/19 06:20 Monocytes % 6.7 02/19/19 06:20 Eosinophils % 1.8 02/19/19 06:20 Basophils % 0.2 02/19/19 06:20 Absolute Neutrophils 6.86 k/cumm (1.2-6.7) H 02/19/19 06:20 Absolute Lymphocytes 1.15 k/cumm (1.2-3.4) L 02/19/19 06:20 Absolute Monocytes 0.59 k/cumm (0.11-0.7) 02/19/19 06:20 Absolute Eosinophils 0.16 k/cumm (0.0-0.7) 02/19/19 06:20 Absolute Basophils 0.02 k/cumm (0.0-0.2) 02/19/19 06:20 PT 11.1 sec (9.3-11.0) H 02/18/19 10:35 INR 1.1 (0.9-1.1) 02/18/19 10:35 APTT 42.1 sec (21.0-31.4) H 02/19/19 05:30 Sodium 142 mmol/L (136-145) 02/19/19 06:20 Potassium 3.2 mmol/L (3.5-5.1) L 02/19/19 06:20 Chloride 106 mmol/L (98-107) 02/19/19 06:20 Carbon Dioxide 25.8 mmol/L (21.0-32.0) 02/19/19 06:20 Anion Gap 10.2 mmol/L (3-11) 02/19/19 06:20 BUN 13 mg/dL (7-18) 02/19/19 06:20 Creatinine 0.79 mg/dL (0.55-1.02) 02/19/19 06:20 Estimated GFR/1.73 m2 >= 60.00 (mL/min/1.73m2) 02/19/19 06:20 Glucose 97 mg/dL (70-100) 02/19/19 06:20 Calcium 8.9 mg/dL (8.5-10.1) 02/19/19 06:20 Magnesium 2.0 mg/dL (1.8-2.4) 02/19/19 06:20 Total Bilirubin 0.4 mg/dL (0.2-1.0) 02/11/19 18:16 AST 18 U/L (15-37) 02/11/19 18:16 ALT 30 U/L (14-59) 02/11/19 18:16 Alkaline Phosphatase 90 U/L (46-116) 02/11/19 18:16 Total Protein 8.0 g/dL (6.4-8.2) 02/11/19 18:16 Albumin 3.5 g/dL (3.4-5.0) 02/11/19 18:16 Patient ABO/Rh O Negative 02/11/19 18:35 Antibody Screen Negative 02/11/19 18:35
[2019-02-20] MEDS: Levothyroxine 50 MCG TAB PO (04:42)
[2019-02-20 07:10] VITALS: PULSE 92
[2019-02-20 07:39] LABS: Abs Immature Grans 0.02 k/cumm (0.0-0.09); Absolute Basophil Count 0.03 k/cumm (0.0-0.2); Absolute Eosinophil Count 0.16 k/cumm (0.0-0.7); Absolute Lymphocyte Count 1.24 k/cumm (1.2-3.4); Absolute Monocyte Count 0.64 k/cumm (0.11-0.7); Absolute Neutrophil Count 8.34 k/cumm (1.2-6.7); Basophils % 0.3; Eosinophils % 1.5; HCT 35.1 % (36.0-46.0); HGB 11.1 g/dL (12.0-15.5); Immature Grans % 0.2; Lymphocytes % 11.9; Mean Corp. HGB Concentration 31.6 g/dL (32.0-36.0); Mean Corpuscular Hemoglobin 28.6 pg (27.0-33.0); Mean Corpuscular Volume 90.5 fL (80-95); Mean Platelet Volume 8.5 fL (8.0-11.0); Monocytes % 6.1; Platelet Count 371 x1000/uL (130-400); RBC 3.88 m/cumm (4.00-5.20); White Blood Cell Count 10.43 k/cumm (4.4-10.8)
[2019-02-20 07:46] LABS: PTT Activated 27.2 sec (21.0-31.4)
[2019-02-20 07:49] LABS: Anion Gap 8.2 mmol/L (3-11); BUN 15 mg/dL (7-18); CO2 26.8 mmol/L (21.0-32.0); Calcium 8.9 mg/dL (8.5-10.1); Chloride 106 mmol/L (98-107); Glucose 98 mg/dL (70-100); Potassium 3.7 mmol/L (3.5-5.1); Sodium 141 mmol/L (136-145)
[2019-02-20] MEDS: Pantoprazole 40 MG VIAL IVP (08:41)
[2019-02-20 08:42] VITALS: BP 128/72; PULSE 65; RESP 17; TEMP 37; O2SAT 98
[2019-02-20] MEDS: Docusate Sodium 100 MG CAP PO (08:42)
[2019-02-20] MEDS: Normal Saline Flush 10 ML SYR IVP (08:42)
[2019-02-20] MEDS: Apixaban 5 MG TAB PO (08:42)
[2019-02-20] MEDS: Metoprolol 50 MG TAB PO (08:43)
[2019-02-20] MEDS: POTASSIUM CHLORIDE 20 MEQ, POTASSIUM CHLORIDE 10 MEQ 30 MEQ PO (10:54)
--- NOTE | 2019-02-20 11:58 | W.PM.DS.N ---
Date of service: 02/20/19 Time of Service: 11:58 DS: Diagnosis Discharge Diagnosis (1) H/O: CVA (cerebrovascular accident): Status: Acute (2) Anemia due to acute blood loss: Status: Acute (3) Diverticula of colon: Status: Acute Discharge Plan Disposition Patient Disposition: HOME Condition: Stable Discharge Details Chief Complaint: GI Bleed Clinical Impression: Acute GI bleeding Reason For Visit: LOWER GI BLEED Admit Date/Time: 02/13/19 10:29 Admit Provider: Avery Barba Attending Provider: Avery Barba Primary Care Provider: Avi Castillo ED Provider: Ruth Min Hospital Course Hospital Course: Chief Complaint: BRBPR HPI: 63 year old woman with a prior history of AFib on AC as well as recent CVA, admitted from [facility] Emergency Department on 02/13 with a diagnosis of LGIB. Mrs. Vinson has a past Medical History significant for Afib on AC with Apixaban, HTN, Hypothyroidism, VALERIE on CPAP therapy, and Obesity. She was just admitted and treated last month at [facility] for acute CVA, manifested by a transient right sided hemiparesis and dysarthria, that despite her history of Afib was deemed likely small vessel disease in etiology in the setting of a recent infection. Recommendations were made for addition of daily antiplatelet therapy in the form of aspirin to her anticoagulation. The patient had been doing well until onset of BRBPR that prompted evaluation in the ED. Work-up initially revealed a stable and essentially unchanged anemia, unremarkable CMP, and obvious gross blood per rectum. She also reported a prior history of GI Bleeding in the past that was attributed to diverticular bleeding. Following admission Mrs. Vinson has undergone repeat attempts at anticoagulation with Lovenox and heparin gtt due to her history of Afib and with her recent CVA. However, she has continued to experienced bleeding with this. She underwent a colonoscopy on 02/18 that showed evidence of pandiverticulosis, without evidence of the source of the bleed. She was reinitiated on a heparin drip, with a hemoglobin that remained stable, and with patient reporting no further bleeding episodes. Last night she was changed over to oral Apixaban, and appears to be tolerating it well. Her Hgb has remained stable and continues to improve. She is also tolerating a diet. No overnight events reported. She remains afebrile. Hospital Course: (1) Lower GI bleed: Very likely diverticular in nature, with no evidence of recurrence currently on anticoagulation. Colonoscopy results as previously reported. -Appears to have tolerated the discontinuation of heparin gtt and reinitiation of apixaban, without any further bleeding and with a stable and improving Hgb (low of 9.8 --> 11.1 at time of discharge). The patient was also referred for outpatient follow-up with [facility] general surgery and GI by admitting provider. -Plan will be for continuation of anticoagulation, repeat CBC in 2-3 days, and reinitiation of antiplatelet therapy 2 days after discharge. Patient advised to return to the hospital if recurrence in bleeding. Also, if she has any recurrence she will more than likely benefit from bleeding scan and IR for embolization. (2) H/O: CVA (cerebrovascular accident): Will need to resume daily antiplatelet therapy with aspirin as well as continuation of anticoagulation with apixaban. If anticoagulation is tolerated, plan will be for reinitiation of daily aspirin use in 2 days time. (3) Hypothyroidism: Continue replacement therapy. (4) Hypertension, essential, benign: Continue BB therapy. (5) Atrial fibrillation: Appears rate controlled. Continue BB therapy, anticoagulation as above. (6) DVT prophylaxis: On active anticoagulation as above. Will also continue PPI therapy for GI prophylaxis as well given need for both antiplatelet and anticoagulation therapy. Home Meds and New Rx's Prescriptions: New pantoprazole [Protonix] 40 mg tablet,delayed release (DR/EC) 40 mg PO DAILY Qty: 30 RF: 0 Continued metoprolol tartrate 50 MG tablet 50 mg PO BID RF: 0 Flovent HFA 120 PUFF HFA aerosol inhaler 2 puff Inhalation BID RF: 0 Eliquis 5 MG tablet 5 mg PO BID RF: 0 levothyroxine 50 mcg Capsule 50 mcg PO DAILY@0400 RF: 0 atorvastatin 20 mg tablet 20 mg PO QHS Qty: 30 RF: 0 aspirin 81 mg Tablet,Chewable 81 mg PO DAILY 30 Days Qty: 30 RF: 0 Discharge Instructions Referrals: GASTROENTEROLOGY,[facility] [OTHER] - (recurrent diverticular bleeding; patient who has Afib and is s/p CVA, so anticoagulation would be preferred - however, difficult with recurrent diverticular bleeds) GENERAL SURG,[facility] [OTHER] - (Patient with recurrent diverticular bleeding) Activity:: No strenuous activity Equipment/Supplies:: No Equipment Needed Diet:: Low Sodium Discharge Orders Discharge Orders: Discharge Order (Routine); Ordered 02/20/19 Ordered By: Beto Herrera Other Ambulatory Orders: Hemoglobin/Hematocrit (Routine) Timeframe: 3 Days Location: None Selected Ordered By: Beto Herrera DS: Summary Status at Discharge Functional status at discharge: independent ambulation Overall status at discharge: patient is back to baseline Mental Status: mental status grossly normal Speech and Movement: speech and movement normal Mood: congruent mood Affect: normal affect Exam Narrative Exam Narrative: Gen: AAOX3, NAD Neck: Supple CV: RRR, no rubs, murmurs, gallops Pulm: CTAB without rhonchi or wheezing Abdomen: +BS, s/nt/nd Vasc: No LE Edema Psych Mental Status: mental status grossly normal Speech and Movement: speech and movement normal Mood: congruent mood Affect: normal affect DS: Data Vitals/I&O Vitals and I&O: Vital Signs Temperature 37 C 02/20/19 08:42 Temperature Source Temporal Artery Scan 02/20/19 08:42 Pulse 65 02/20/19 08:42 Pulse Rhythm Regular 02/20/19 08:40 Respiratory Rate 17 02/20/19 08:42 Respiratory Effort 02/20/19 08:40 Respiratory Depth Normal 02/20/19 08:40 Respiratory Pattern Normal 02/20/19 08:40 Blood Pressure 128/72 02/20/19 08:42 Blood Pressure Position Sitting 02/11/19 18:00 Pulse Oximetry 98 02/20/19 08:42 Oxygen Delivery Method Room Air 02/20/19 08:42 Oxygen Flow Rate 0 02/20/19 08:42 Fraction of Inspired Oxygen (FIO2) 21 02/17/19 08:13 Pain Level 0 02/20/19 08:40 Comment 02/19/19 03:55 Intake & Output 02/19/19 02/19/19 02/20/19 11:59 23:59 11:59 Intake Total 435.500 / 1336.667 901.167 / 1336.667 Balance 435.500 / 1336.667 901.167 / 1336.667 Weight 86.9 kg Intake: IV 135.500 / 254.667 119.167 / 254.667 Oral 300 / 1082 782 / 1082 Other: Urine Color Yellow Urine Appearance Clear Clear Clear Comment not measured voided in toilet Stool Occult Blood Negative Negative Stool Size Small Small Stool Characteristics Soft Soft Voiding Methods Toilet Toilet Toilet Data Completed and Pending Completed studies during hospitalization [Text1]: DATE OF PROCEDURE: February 18, 2019 PREOPERATIVE DIAGNOSIS: Lower GI bleed. POSTOPERATIVE DIAGNOSIS: Lucia diverticulosis. PROCEDURE: Colonoscopy. SURGEON: Annabelle Barahona M.D. ANESTHESIA: General. INDICATIONS: This is a 63-year-old woman admitted almost a week ago with lower GI bleeding. The patient is anticoagulated following a recent stroke. She will have a bloody bowel movement about every other day after resuming her anticoagulation. Her hemoglobin has remained stable in the 10 range. PROCEDURE: She was placed in the left Magallon position. Propofol was titrated to sedation. Digital rectal examination revealed no abnormalities. The scope was advanced to the cecum without difficulty. The ileocecal valve and appendiceal orifice were clearly identified. Her prep was excellent. There was no old blood within the colon or evidence of active bleeding. The scope was slowly withdrawn with lucia diverticulosis noted throughout the colon, although most prominent in the sigmoid region. There was again no guidance as to where the bleeding had arisen. There were no clots, no visible vessels and again no active bleeding. The rectum was normal, including on retroflex view. She tolerated the procedure well and was stable to recovery. If the patient has further active bleeding, then localization can be attempted with a tagged red blood cell scan or interventional radiology with possible embolization. Surgery would involve a subtotal colectomy and the less invasive measures would be advised first. The patient will not need a screening colonoscopy for ten years. Labs on day of discharge: Labs from last 24 hours 02/20/19 02/20/19 02/20/19 06:58 06:58 06:58 WBC 10.43 RBC 3.88 L Hgb 11.1 L Hct 35.1 L MCV 90.5 MCH 28.6 MCHC 31.6 L RDW 14.0 Plt Count 371 MPV 8.5 Immature Gran % 0.2 Neutrophils % 80.0 Lymphocytes % 11.9 Monocytes % 6.1 Eosinophils % 1.5 Basophils % 0.3 Absolute Neutrophils 8.34 H Absolute Lymphocytes 1.24 Absolute Monocytes 0.64 Absolute Eosinophils 0.16 Absolute Basophils 0.03 APTT 27.2 Sodium 141 Potassium 3.7 Chloride 106 Carbon Dioxide 26.8 Anion Gap 8.2 BUN 15 Creatinine 0.90 Estimated GFR/1.73 m2 >= 60.00 Glucose 98 Calcium 8.9 Magnesium 2.0 PFSH Medical History Allergic rhinitis (Chronic) Anemia (Chronic) Asthma (Chronic) Atrial fibrillation (Chronic) Diverticula of colon (Acute) Diverticulitis 2011 and 2013 Hypertension, essential, benign (Chronic) Hypothyroidism (Chronic) Nonhealing skin ulcer (Chronic) RLE Obesity (BMI 30.0-34.9) (Acute) Sleep apnea (Chronic) Uses CPAP Vitamin D deficiency (Chronic) Surgical History Colonoscopy - MAC (08/10/17) History of esophagogastroduodenoscopy (EGD) (Chronic) Family History Maternal Grandfather Heart disease Mother Diabetes Hypertension Pancreatic cancer Maternal Grandmother Diabetes Father Head and neck cancer Brain cancer Other Diverticulitis Social History Smoking/Tobacco Use Status: Never Alcohol Intake: never Drug use: Never Substance use type: does not use Do you feel safe at home: Yes Do you feel safe in your relationship?: Yes
[2019-02-20 13:36] VITALS: PULSE 93
--- NOTE | 2019-02-20 19:32 | PDOC.CMDIS ---
LACE Index Scoring Tool - Questions: Length of Stay (in days): 7 - 13 Acuity (Admit via E.D.?): Yes E.D. Visits: 1 - Answers: Total Score: 9 Risk of Readmission: Low Risk Care Management Discharge Reason for Hospitalization: Lower GI Bleed Discharge Plan: Adali will return home when medically cleared for discharge. No services needed at this time. will transport. Patient/Family Education Needs: Discharge instructions.
== END 2019-02-20 14:04 | disposition home or self-care (01) | DRG 378 ==
LOC: ER 21:10 → MS 02-14 09:30
PROVIDERS: Internal Medicine; Surgery; Admitting Provider General Practice; Emergency Provider Physician Assistant; PCP Nurse Practitioner Family; Visit Provider Internal Medicine
PROC: 0DJD8ZZ Inspection of Lower Intestinal Tract, Via Natural or Artificial Opening Endoscopic (ICD-10-PCS; CPT 45378; principal; 2019-02-18 13:30)
DX: K57.31 Diverticulosis of large intestine without perforation or abscess with bleeding (principal); D62 Acute posthemorrhagic anemia; I48.91 Unspecified atrial fibrillation; Z79.01 Long term (current) use of anticoagulants; Z79.82 Long term (current) use of aspirin; Z86.73 Personal history of transient ischemic attack (TIA), and cerebral infarction without residual deficits; I10 Essential (primary) hypertension; E03.9 Hypothyroidism, unspecified; G47.33 Obstructive sleep apnea (adult) (pediatric); E66.9 Obesity, unspecified; Z68.32 Body mass index [BMI] 32.0-32.9, adult
CPT/HCPCS: 45378; 36415; 80048; 80053; 85027; 86850; 86900; 86901; 94640; 96360; 96361; 99222; 99225; 99231; 99232; 99238; 99253; 99285; NC; 83735; 85014; 85018; 85025; 85610; 85730; 99219; 99284; G0378; J1650; J3490

== ENCOUNTER 2019-02-22 08:25 | Outpatient (CLI) | payer BC, SELFPAY ==
[2019-02-22 10:32] LABS: HCT 34.6 % (36.0-46.0); HGB 11.1 g/dL (12.0-15.5)
== END 2019-02-22 08:45 ==
PROVIDERS: PCP Nurse Practitioner Family; Visit Provider Internal Medicine
DX: D50.0 Iron deficiency anemia secondary to blood loss (chronic) (principal)
CPT/HCPCS: 36415; 85014; 85018

== ENCOUNTER 2019-02-23 01:04 | Outpatient (CLI) | payer BC, SELFPAY ==
[2019-02-23 11:35] LABS: Abs Immature Grans 0.01 k/cumm (0.0-0.09); Absolute Basophil Count 0.04 k/cumm (0.0-0.2); Absolute Eosinophil Count 0.19 k/cumm (0.0-0.7); Absolute Lymphocyte Count 1.42 k/cumm (1.2-3.4); Absolute Monocyte Count 0.85 k/cumm (0.11-0.7); Absolute Neutrophil Count 5.84 k/cumm (1.2-6.7); Basophils % 0.5; Eosinophils % 2.3; HGB 10.8 g/dL (12.0-15.5); Immature Grans % 0.1; Mean Corp. HGB Concentration 31.8 g/dL (32.0-36.0); Mean Corpuscular Hemoglobin 28.3 pg (27.0-33.0); Mean Corpuscular Volume 89.2 fL (80-95); Mean Platelet Volume 8.4 fL (8.0-11.0); Monocytes % 10.2; Neutrophils % 69.9; Platelet Count 423 x1000/uL (130-400); RBC 3.81 m/cumm (4.00-5.20); White Blood Cell Count 8.35 k/cumm (4.4-10.8)
[2019-02-23 11:57] LABS: Diff Comment Agrees w/ Instrument; RBC Morphology Normal
== END 2019-02-23 01:24 ==
PROVIDERS: PCP Nurse Practitioner Family; Visit Provider Internal Medicine
DX: D62 Acute posthemorrhagic anemia (principal)
CPT/HCPCS: 36415; 85025

== ENCOUNTER 2019-02-24 02:04 | Outpatient (CLI) | payer BC, SELFPAY ==
[2019-02-24 10:41] LABS: HCT 35.3 % (36.0-46.0); HGB 11.3 g/dL (12.0-15.5)
== END 2019-02-24 02:24 ==
PROVIDERS: PCP Nurse Practitioner Family; Visit Provider Internal Medicine
DX: D50.0 Iron deficiency anemia secondary to blood loss (chronic) (principal)
CPT/HCPCS: 36415; 85014; 85018

== ENCOUNTER 2019-03-03 12:18 | Outpatient (REF) | payer BC, SELFPAY | END 2019-03-03 12:38 | LOC: NCHCN 12:18 | PROVIDERS: PCP Nurse Practitioner Family; Visit Provider Nurse Practitioner Family | DX: Z00.00 Encounter for general adult medical examination without abnormal findings (principal); E04.9 Nontoxic goiter, unspecified | CPT/HCPCS: 84443 ==

== ENCOUNTER 2019-03-20 12:24 | Emergency (ER) | payer BC, SELFPAY ==
[2019-03-20] VITALS (12 sets, daily range): BP systolic 127–142; BP diastolic 81–93; PULSE 71–93; RESP 16; TEMP 36.7; O2SAT 94–98
[2019-03-20 13:15] LABS: Abs Immature Grans 0.03 k/cumm (0.0-0.09); Absolute Basophil Count 0.05 k/cumm (0.0-0.2); Absolute Eosinophil Count 0.32 k/cumm (0.0-0.7); Absolute Lymphocyte Count 0.96 k/cumm (1.2-3.4); Absolute Neutrophil Count 6.85 k/cumm (1.2-6.7); Basophils % 0.6; Eosinophils % 3.6; HCT 34.7 % (36.0-46.0); Immature Grans % 0.3; Lymphocytes % 10.9; Mean Corp. HGB Concentration 31.7 g/dL (32.0-36.0); Mean Corpuscular Hemoglobin 27.4 pg (27.0-33.0); Mean Corpuscular Volume 86.3 fL (80-95); Mean Platelet Volume 8.2 fL (8.0-11.0); Monocytes % 6.8; Neutrophils % 77.8; Platelet Count 439 x1000/uL (130-400); RBC 4.02 m/cumm (4.00-5.20); RBC Distribution Width 13.7 % (11.7-14.6); White Blood Cell Count 8.81 k/cumm (4.4-10.8)
--- NOTE | 2019-03-20 14:03 | ED.GENADUL_ITS ---
Discharge Plan Disposition Patient Disposition: HOME Condition: Stable Discharge Details Chief Complaint: GI Bleed Clinical Impression: GI bleed Primary Care Provider: Avi Castillo ED Provider: Santino Tee Home Meds and New Rx's Prescriptions: No Action metoprolol tartrate 50 MG tablet 50 mg PO BID RF: 0 Flovent HFA 120 PUFF HFA aerosol inhaler 2 puff Inhalation BID RF: 0 Eliquis 5 MG tablet 5 mg PO BID RF: 0 levothyroxine 50 mcg Capsule 50 mcg PO DAILY@0400 RF: 0 atorvastatin 20 mg tablet 20 mg PO QHS Qty: 30 RF: 0 pantoprazole [Protonix] 40 mg tablet,delayed release (DR/EC) 40 mg PO DAILY Qty: 30 RF: 0 Discharge Instructions Additional Instructions: 1. Drink plenty of fluids. 2. Continue all medications as prescribed. 3. Follow-up tomorrow with your specialist about further changes in management. 4. Return for any worsening bleeding, increased lower abdominal pain/cramping, lightheadedness, difficulty breathing, palpitations, or chest pain. Return to the Emergency Department (ED) if your condition worsens, does not improve as expected, or for ANY other concerns. Specifically, return if you have new or uncontrolled pain, worsening fever, difficulty breathing, vomiting, or are unable to drink fluids. Medical Decision Making 63 old woman with a past medical history of atrial fibrillation/CVA (on Eliquis and aspirin) and a recent lower GI bleed of unclear origin. Extensive evaluation including colonoscopy was nondiagnostic for bleeding source although her bleed was thought to be from known diverticular. Presents after an episode of bright red blood per rectum associated with a normal bowel movement. Describes having had 1 bowel movement of bright red blood per rectum with multiple small episodes since. By time of arrival, she is asymptomatic with no abdominal pain or further episodes of rectal bleeding. Has no other constitutional complaints. Reviewed previous medical records which were diagnostic for her negative colonoscopy (diverticular disease) and no clear evidence of source of bleeding. Hemoglobin = 11. Remained stable in the ED with no further episodes of bleeding and no other constitutional complaints. Lengthy discussion with patient and her spouse about admission for observation versus return home and follow-up as needed for recurrent symptoms. Ms. Vinson' brenda endorses that she did not have a bowel yesterday and had a large bowel but today which preceded onset of bleeding. Discharged with a plan to continue regular medications, increase fibers and stool softeners, and follow-up as needed. Given usual and customary return instructions prior to discharge. Medical Records Medical records reviewed: Yes I reviewed the patient's medical records. Lab Data Lab results reviewed: Yes I reviewed the patient's lab results. Lab results narrative: Hemoglobin = 11. HPI 63 woman with a past medical history which includes anemia, asthma atrial fibrillation, diverticulosis, hypertension. Had a previous CVA associated with atrial fibrillation is currently on baby aspirin and apixaban. Resubmitted here for 9 days for a lower GI bleed. Evaluation at that time included a nondiagnostic colonoscopy which was notable for diverticular disease but otherwise with no evidence of active bleeding or visualization of a likely bleeding site. She has since met with a GI specialist for assessment of possible intervention should her bleeding recur. Presents after an episode of lower GI bleeding. Onset was associate with having had a bowel movement and then subsequent bright red blood per rectum. By time of arrival here, she has no abdominal discomfort or active bleeding. She denies any other associated constitutional complaints including no fevers/chills, dyspnea, chest pain, palpitations, lightheadedness, abdominal pain. General Date/Time Provider Initiated Documentation: 03/20/19 13:00 . Related Data Home Medications Medication Instructions Recorded Confirmed Eliquis 5 mg PO BID 01/29/14 02/11/19 Flovent HFA 2 puff INHALATION BID 01/29/14 02/11/19 metoprolol tartrate 50 mg PO BID 01/29/14 02/11/19 levothyroxine 50 mcg PO DAILY@0400 01/30/19 02/11/19 atorvastatin 20 mg PO QHS #30 tab 01/31/19 02/11/19 pantoprazole [Protonix] 40 mg PO DAILY #30 tab 02/20/19 Previous Rx's Medication Instructions Recorded atorvastatin 20 mg PO QHS #30 tab 01/31/19 pantoprazole [Protonix] 40 mg PO DAILY #30 tab 02/20/19 Allergies Allergy/AdvReac Type Severity Reaction Status Date / Time penicillin V potassium Allergy Intermediate rash Unverified 02/11/19 18:05 [From Pen-Vee K] albuterol Allergy Mild Unverified 02/11/19 18:05 amoxicillin [From Augmentin] Allergy Unverified 03/20/19 12:37 clavulanic acid Allergy Unverified 03/20/19 12:37 [From Augmentin] Penicillins Allergy Unverified 03/20/19 12:37 General Stated Complaint: GI Bleed BREE: 3 Review of Systems All systems reviewed & are unremarkable except as noted in HPI and below PFSH Medical History Allergic rhinitis (Chronic) Anemia (Chronic) Asthma (Chronic) Atrial fibrillation (Chronic) Diverticula of colon (Acute) Diverticulitis 2011 and 2013 Hypertension, essential, benign (Chronic) Hypothyroidism (Chronic) Nonhealing skin ulcer (Chronic) RLE Obesity (BMI 30.0-34.9) (Acute) Sleep apnea (Chronic) Uses CPAP Vitamin D deficiency (Chronic) Surgical History Colonoscopy - MAC (08/10/17) History of esophagogastroduodenoscopy (EGD) (Chronic) Family History Maternal Grandfather Heart disease Mother Diabetes Hypertension Pancreatic cancer Maternal Grandmother Diabetes Father Head and neck cancer Brain cancer Other Diverticulitis Social History Smoking/Tobacco Use Status: Never Alcohol Intake: never Drug use: Never Substance use type: does not use Do you feel safe at home: Yes Do you feel safe in your relationship?: Yes Exam Narrative Exam Narrative: Nursing note and vital signs have been reviewed and noted. GENERAL: alert, active, no acute distress, well -hydrated, well-nourished HEENT: atraumatic/normocephalic, PERRLA, EOMI, conjunctiva clear, external ears/canals normal, nasal mucosa normal NECK: supple, full range of motion, no mass, normal lymphadenopathy, no thyromegaly CARDIOVASCULAR: RRR, no murmurs, nl pulses, no edema PULMONARY: nl effort, no audible wheezing or stridor, nl breath sounds with no focal deficit. no chest wall tenderness ABDOMEN: soft, non-tender, non-distended, no mass, no organomegaly EXTREMITY: normal muscle tone, all joints with FROM, no deformity or tenderness SKIN: no exanthem appreciated NEURO: gross motor exam normal, normal stance and gait PSYCH: alert and oriented, Course Vital Signs Vital signs: Vital Signs Temperature 98.1 F 03/20/19 12:29 Pulse 92 H 03/20/19 12:29 Respiratory Rate 16 03/20/19 12:29 Blood Pressure 132/88 03/20/19 12:29 Pulse Oximetry 98 03/20/19 12:29 Temperature 98.1 F 03/20/19 12:29 Temperature Source Skin 03/20/19 12:29 Pulse 89 03/20/19 13:45 Respiratory Rate 16 03/20/19 12:29 Respiratory Effort Non-Labored 03/20/19 12:35 Blood Pressure 138/86 03/20/19 13:45 Blood Pressure Mean 96 03/20/19 13:45 Blood Pressure Position Sitting 03/20/19 12:29 Pulse Oximetry 95 03/20/19 13:50 Oxygen Delivery Method Room Air 03/20/19 12:29 Oxygen Flow Rate 0 03/20/19 12:29 Pain Level 0 03/20/19 12:29 Lab/Test Results Lab/Test Results: Laboratory Tests Range/Units 03/20/19 12:49 WBC (4.4-10.8) k/cumm 8.81 RBC (4.00-5.20) m/cumm 4.02 Hgb (12.0-15.5) g/dL 11.0 L Hct (36.0-46.0) % 34.7 L MCV (80-95) fL 86.3 MCH (27.0-33.0) pg 27.4 MCHC (32.0-36.0) g/dL 31.7 L RDW (11.7-14.6) % 13.7 Plt Count (130-400) x1000/uL 439 H MPV (8.0-11.0) fL 8.2 Immature Gran % 0.3 Neutrophils % 77.8 Lymphocytes % 10.9 Monocytes % 6.8 Eosinophils % 3.6 Basophils % 0.6 Absolute Neutrophils (1.2-6.7) k/cumm 6.85 H Absolute Lymphocytes (1.2-3.4) k/cumm 0.96 L Absolute Monocytes (0.11-0.7) k/cumm 0.60 Absolute Eosinophils (0.0-0.7) k/cumm 0.32 Absolute Basophils (0.0-0.2) k/cumm 0.05
== END 2019-03-20 14:10 | disposition home or self-care (01) ==
PROVIDERS: Emergency Provider Emergency Medicine; PCP Nurse Practitioner Family
DX: K92.2 Gastrointestinal hemorrhage, unspecified (principal); Z79.01 Long term (current) use of anticoagulants; I48.91 Unspecified atrial fibrillation; I10 Essential (primary) hypertension; K57.90 Diverticulosis of intestine, part unspecified, without perforation or abscess without bleeding
CPT/HCPCS: 36415; 99284; 85025

== ENCOUNTER 2019-03-20 20:47 | Inpatient (IN) | payer BC, SELFPAY ==
[2019-03-20 20:51] VITALS: BP 162/98; PULSE 99; RESP 16; TEMP 36.6; O2SAT 99
--- NOTE | 2019-03-20 21:05 | ED.GENADUL_ITS ---
Discharge Plan Disposition Patient Disposition: [facility] INPATIENT Condition: Stable Discharge Details Chief Complaint: GI Bleed Clinical Impression: Acute lower gastrointestinal bleeding, Chronic anticoagulation, Acute diverticulitis Primary Care Provider: Avi Castillo ED Provider: Christine Agee Home Meds and New Rx's Prescriptions: No Action metoprolol tartrate 50 MG tablet 50 mg PO BID RF: 0 Flovent HFA 120 PUFF HFA aerosol inhaler 2 puff Inhalation BID RF: 0 Eliquis 5 MG tablet 5 mg PO BID RF: 0 levothyroxine 50 mcg Capsule 50 mcg PO DAILY@0400 RF: 0 atorvastatin 20 mg tablet 20 mg PO QHS Qty: 30 RF: 0 aspirin 81 mg Tablet,Chewable 81 mg PO DAILY RF: 0 pantoprazole [Protonix] 40 mg tablet,delayed release (DR/EC) 40 mg PO DAILY Qty: 30 RF: 0 Medical Decision Making 63-year-old female with a history of atrial fibrillation on Eliquis and recent CVA in January 2019 now on aspirin presents with lower GI bleeding since 11 AM this morning. Patient was seen her earlier today for the same complaint. Her hemoglobin was 11. She was offered admission but her symptoms stabilized and she preferred to go home. She states since discharge her bleeding has worsened and is a mixture of bright red and maroon-colored blood. She denied any abdominal pain to me but upon exam she had some tenderness to palpation her left lower quadrant and describes the pain is intermittent, aching and 5/10. She was admitted here last month for a lower GI bleed and had a colonoscopy which noted pandiverticulosis. Her Eliquis and aspirin had been held at that time and she was treated with heparin. Her GI bleeding had ceased and she was restarted on her p.o. anticoagulation. Patient was referred for follow-up with [facility] surgery and GI. Patient states she saw GI at [facility] recently and was referred for follow-up with colorectal surgery with whom she has an appointment on April 01. She is hemodynamically stable. She appears in no acute distress. Her rectal exam noted room colored blood. Case discussed with hospitalist who accepts patient for admission for observation and trending hemoglobin. Will also obtain CT abdomen and pelvis to rule out diverticulitis. 2309 --CT notes mild acute proximal sigmoid colon diverticulitis without abscess. Patient has allergy to penicillin which causes hives. Cipro and Flagyl IV ordered. Results discussed with Dr. Mendoza. Labs reviewed and note normal white blood cell count of 8. Hemoglobin decreased from 11 earlier today now to 10.7. Electrolytes within normal limits. Patient informed of results. Medical Records Medical records reviewed: Yes I reviewed the patient's medical records. Imaging Data Radiologic Study: Radiologist's impression: CT Abdomen And Pelvis With Contrast Exam date and time: 03/20/2019 9:17 PM Age: 63 years old Clinical history: Abdominal pain; Localized; Left lower quadrant (llq); Patient HX: Llq pain, gi bleeding, R/O diverticulitis; Additional info: HX of diverticula and lower gi bleed TECHNIQUE: Imaging protocol: Computed tomography of the abdomen and pelvis with intravenous contrast. Radiation optimization: All CT scans at this facility use at least one of these dose optimization techniques: automated exposure control; mA and/or kV adjustment per patient size (includes targeted exams where dose is matched to clinical indication); or iterative reconstruction. Contrast material: OMNIPAQUE 350; Contrast volume: 100 ml; Contrast route: IV; COMPARISON: CT ABD PELVIS WITH CONTRAST 08/07/2017 11:50 AM FINDINGS: Liver: Normal. No mass. Gallbladder and bile ducts: Normal. No calcified stones. No ductal dilation. Pancreas: Pancreatic atrophy. Spleen: Normal. No splenomegaly. Adrenals: Normal. No mass. Kidneys and ureters: Normal. No hydronephrosis. Stomach and bowel: Mild proximal sigmoid colon edema and surrounding inflammation in the region of multiple diverticulum. This is consistent with mild acute diverticulitis. No abscess. No perforation. No free fluid. No free air. Appendix: No evidence of appendicitis. Intraperitoneal space: See Stomach And Bowel Finding. Vasculature: Unremarkable. No abdominal aortic aneurysm. Lymph nodes: Unremarkable. No enlarged lymph nodes. Bladder: Unremarkable as visualized. Reproductive: Nonspecific enhancing nodule in the superior uterine body measuring 11 mm. Nonemergent pelvic ultrasound may be helpful for further delineation. This may be a small fibroid. Bones/joints: Unremarkable. No acute fracture. Soft tissues: Unremarkable. IMPRESSION: 1. Mild proximal sigmoid colon acute diverticulitis. 2. Nonspecific enhancing 11 mm focus in the superior uterine body. Recommend non emergent pelvic ultrasound. Lab Data Lab results reviewed: Yes I reviewed the patient's lab results. Labs: Laboratory Tests Range/Units 03/20/19 03/20/19 03/20/19 21:05 21:05 21:05 WBC (4.4-10.8) k/cumm 8.17 RBC (4.00-5.20) m/cumm 3.94 L Hgb (12.0-15.5) g/dL 10.7 L Hct (36.0-46.0) % 34.3 L MCV (80-95) fL 87.1 MCH (27.0-33.0) pg 27.2 MCHC (32.0-36.0) g/dL 31.2 L RDW (11.7-14.6) % 13.7 Plt Count (130-400) x1000/uL 406 H MPV (8.0-11.0) fL 8.2 Immature Gran % 0.2 Neutrophils % 69.5 Lymphocytes % 19.0 Monocytes % 7.3 Eosinophils % 3.5 Basophils % 0.5 Absolute Neutrophils (1.2-6.7) k/cumm 5.67 Absolute Lymphocytes (1.2-3.4) k/cumm 1.55 Absolute Monocytes (0.11-0.7) k/cumm 0.60 Absolute Eosinophils (0.0-0.7) k/cumm 0.29 Absolute Basophils (0.0-0.2) k/cumm 0.04 PT (9.3-11.0) sec 11.0 INR (0.9-1.1) 1.1 Sodium (136-145) mmol/L 142 Potassium (3.5-5.1) mmol/L 3.5 Chloride (98-107) mmol/L 105 Carbon Dioxide (21.0-32.0) mmol/L 24.7 Anion Gap (3-11) mmol/L 12.3 H BUN (7-18) mg/dL 15 Creatinine (0.55-1.02) mg/dL 1.02 Estimated GFR/1.73 m2 (mL/min/1.73m2) 54.56 Glucose (74-106) mg/dL 156 H Calcium (8.5-10.1) mg/dL 8.7 Total Bilirubin (0.2-1.0) mg/dL 0.4 AST (15-37) U/L 20 ALT (14-59) U/L 33 Alkaline Phosphatase (46-116) U/L 134 H Total Protein (6.4-8.2) g/dL 8.2 Albumin (3.4-5.0) g/dL 3.5 HPI General Mode of arrival: ambulatory . Date/Time Provider Initiated Documentation: 03/20/19 20:50 . Limitations to Documentation: no limitations . Information obtained by: patient . History of Present Illness 63 year old F presents to the emergency department with the chief complaint of rectal bleeding, Patient started experiencing this hour(s) (10) and it has been intermittent. No relieving factors improve symptom(s), No exacerbating factors reported . Patient notes no other symptoms.. Patient did receive the following treatments prior to arrival, none Related Data Home Medications Medication Instructions Recorded Confirmed Eliquis 5 mg PO BID 01/29/14 03/20/19 Flovent HFA 2 puff INHALATION BID 01/29/14 03/20/19 metoprolol tartrate 50 mg PO BID 01/29/14 03/20/19 levothyroxine 50 mcg PO DAILY@0400 01/30/19 03/20/19 atorvastatin 20 mg PO QHS #30 tab 01/31/19 03/20/19 pantoprazole [Protonix] 40 mg PO DAILY #30 tab 02/20/19 03/20/19 aspirin 81 mg PO DAILY 03/20/19 03/20/19 Previous Rx's Medication Instructions Recorded atorvastatin 20 mg PO QHS #30 tab 01/31/19 pantoprazole [Protonix] 40 mg PO DAILY #30 tab 02/20/19 Allergies Allergy/AdvReac Type Severity Reaction Status Date / Time penicillin V potassium Allergy Intermediate rash Unverified 02/11/19 18:05 [From Pen-Vee K] albuterol Allergy Mild Unverified 02/11/19 18:05 amoxicillin [From Augmentin] Allergy Unverified 03/20/19 12:37 clavulanic acid Allergy Unverified 03/20/19 12:37 [From Augmentin] Penicillins Allergy Unverified 03/20/19 12:37 General Stated Complaint: GI Bleed BREE: 2 Review of Systems All systems reviewed & are unremarkable except as noted in HPI and below Constitutional Constitutional: Reports as per HPI, Denies chills and Denies fever(s) Eyes Eyes: Denies blurry vision ENT Ears, Nose, Mouth, and Throat: Denies dizziness, Denies sore throat and Denies throat swelling Cardiovascular Cardiovascular: Denies chest pain and Denies dyspnea Respiratory Respiratory: Denies cough and Denies dyspnea Gastrointestinal Gastrointestinal: Denies abdominal pain, Reports hematochezia, Denies constipation, Denies diarrhea and Denies vomiting Genitourinary Genitourinary: Denies hematuria and Denies dysuria Musculoskeletal Musculoskeletal: Denies back pain and Denies numbness Integumentary/Breasts Skin/Breast: Denies lesions and Denies rash Neurologic Neurologic: Denies dizziness, Denies focal weakness and Denies numbness Allergic/Immunologic Allergic/Immunologic: Denies throat swelling [facility] Medical History Allergic rhinitis (Chronic) Anemia (Chronic) Asthma (Chronic) Atrial fibrillation (Chronic) Diverticula of colon (Acute) Diverticulitis 2011 and 2013 Hypertension, essential, benign (Chronic) Hypothyroidism (Chronic) Nonhealing skin ulcer (Chronic) RLE Obesity (BMI 30.0-34.9) (Acute) Sleep apnea (Chronic) Uses CPAP Vitamin D deficiency (Chronic) Surgical History Colonoscopy - MAC (08/10/17) History of esophagogastroduodenoscopy (EGD) (Chronic) Family History Maternal Grandfather Heart disease Mother Diabetes Hypertension Pancreatic cancer Maternal Grandmother Diabetes Father Head and neck cancer Brain cancer Other Diverticulitis Social History Smoking/Tobacco Use Status: Never Alcohol Intake: never Drug use: Never Substance use type: does not use Do you feel safe at home: Yes Do you feel safe in your relationship?: Yes Exam Const General: cooperative, healthy appearing and no acute distress HENMT Head: normal to inspection Face and sinus: normal facial exam Eyes General: appearance normal, both eyes and all related structures EOM: EOM intact bilaterally Neck Neck: normal visual inspection and No submandibular swelling Lymphatic: no lymphadenopathy noted Chest Chest: normal inspection of the chest and no tenderness Resp Effort & Inspection: normal respiratory effort and able to speak in complete sentences Auscultation: clear to auscultation bilaterally Cardio Rate: regular rate Rhythm: regular rhythm GI Inspection: normal to inspection Palpation: soft, not firm, not rigid and tender in the LLQ Auscultation: normal bowel sounds Rectal Exam - female: heme positive stool Rectal exam heme positive - female: gr oss blood (maroon colored blood) Skin General skin exam: no rashes or lesions noted Neuro General: alert, awake and oriented x3 Cognition: normal cognition Speech: speech normal Motor: muscle tone normal throughout Sensory Exam: no sensory deficits noted Extrem General: normal to inspection, full ROM, normal capillary refill, no calf tenderness bilaterally and no edema Psych Appearance: grossly normal Mental Status: mental status grossly normal Speech and Movement: speech and movement normal Affect: normal affect Course Vital Signs Vital signs: Vital Signs Temperature 97.9 F 03/20/19 20:51 Pulse 99 H 03/20/19 20:51 Respiratory Rate 16 03/20/19 20:51 Blood Pressure 162/98 H 03/20/19 20:51 Pulse Oximetry 99 03/20/19 20:51 Temperature 97.9 F 03/20/19 20:51 Temperature Source Skin 03/20/19 20:51 Pulse 99 H 03/20/19 20:51 Respiratory Rate 16 03/20/19 20:51 Respiratory Effort 03/20/19 20:55 Blood Pressure 162/98 H 03/20/19 20:51 Pulse Oximetry 99 03/20/19 20:51 Pain Level 0 03/20/19 20:51
[2019-03-20 21:35] LABS: Abs Immature Grans 0.02 k/cumm (0.0-0.09); Absolute Basophil Count 0.04 k/cumm (0.0-0.2); Absolute Eosinophil Count 0.29 k/cumm (0.0-0.7); Absolute Lymphocyte Count 1.55 k/cumm (1.2-3.4); Absolute Neutrophil Count 5.67 k/cumm (1.2-6.7); Basophils % 0.5; Eosinophils % 3.5; HCT 34.3 % (36.0-46.0); HGB 10.7 g/dL (12.0-15.5); Immature Grans % 0.2; Mean Corp. HGB Concentration 31.2 g/dL (32.0-36.0); Mean Corpuscular Hemoglobin 27.2 pg (27.0-33.0); Mean Corpuscular Volume 87.1 fL (80-95); Mean Platelet Volume 8.2 fL (8.0-11.0); Monocytes % 7.3; Neutrophils % 69.5; Platelet Count 406 x1000/uL (130-400); RBC 3.94 m/cumm (4.00-5.20); RBC Distribution Width 13.7 % (11.7-14.6); White Blood Cell Count 8.17 k/cumm (4.4-10.8)
--- NOTE | 2019-03-20 21:37 | NUR.NOTE ---
From home with c/o LGI bleed. Pt reports she was seen earlier today for same, was offered admission and declined. Went home and had further bleeding, states would feel more comfortable being admitted. Bleeding began this am at 1100. had 3 BM today, started as BRB, now dark, loose, ?clots. Denies CP, SOB. Denies N/V. Pain in abd on palpation. +BS, abd soft. #20 LAC, labs drawn.
[2019-03-20 21:43] LABS: ALT 33 U/L (14-59); AST 20 U/L (15-37); Albumin 3.5 g/dL (3.4-5.0); Alkaline Phosphatase 134 U/L (46-116); Anion Gap 12.3 mmol/L (3-11); BUN 15 mg/dL (7-18); Bilirubin, Total 0.4 mg/dL (0.2-1.0); CO2 24.7 mmol/L (21.0-32.0); CREATININE 1.02 mg/dL (0.55-1.02); Calcium 8.7 mg/dL (8.5-10.1); Chloride 105 mmol/L (98-107); Estimated GFR 54.56 (mL/min/1.73m2); Glucose 156 mg/dL (74-106); Potassium 3.5 mmol/L (3.5-5.1); Sodium 142 mmol/L (136-145); Total Protein 8.2 g/dL (6.4-8.2)
[2019-03-20] MEDS: Normal Saline 500 ML IV (21:44)
--- NOTE | 2019-03-20 21:47 | W.PM.HP.N ---
Date of service: 03/20/19 Time of Service: 21:47 Assessment and Plan Assessment and plan (1) Lower GI bleed: Start date: 03/20/19 Status: Acute Assessment and plan: This is a 63-year-old lady with acute onset of recurrent lower GI bleed most likely secondary to diverticulosis. There was a question as to whether she had some left lower quadrant abdominal pain therefore a repeat CT scan is being done and if she has any evidence of inflammation she will be started on IV antibiotics. She will be admitted to the ICU for close observation having taken her Eliquis and aspirin today with these being held overnight and heparin to be entertained for the morning at least subcu prophylactic if not infusion. She will need to have [facility] GI and colorectal surgery contacted in the morning to review the case with trending hemoglobins every 4 hours overnight. Her states that this bleed is not as severe as the last. She is hemodynamically stable and in fact was slightly hypertensive and tachycardic from anxiety. She will continue IV hydration. Her usual medications for heart rate control and blood pressure control will be continued. (2) Diverticula of colon: Status: Chronic Assessment and plan: This is a known problem with no evidence of diverticulitis presently except for some slight left lower quadrant abdominal pain in the ED. Follow-up CT and if any signs of diverticulitis, antibiotics will be initiated. (3) Anemia due to acute blood loss: Start date: 03/20/19 Status: Acute Assessment and plan: Trend hemograms every 4 hours and type and screen with transfusion if needed. (4) Atrial fibrillation: Status: Chronic Assessment and plan: Continue heart rate control but hold Eliquis and aspirin tonight with heparin to be entertained in the morning either subcu prophylactically or by infusion depending on recommendations from [facility] as well as reevaluation of her acute bleed. Local surgical consultation will be sought if needed but because of her status care at [facility] this will not be ordered tonight with her situation fairly stable. If she worsens during the night surgical consultation will be sought immediately. Qualifiers: Atrial fibrillation type: unspecified chronic Qualified Code(s): I48.20 - Chronic atrial fibrillation, unspecified (5) H/O: CVA (cerebrovascular accident): Status: Chronic Assessment and plan: This occurred in the fall 2018 and the patient was placed on aspirin with Eliquis at that time. Risk-benefit needs to be assessed as to risk for bleeding with her present anatomy and long-term she needs to make a decision as to resection of the portion of colon that is rebleeding to allow continued anticoagulation to avoid future thromboembolic events. Presently her neurological status is stable. She states that she is always in atrial fibrillation but would be safer to continue anticoagulation if risk can be addressed and resolved. History of Present Illness History of Present Illness Chief Complaint: Blood per rectum Narrative: This is a 63-year-old lady who has a history of persistent atrial fibrillation on Eliquis and then adding aspirin after a thromboembolic loco CVA in the fall 2018. She was seen last month with a GI bleed and since then has been seen by [facility] gastroenterology and is planning to see a colorectal surgeon for possible resection of a lucia diverticulitis of her sigmoid colon. She began to have bright red blood with burgundy stool which is not as severe as her previous bleed which was all bright red blood early the morning of admission. She was complaining of some left lower quadrant abdominal pain in the emergency room but at the time I examined her she was not having any focalizing abdominal pain. She took her last Eliquis the morning of admission and aspirin the morning of admission. She denies any epigastric discomfort or emesis. He is having no chest pain or shortness of breath. She is slightly anxious with her blood pressure elevated and pulse rate increased in the ED. She is having a repeat CT scan to assure reassure no acute diverticulitis or abscess. She denies fever and she has no elevation in her white blood cell count. She did drop her hemoglobin by 1 g/dl since this morning when she was first seen in the ED. She returned because of continued bleeding. Review of Systems Narrative: 13 point review of systems otherwise unrevealing or stable. [facility] Medical History Allergic rhinitis (Chronic) Anemia (Chronic) Asthma (Chronic) Atrial fibrillation (Chronic) Diverticula of colon (Acute) Diverticulitis 2011 and 2013 Hypertension, essential, benign (Chronic) Hypothyroidism (Chronic) Nonhealing skin ulcer (Chronic) RLE Obesity (BMI 30.0-34.9) (Acute) Sleep apnea (Chronic) Uses CPAP Vitamin D deficiency (Chronic) Surgical History Colonoscopy - MAC (08/10/17) History of esophagogastroduodenoscopy (EGD) (Chronic) Family History Maternal Grandfather Heart disease Mother Diabetes Hypertension Pancreatic cancer Maternal Grandmother Diabetes Father Head and neck cancer Brain cancer Other Diverticulitis Social History Smoking/Tobacco Use Status: Never Alcohol Intake: never Drug use: Never Substance use type: does not use Do you feel safe at home: Yes Do you feel safe in your relationship?: Yes Meds Home Medications and Allergies Home Medications Medication Instructions Recorded Confirmed Type Eliquis 5 mg PO BID 01/29/14 03/20/19 History Flovent HFA 2 puff INHALATION BID 01/29/14 03/20/19 History metoprolol tartrate 50 mg PO BID 01/29/14 03/20/19 History levothyroxine 50 mcg PO DAILY@0400 01/30/19 03/20/19 History atorvastatin 20 mg PO QHS #30 tab 01/31/19 03/20/19 Rx pantoprazole [Protonix] 40 mg PO DAILY #30 tab 02/20/19 03/20/19 Rx aspirin 81 mg PO DAILY 03/20/19 03/20/19 History Allergies Allergy/AdvReac Type Severity Reaction Status Date / Time penicillin V potassium Allergy Intermediate rash Unverified 02/11/19 18:05 [From Pen-Vee K] albuterol Allergy Mild Unverified 02/11/19 18:05 amoxicillin [From Augmentin] Allergy Unverified 03/20/19 12:37 clavulanic acid Allergy Unverified 03/20/19 12:37 [From Augmentin] Penicillins Allergy Unverified 03/20/19 12:37 Exam Narrative Exam Narrative: General: Patient is anxious but in no acute distress. She is alert and oriented x3. She is moderately obese but appears well-developed and well-nourished. HEENT: Normocephalic with eyes revealing pupils equal and reactive to light symmetrically, extraocular movement intact and sclera anicteric. Oropharynx with moist pink mucosa. Good dentition. Neck: No JVD, supple and no auscultated bruits. Lungs: Clear to auscultation with fair aeration and no adventitious sounds. Back: Stooped posture with no tenderness. Heart: Irregular irregular rhythm with normal rate at the time of my exam but being tachycardic in the ED. No appreciable murmurs or gallops. Breast: Exam deferred. Abdomen: Obese contour, soft and no palpable hepatosplenomegaly. No focalizing palpable tenderness or guarding. Bowel sounds are positive in all quadrants. Genitalia and rectal: Exam deferred. Patient did have burgundy and bloody stools in the ED. Extremities: Nonpitting edema both lower extremities worse on the left. Good capillary refill with no clubbing or cyanosis. Peripheral pulses intact. Skin: Slightly pale, warm and dry. No rashes noted. Neuro: Cranial nerves II through XII grossly intact and no focalizing motor deficits. Patient states that she does have some residual from her CVA with trouble writing at times but no dense focal neurological deficits. Psych: Slightly anxious, good eye contact and normal variation of affect. Normal thought processes and remote and recent memory intact. Results Imaging Imaging Studies: Exam(s) a MRI:MR brain wo EXAM: MR BRAIN WO CLINICAL HISTORY: TIA, SLURRED SPEECH, RT ARM NUMBNESS. TECHNIQUE: Multiplanar multisequence MRI was performed. COMPARISON: CT BRAIN NECK CTA from 01/29/2019 FINDINGS: There is a tiny focus of restricted diffusion in the left side of the loco slightly to the left of midline. Findings are consistent with an acute pontine lacunar infarct. No other areas of restricted diffusion are seen. A few scattered high signal lesions in the white matter consistent with sequela of microvascular disease. There is no significant atrophy or ventricular dilatation. The vascular flow voids appear intact. The sinuses, orbits and mastoid air cells are unremarkable. IMPRESSION: Tiny acute infarct in the loco. Dictated By: Parveen Cabezas M.D. 02/01/19 1041 Exam(s) [id number] CT:Abd/Pelvis W SYMPTOMS/DIAGNOSIS: PELVIC PAIN, H/O DIVERTICULITIS CT OF THE ABDOMEN AND PELVIS: Images were performed from the lung bases through the ischial tuberosities after IV contrast. There are diverticula seen throughout the colon, most numerous in the sigmoid region. There is marked inflammation surrounding the mid sigmoid. There is a small amount of free fluid in the pelvis. There is no evidence of abscess or free air. There is no abnormal bowel dilatation. The bladder appears intact. The uterus and ovaries are unremarkable. The lung bases are clear. The liver, gallbladder, spleen, adrenals, pancreas and kidneys are unremarkable. Aorta is normal in diameter. IMPRESSION: Sigmoid diverticulitis. No evidence of perforation or abscess. CC: Dictated By: PARVEEN CABEZAS M.D. 01/30/14 1418 <Electronically signed by PARVEEN CABEZAS M.D.> 01/30/14 1523 Labs Result diagrams: 03/20/19 21:05 03/20/19 21:05 Labs: Laboratory Results - last 24 hr 03/20/19 03/20/19 21:05 21:05 WBC 8.17 RBC 3.94 L Hgb 10.7 L Hct 34.3 L MCV 87.1 MCH 27.2 MCHC 31.2 L RDW 13.7 Plt Count 406 H MPV 8.2 Immature Gran % 0.2 Neutrophils % 69.5 Lymphocytes % 19.0 Monocytes % 7.3 Eosinophils % 3.5 Basophils % 0.5 Absolute Neutrophils 5.67 Absolute Lymphocytes 1.55 Absolute Monocytes 0.60 Absolute Eosinophils 0.29 Absolute Basophils 0.04 Sodium 142 Potassium 3.5 Chloride 105 Carbon Dioxide 24.7 Anion Gap 12.3 H BUN 15 Creatinine 1.02 Estimated GFR/1.73 m2 54.56 Glucose 156 H Calcium 8.7 Total Bilirubin 0.4 AST 20 ALT 33 Alkaline Phosphatase 134 H Total Protein 8.2 Albumin 3.5 Last Vital Signs Temp 36.6 C 03/20/19 20:51 Pulse 99 H 03/20/19 20:51 Resp 16 03/20/19 20:51 BP 162/98 H 03/20/19 20:51 Pulse Ox 99 03/20/19 20:51
--- NOTE | 2019-03-20 22:05 | DI.CT_ITS ---
EXAM: CT ABDOMEN PELVIS W CLINICAL HISTORY: LLQ ABD PAIN, GI BLEEDING, R/O DIVERTICULITIS TECHNIQUE: Post IV and without oral contrast. COMPARISON: No exams were available for comparison FINDINGS: The heart is enlarged. The lung bases are clear. The liver, gallbladder, spleen, pancreas, kidneys an d adrenals are unremarkable. The appendix is normal. There is a normal quantity of stool. There are n umerous diverticula seen in the descending and sigmoid colon. There is mild stranding in the fat surr ounding the junction of the descending and sigmoid colon, consistent with mild diverticulitis. There is no evidence of perforation, abscess or free fluid. There is a small uterine fibroid. The ovaries a re unremarkable. The bladder is unremarkable. Atherosclerotic changes are seen in the aorta and iliac arteries. There is no evidence of an aneurysm. IMPRESSION: Mild diverticulitis at the junction of the sigmoid and descending colon.
[2019-03-20] MEDS: Omnipaque 350 MG/ML 100 ML BTL IJ (22:06)
--- NOTE | 2019-03-20 22:11 | HPE_ITS ---
Date of service: 03/20/19 Time of Service: 22:11 [facility] Medical History Allergic rhinitis (Chronic) Anemia (Chronic) Asthma (Chronic) Atrial fibrillation (Chronic) Diverticula of colon (Acute) Diverticulitis 2011 and 2013 Hypertension, essential, benign (Chronic) Hypothyroidism (Chronic) Nonhealing skin ulcer (Chronic) RLE Obesity (BMI 30.0-34.9) (Acute) Sleep apnea (Chronic) Uses CPAP Vitamin D deficiency (Chronic) Surgical History Colonoscopy - MAC (08/10/17) History of esophagogastroduodenoscopy (EGD) (Chronic) Family History Maternal Grandfather Heart disease Mother Diabetes Hypertension Pancreatic cancer Maternal Grandmother Diabetes Father Head and neck cancer Brain cancer Other Diverticulitis Social History Smoking/Tobacco Use Status: Never Alcohol Intake: never Drug use: Never Substance use type: does not use Do you feel safe at home: Yes Do you feel safe in your relationship?: Yes Meds Home Medications and Allergies Home Medications Medication Instructions Recorded Confirmed Type Eliquis 5 mg PO BID 01/29/14 03/20/19 History Flovent HFA 2 puff INHALATION BID 01/29/14 03/20/19 History metoprolol tartrate 50 mg PO BID 01/29/14 03/20/19 History levothyroxine 50 mcg PO DAILY@0400 01/30/19 03/20/19 History atorvastatin 20 mg PO QHS #30 tab 01/31/19 03/20/19 Rx pantoprazole [Protonix] 40 mg PO DAILY #30 tab 02/20/19 03/20/19 Rx aspirin 81 mg PO DAILY 03/20/19 03/20/19 History Allergies Allergy/AdvReac Type Severity Reaction Status Date / Time penicillin V potassium Allergy Intermediate rash Unverified 02/11/19 18:05 [From Pen-Vee K] albuterol Allergy Mild Unverified 02/11/19 18:05 amoxicillin [From Augmentin] Allergy Unverified 03/20/19 12:37 clavulanic acid Allergy Unverified 03/20/19 12:37 [From Augmentin] Penicillins Allergy Unverified 03/20/19 12:37 Results Labs Result diagrams: 03/20/19 21:05 03/20/19 21:05 Labs: Laboratory Results - last 24 hr 03/20/19 03/20/19 21:05 21:05 WBC 8.17 RBC 3.94 L Hgb 10.7 L Hct 34.3 L MCV 87.1 MCH 27.2 MCHC 31.2 L RDW 13.7 Plt Count 406 H MPV 8.2 Immature Gran % 0.2 Neutrophils % 69.5 Lymphocytes % 19.0 Monocytes % 7.3 Eosinophils % 3.5 Basophils % 0.5 Absolute Neutrophils 5.67 Absolute Lymphocytes 1.55 Absolute Monocytes 0.60 Absolute Eosinophils 0.29 Absolute Basophils 0.04 Sodium 142 Potassium 3.5 Chloride 105 Carbon Dioxide 24.7 Anion Gap 12.3 H BUN 15 Creatinine 1.02 Estimated GFR/1.73 m2 54.56 Glucose 156 H Calcium 8.7 Total Bilirubin 0.4 AST 20 ALT 33 Alkaline Phosphatase 134 H Total Protein 8.2 Albumin 3.5 Last Vital Signs Temp 36.6 C 03/20/19 20:51 Pulse 99 H 03/20/19 20:51 Resp 16 03/20/19 20:51 BP 162/98 H 03/20/19 20:51 Pulse Ox 99 03/20/19 20:51
[2019-03-20 22:23] VITALS: BP 152/96; PULSE 95; RESP 16; TEMP 37; O2SAT 97
[2019-03-20 22:36] LABS: INR 1.1 (0.9-1.1)
--- NOTE | 2019-03-20 23:04 | DI.VRAD_ITS ---
PROCEDURE INFORMATION: Exam: CT Abdomen And Pelvis With Contrast Exam date and time: 03/20/2019 9:17 PM Age: 63 years old Clinical history: Abdominal pain; Localized; Left lower quadrant (llq); Patient HX: Llq pain, gi bleeding, R/O diverticulitis; Additional info: HX of diverticula and lower gi bleed TECHNIQUE: Imaging protocol: Computed tomography of the abdomen and pelvis with intravenous contrast. Radiation optimization: All CT scans at this facility use at least one of these dose optimization techniques: automated exposure control; mA and/or kV adjustment per patient size (includes targeted exams where dose is matched to clinical indication); or iterative reconstruction. Contrast material: OMNIPAQUE 350; Contrast volume: 100 ml; Contrast route: IV; COMPARISON: CT ABD PELVIS WITH CONTRAST 08/07/2017 11:50 AM FINDINGS: Liver: Normal. No mass. Gallbladder and bile ducts: Normal. No calcified stones. No ductal dilation. Pancreas: Pancreatic atrophy. Spleen: Normal. No splenomegaly. Adrenals: Normal. No mass. Kidneys and ureters: Normal. No hydronephrosis. Stomach and bowel: Mild proximal sigmoid colon edema and surrounding inflammation in the region of multiple diverticulum. This is consistent with mild acute diverticulitis. No abscess. No perforation. No free fluid. No free air. Appendix: No evidence of appendicitis. Intraperitoneal space: See Stomach And Bowel Finding. Vasculature: Unremarkable. No abdominal aortic aneurysm. Lymph nodes: Unremarkable. No enlarged lymph nodes. Bladder: Unremarkable as visualized. Reproductive: Nonspecific enhancing nodule in the superior uterine body measuring 11 mm. Nonemergent pelvic ultrasound may be helpful for further delineation. This may be a small fibroid. Bones/joints: Unremarkable. No acute fracture. Soft tissues: Unremarkable. IMPRESSION: 1. Mild proximal sigmoid colon acute diverticulitis. 2. Nonspecific enhancing 11 mm focus in the superior uterine body. Recommend non emergent pelvic ultrasound. Dictated and Authenticated by: Moshe Harley MD. Ordering:JULIUS King MD
[2019-03-20] MEDS: CIPROFLOXACIN 400 MG/200 ML BAG 200 MG IVPB (23:12)
[2019-03-20 23:39] VITALS: TEMP 37
[2019-03-21] VITALS (23 sets, daily range): BP systolic 125–145; BP diastolic 63–92; PULSE 67–119; RESP 9–29; TEMP 36.7–36.8; O2SAT 97–109
[2019-03-21] MEDS: Atorvastatin 20 MG TAB PO (00:05)
[2019-03-21] MEDS: Metoprolol 50 MG TAB PO ×3 (00:06→20:15)
[2019-03-21] MEDS: Normal Saline 1,000 ML 125 ML IV (00:07)
[2019-03-21] MEDS: metroNIDAZOLE 500 MG/100 ML BAG 100 MG IVPB ×4 (00:07→23:30)
[2019-03-21] MEDS: Metoprolol 50 MG TAB (00:08)
[2019-03-21 00:22] LABS: HCT 30.4 % (36.0-46.0); HGB 9.6 g/dL (12.0-15.5)
[2019-03-21] MEDS: Ondansetron 4 MG/2 ML VIAL (01:50)
[2019-03-21] MEDS: Levothyroxine 50 MCG TAB PO (04:03)
[2019-03-21] MEDS: Pantoprazole 40 MG VIAL IVP (08:50)
[2019-03-21] MEDS: Normal Saline Flush 10 ML SYR IVP (08:50)
[2019-03-21] MEDS: Mometasone 220 MCG 14 DOSE INHALER 2 PUFF IH ×2 (09:51→20:14)
[2019-03-21 10:07] LABS: HCT 27.6 % (36.0-46.0); HGB 8.8 g/dL (12.0-15.5)
[2019-03-21 10:09] LABS: Calcium 8.1 mg/dL (8.5-10.1)
[2019-03-21 10:10] LABS: ALT 24 U/L (14-59); AST 15 U/L (15-37); Albumin 2.9 g/dL (3.4-5.0); Alkaline Phosphatase 109 U/L (46-116); Anion Gap 5.2 mmol/L (3-11); BUN 12 mg/dL (7-18); Bilirubin, Total 0.4 mg/dL (0.2-1.0); CO2 23.8 mmol/L (21.0-32.0); CREATININE 0.89 mg/dL (0.55-1.02); Chloride 108 mmol/L (98-107); Glucose 102 mg/dL (74-106); Potassium 3.6 mmol/L (3.5-5.1); Sodium 137 mmol/L (136-145); Total Protein 6.9 g/dL (6.4-8.2)
[2019-03-21] MEDS: CIPROFLOXACIN 400 MG/200 ML BAG 200 MG IVPB ×2 (10:18→22:15)
--- NOTE | 2019-03-21 10:35 | PDOC.CMIN ---
- If Service Date Differs Date of service: 03/21/19 Time of Service: 10:35 Care Management Initial Assess REASON FOR HOSPITALIZATION:: Lower Gi Bleed PAST MEDICAL HISTORY/PAST SURGICAL HISTORY:: Medical History: Allergic rhinitis (Chronic). Anemia (Chronic). Asthma (Chronic). Atrial fibrillation (Chronic). Diverticula of colon (Acute). Diverticulitis. 2011 and 2013. Hypertension, essential, benign (Chronic). Hypothyroidism (Chronic). Nonhealing skin ulcer (Chronic). RLE. Obesity (BMI 30.0-34.9) (Acute). Sleep apnea (Chronic). Uses CPAP. Vitamin D deficiency (Chronic). Surgical History: Colonoscopy - MAC (08/10/17). History of esophagogastroduodenoscopy (EGD) (Chronic) PREVIOUS FUNCTIONAL STATUS/SOCIAL/FAMILY SUPPORTS:: Adali lives in a single family home in [place] with her Jose. They have 2 adult daughters who live nearby and 3 adult grandchildren. 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 She is independent at baseline and receives no community services. CURRENT FUNCTIONAL STATUS:: Adali was sitting up in bed visiting with her when CM met with her. Prashanth was pleasant and friendly and quickly engaged in conversation. Adali shared details of her recent medical history which includes a stroke in January followed by a GI bleed secondary to diverticulosis and now a second GI bleed presumably from diverticulitis. After her last hospital stay she saw mail room at [facility] who referred her to a colo-rectal surgeon. Her appointmeny is on 04/04/19. Despite several hospital stays, Adali remains in good spirits and voices optimism about recovering and having a better year in 2020. ADVANCE DIRECTIVES:: none on file Has patient been provided with information about the portal?: Yes Did the patient sign up for the portal?: No CODE STATUS:: Full Code INSURANCE COVERAGE / FINANCIAL ISSUES:: BC/BS CURRENT HOME/COMMUNITY SERVICES/EQUIPMENT:: none currently PRIMARY CARE PHYSICIAN:: Avi Castillo POTENTIAL DISCHARGE NEEDS:: Follow up with PCP and discharge plan of care PATIENT/FAMILY EDUCATION NEEDS:: Discharge plan, limitations, follow up plan, Ask Me Three TRANSPORTATION:: via private vehicle with when ready. PLAN:: Adali will likely be discharged home with no new services. She will follow up with her PCP and the colo-rectal surgeon at [facility]. CM will continue to support patient, family and discharge needs.
--- NOTE | 2019-03-21 11:01 | PGE_ITS ---
Date of Service Date of service: 03/21/19 Time of Service: 11:01 Assessment and Plan Assessment and plan (1) Diverticulitis: Status: Chronic Assessment and plan: Patient is requesting something to eat. I will try her on some clear liquids as tolerated. She will continue on IV Flagyl and ciprofloxacin. We will monitor serial hemograms. She is agreeable to transfusion as needed. I explained her that would not transfuse her unless her hemoglobin drops below 8. She will remain off anticoagulation for the time being until we can get to the source for bleeding. [facility] will be called tomorrow to inquire about transfer for a multi-specialty evaluation including gastroenterology and colorectal surgery and interventional radiology. If she has worsening bleeding today necessitating resuscitation then I will make a call to [facility] to arrange transfer to a medical intensive care unit for emergent definitive procedure to identify and treat her bleeding. (2) Lower GI bleed: Status: Acute Assessment and plan: As above (3) H/O: CVA (cerebrovascular accident): Status: Chronic Assessment and plan: Currently patient is not a candidate for anticoagulation. I spoke with Dr. Gaitan the patient's neurologist without an official consultation. Dr. Gaitan indicated that the patient needs a nticoagulation for stroke protection but she understands that in the setting of an acute GI bleeding the patient cannot tolerate any form of current anticoagulation. She advised me that it is up to GI to determine when safe to resume her anticoagulation. (4) Atrial fibrillation: Status: Chronic Assessment and plan: Patient will continue her Lopressor for atrial fibrillation rate control but remain off anticoagulation at this time. Qualifiers: Atrial fibrillation type: unspecified chronic Qualified Code(s): I48.20 - Chronic atrial fibrillation, unspecified Subjective Subjective Interval history since last seen: 63-year-old female with a history of chronic atrial fibrillation treated with Eliquis who had a pontine stroke in January 2019 and subsequently was placed on aspirin along with her Eliquis. She has a history of diverticulosis and has been hospitalized in the recent past because of lower GI bleeding. She had a colonoscopy that demonstrated diverticulosis but the source of bleeding cannot be found. She also has comorbidities including asthma and obstructive sleep apnea and hypothyroidism. She was admitted last night with recurrent lower GI bleeding. She initially presented to the emergency department in the morning with a single episode of bright red blood per rectum followed by multiple small episodes of blood. The time she arrived emergency department she was asymptomatic and had no abdominal pain and had no further rectal bleeding and had no fever. Her hemoglobin was 11 g. She was monitored in the emergency department and after discussion with the ER personnel about admission versus returning home she chose to return home. She was instructed to continue her regular medications increase her fiber and stool softeners. Patient has already met with Dr. Ron Gilmore her GI specialist down at [facility] after her last admission for GI bleeding in which the colonoscopy did not find the source of her bleed. Dr. Gilmore has referred her to Dr. Sagar Morgan, colorectal surgeon at [facility] for which the patient has an appointment on April 04, 2019. After leaving the emergency department early yesterday afternoon she read presented last night with recurrent bleeding. She has had several bloody bowel movements of maroon color along with bright red rectal bleeding. Her hemoglobin when she left the emergency department was 11 g but upon re-presentation to the emergency department her hemoglobin was 10.7 g. She denied any abdominal pain or fever chills but according to Dr. Christine Agee's exam she had some mild tenderness in her left lower quadrant. CT scan was obtained and was notable for acute proximal sigmoid: Diverticulitis without abscess. It was decided to admit her and started on IV ciprofloxacin and Flagyl. Dr. Mendoza the night hospitalist admit the patient and put her in the intensive care unit. Serial hemograms were obtained overnight and she dropped slightly to 9.6 g at midnight and was 8.8 at 530 and is now 8.6 g. I discussed her case at length with her and her and they informed me that they would like to be referred to [facility] if possible. I called Dr. Ron Gilmore her trading assistant. Because of the complexity of her case given her recent stroke despite being on Eliquis chronically for atrial fibrillation and having the recurrent diverticular bleeding from the aspirin and Eliquis combination he feels she would be best served by being evaluated by multiple specialties at [facility] including gastroenterology and colorectal surgery as well as interventional radiology. I called the transfer center to try to arrange transfer to [facility] but unfortunately they had no available beds were only taking patients that needed emergency surgery today. As the patient was hemodynamically stable at the time of my phone call her rectal bleeding seemed to have tapered off and her hemoglobin seemed to have plateaued it was decided that she did not need emergent transfer and she would not be qualified for admission to the medical ICU at [facility]. I spoke with the patient and her explained this bed situation at [facility] and offered to make a referral to the [facility]. I explained to them that we could acutely manage her condition by monitoring her hemogram and transfusing her as needed and that we would avoid reinitiation of any anticoagulation until we find the source of the bleed. We would continue to treat her diverticulitis with IV antibiotics. They were comfortable with that decision and chose to stay at [facility] with the request at [facility] be called tomorrow morning. If [facility] does not have any bed availability tomorrow then they would like a referral to another tertiary care center. Exam Narrative Exam Narrative: Late middle-aged female who is sitting up in bed in no acute distress. She is alert and oriented to person place time circumstance. Lungs are clear to auscultation without wheezes rales or rhonchi. Heart is irregularly irregular without appreciable murmur rub or gallop Abdomen is obese soft nontender. She has no rebound tenderness and no guarding even in the left lower quadrant. There is no palpable masses and no organomegaly and no bruits. Lower extremities without peripheral cyanosis or edema. Neurologic exam is grossly intact. Rectal exam was deferred as this was performed in the emergency department. Objective Objective Clinical Data: Abnormal lab results 03/20/19 03/20/19 03/21/19 Range/Units 21:05 21:05 00:10 RBC 3.94 L (4.00-5.20) m/cumm Hgb 10.7 L 9.6 L (12.0-15.5) g/dL Hct 34.3 L 30.4 L (36.0-46.0) % MCHC 31.2 L (32.0-36.0) g/dL Plt Count 406 H (130-400) x1000/uL Chloride (98-107) mmol/L Anion Gap 12.3 H (3-11) mmol/L Glucose 156 H (74-106) mg/dL Calcium (8.5-10.1) mg/dL Alkaline Phosphatase 134 H (46-116) U/L Albumin (3.4-5.0) g/dL 03/21/19 03/21/19 Range/Units 05:20 05:20 RBC (4.00-5.20) m/cumm Hgb 8.8 L (12.0-15.5) g/dL Hct 27.6 L (36.0-46.0) % MCHC (32.0-36.0) g/dL Plt Count (130-400) x1000/uL Chloride 108 H (98-107) mmol/L Anion Gap (3-11) mmol/L Glucose (74-106) mg/dL Calcium 8.1 L (8.5-10.1) mg/dL Alkaline Phosphatase (46-116) U/L Albumin 2.9 L (3.4-5.0) g/dL Vital Signs Temperature 36.7 C 03/21/19 08:18 Temperature Source Temporal Artery Scan 03/21/19 08:18 Pulse 101 H 03/21/19 07:38 Pulse 119 H 03/21/19 07:38 Respiratory Rate 18 03/21/19 07:38 Respiratory Effort 03/21/19 08:18 Respiratory Depth Normal 03/21/19 08:18 Respiratory Pattern Normal 03/21/19 08:18 Blood Pressure 145/92 H 03/21/19 07:38 Blood Pressure Mean 105 03/21/19 07:38 Pulse Oximetry 97 03/21/19 09:52 Oxygen Delivery Method Room Air 03/21/19 09:52 Oxygen Flow Rate 0 03/21/19 09:52 Pain Level 0 03/20/19 23:39 Intake & Output 03/20/19 03/20/19 03/21/19 11:59 23:59 11:59 Intake Total 500 / 500 1010 / 1010 Balance 500 / 500 1010 / 1010 Weight 37 kg Intake: IV 500 / 500 1010 / 1010 Other: Stool Occult Blood Positive Stool Size Moderate Stool Characteristics Black Bloody Emesis Description Bright Red Blood Black Laboratory Results WBC 8.17 k/cumm (4.4-10.8) 03/20/19 21:05 RBC 3.94 m/cumm (4.00-5.20) L 03/20/19 21:05 Hgb 8.8 g/dL (12.0-15.5) L 03/21/19 05:20 Hct 27.6 % (36.0-46.0) L 03/21/19 05:20 MCV 87.1 fL (80-95) 03/20/19 21:05 MCH 27.2 pg (27.0-33.0) 03/20/19 21:05 MCHC 31.2 g/dL (32.0-36.0) L 03/20/19 21:05 RDW 13.7 % (11.7-14.6) 03/20/19 21:05 Plt Count 406 x1000/uL (130-400) H 03/20/19 21:05 MPV 8.2 fL (8.0-11.0) 03/20/19 21:05 Immature Gran % 0.2 03/20/19 21:05 Neutrophils % 69.5 03/20/19 21:05 Lymphocytes % 19.0 03/20/19 21:05 Monocytes % 7.3 03/20/19 21:05 Eosinophils % 3.5 03/20/19 21:05 Basophils % 0.5 03/20/19 21:05 Absolute Neutrophils 5.67 k/cumm (1.2-6.7) 03/20/19 21:05 Absolute Lymphocytes 1.55 k/cumm (1.2-3.4) 03/20/19 21:05 Absolute Monocytes 0.60 k/cumm (0.11-0.7) 03/20/19 21:05 Absolute Eosinophils 0.29 k/cumm (0.0-0.7) 03/20/19 21:05 Absolute Basophils 0.04 k/cumm (0.0-0.2) 03/20/19 21:05 PT 11.0 sec (9.3-11.0) 03/20/19 21:05 INR 1.1 (0.9-1.1) 03/20/19 21:05 Sodium 137 mmol/L (136-145) 03/21/19 05:20 Potassium 3.6 mmol/L (3.5-5.1) 03/21/19 05:20 Chloride 108 mmol/L (98-107) H 03/21/19 05:20 Carbon Dioxide 23.8 mmol/L (21.0-32.0) 03/21/19 05:20 Anion Gap 5.2 mmol/L (3-11) 03/21/19 05:20 BUN 12 mg/dL (7-18) 03/21/19 05:20 Creatinine 0.89 mg/dL (0.55-1.02) 03/21/19 05:20 Estimated GFR/1.73 m2 >= 60.00 (mL/min/1.73m2) 03/21/19 05:20 Glucose 102 mg/dL (74-106) D 03/21/19 05:20 Calcium 8.1 mg/dL (8.5-10.1) L 03/21/19 05:20 Total Bilirubin 0.4 mg/dL (0.2-1.0) 03/21/19 05:20 AST 15 U/L (15-37) 03/21/19 05:20 ALT 24 U/L (14-59) 03/21/19 05:20 Alkaline Phosphatase 109 U/L (46-116) 03/21/19 05:20 Total Protein 6.9 g/dL (6.4-8.2) 03/21/19 05:20 Albumin 2.9 g/dL (3.4-5.0) L 03/21/19 05:20
[2019-03-21 11:15] LABS: HCT 27.8 % (36.0-46.0); HGB 8.6 g/dL (12.0-15.5)
[2019-03-21] MEDS: POTASSIUM CHLORIDE/0.9% NACL 1,000 ML 100 MEQ IV ×2 (11:39→23:30)
--- NOTE | 2019-03-21 14:28 | CHAPLAIN ---
Adali was sitting up in bed, her was visiting with her. I know Adali from her job at the [employer]. She told me that she will likely be transferred to [facility], and is waiting to hear that a bed is available. Adali said she's had similar gastro problems but not to this degree. She is a member of [employer] and gave me permission to call and ask someone to visit her. Fr. Moe visited this afternoon. I prayed with Adali and gave her a prayer shawl. She seems apprehensive about that is ahead of her, but believes that going to [facility] is right thing to do. Fr. Moe let me know after his visit, the Adali won't likely be transferred until tomorrow.
--- NOTE | 2019-03-21 15:35 | PHARADMIT ---
Admission Pharmacy Clinical Review lower GI bleed, sigmoid lucia-diverticulosis, PAF, Anemia Code Status Full Code Current Weight 37 kg Renally Cleared and Narrow Therapeutic Index Meds Crcl ~37 mL/min cipro renally dosed Q12H QTc Value / Action Taken none BP Control, Fever BP 145/92 afebrile Electrolytes reviewed Cl 108 DVT Prophylaxis none- suspected bleed Opiate Usage / Scheduled Bowel Regimen Ordered no/no Plt/SCr for Heparin / Enoxaparin plt 406 SCr 0.89 INR for Warfarin n/a H/H stable, WBC/Bands h/h 8.6/27.8 WBC 8.17 Antibiotic appropriateness cipro and metronidazole Cultures and Sensitivities none Surgical ABX d/c within 24 hr n/a DM control / Insulin Dosing BG 102 none Heart Failure (Check EF%) (JANIE's, B-Block, Diuretics) metoprolol IV to PO Switch most PO meds on hold Home Meds Reviewed aspirin may enhance the adverse/toxic effect of apixaban (increased bleed risk), consider risks vs. benefits Home Meds Not Ordered aspirin and apixaban (due to bleed), flovent (mometasone for substitution) Comments
[2019-03-21 16:25] LABS: HCT 29.4 % (36.0-46.0); HGB 9.1 g/dL (12.0-15.5)
[2019-03-21 22:17] LABS: HCT 28.1 % (36.0-46.0); HGB 8.4 g/dL (12.0-15.5)
[2019-03-22] VITALS (30 sets, daily range): BP systolic 116–133; BP diastolic 63–98; PULSE 60–122; RESP 0–33; TEMP 36.6–37; O2SAT 96–99
[2019-03-22] MEDS: Levothyroxine 50 MCG TAB PO (06:25)
[2019-03-22 07:10] LABS: Abs Immature Grans 0.01 k/cumm (0.0-0.09); Absolute Basophil Count 0.03 k/cumm (0.0-0.2); Absolute Eosinophil Count 0.32 k/cumm (0.0-0.7); Absolute Lymphocyte Count 1.15 k/cumm (1.2-3.4); Absolute Monocyte Count 0.53 k/cumm (0.11-0.7); Absolute Neutrophil Count 4.37 k/cumm (1.2-6.7); Basophils % 0.5; HCT 26.2 % (36.0-46.0); HGB 7.9 g/dL (12.0-15.5); Immature Grans % 0.2; Lymphocytes % 17.9; Mean Corp. HGB Concentration 30.2 g/dL (32.0-36.0); Mean Corpuscular Hemoglobin 26.6 pg (27.0-33.0); Mean Corpuscular Volume 88.2 fL (80-95); Mean Platelet Volume 8.1 fL (8.0-11.0); Monocytes % 8.3; Neutrophils % 68.1; Platelet Count 344 x1000/uL (130-400); RBC 2.97 m/cumm (4.00-5.20); White Blood Cell Count 6.41 k/cumm (4.4-10.8)
[2019-03-22 07:15] LABS: Anion Gap 10.4 mmol/L (3-11); BUN 11 mg/dL (7-18); CO2 22.6 mmol/L (21.0-32.0); Calcium 8.5 mg/dL (8.5-10.1); Chloride 110 mmol/L (98-107); Glucose 97 mg/dL (74-106); Potassium 3.8 mmol/L (3.5-5.1); Sodium 143 mmol/L (136-145)
[2019-03-22 07:40] LABS: Diff Comment RBC Morph Reviewed; Hypochromasia 2+; Polychromasia Present
[2019-03-22] MEDS: Mometasone 220 MCG 14 DOSE INHALER 2 PUFF IH (08:10)
[2019-03-22] MEDS: Metoprolol 50 MG TAB PO (08:45)
[2019-03-22] MEDS: Normal Saline Flush 10 ML SYR IVP (08:45)
[2019-03-22] MEDS: Pantoprazole 40 MG VIAL IVP (08:45)
[2019-03-22] MEDS: metroNIDAZOLE 500 MG/100 ML BAG 100 MG IVPB ×2 (08:47→16:31)
[2019-03-22] MEDS: CIPROFLOXACIN 400 MG/200 ML BAG 200 MG IVPB (10:28)
--- NOTE | 2019-03-22 11:51 | W.NUTCONSULT ---
Date of service: 03/22/19 Time of Service: 11:51 Nutritional Consult ASSESSMENT: 63 year old female in ICU and admitted with GI bleed and diverticulitis. Has order for Regular Diet but nursing reports only taking in clear liquids at this time. Weight indicates mild obesity. Currently not considered at nutritional risk. If remains on clear liquids > 5 days, will make appropriate recommendations. sreen by Beatriz Jiménez MS, RD. MONITORING AND EVALUATION: will monitor weight, po intake trends and intervene as needed Time Spent in Nutritional Counseling and Treatment: 0 time spent face to face
[2019-03-22] MEDS: POTASSIUM CHLORIDE/0.9% NACL 1,000 ML 100 MEQ IV (12:47)
[2019-03-22 14:11] LABS: HCT 28.2 % (36.0-46.0); HGB 8.5 g/dL (12.0-15.5)
--- NOTE | 2019-03-22 16:22 | HOME_ITS ---
Home Ventilator Equipment Home care company [employer] Reason: Obstructive Sleep Apnea Make: Respironics Model: Dreamstation Mask type: Face mask Mask size: Medium Mode: CPAP Settings: Auto-titrate Min 11/ Max 14 Oxygen bleed in (lpm): 21 Condition: Good Date last checked: 03/22/19 Year of last sleep study: Compliance Daily Comments:
--- NOTE | 2019-03-22 17:36 | PDOC.CMPRO ---
- If Service Date Differs Date of service: 03/22/19 Time of Service: 17:36 Care Management Progress Note S/O: Adali was lying in bed when CM met with her. Her , Ernie, was by her side. She had tears in her eyes when telling CM that per MD, she would be transferring to [facility]. She stated that she was very overwhelmed, but she is happy to go to [facility] where she will have access to specialists. She is pleasant and engaged, but reports being nervous about the outcome. Her and children are identified by Adali as strong supports in her life, which is a comfort to her during this difficult time. CM will continue to follow. A: Adali is a 63 year old female admitted to [facility] on 03/20/2019 for GI Bleed. P: Adali will be transferred to [facility] by ambulance for surgical consultation for hemicolectomy so that she can resume anticoagulation. CM will continue to support patient, family and staff with discharge planning considerations.
--- NOTE | 2019-03-22 17:44 | W.PM.DS.N ---
Date of service: 03/22/19 Time of Service: 17:44 DS: Diagnosis Discharge Diagnosis (1) Lower GI bleed: Status: Acute Asessment and Plan: Heme positive maroon stool. Falling hemoglobin. Anticoagulation stopped. She is hemodynamically stable and okay for transfer. It appears that her GI bleeding improves when she is off anticoagulation however given the patient's high chads vascular score and history of CVA she is high risk to be left off of anticoagulation. Transfer for surgical consultation for hemicolectomy so that she can resume anticoagulation. (2) Diverticulitis: Status: Acute Asessment and Plan: Mild diverticulitis by CT scan. Her exam is quite benign. She is on Flagyl and Cipro empirically. (3) H/O: CVA (cerebrovascular accident): Status: Chronic Asessment and Plan: Mild right-sided deficits have largely resolved. She was on both apixaban and aspirin which are being held because of the GI bleeding. No evidence of progression of her symptoms. (4) Atrial fibrillation: Status: Chronic Asessment and Plan: Treated just with anticoagulation and rate control. Anticoagulation is stopped because of GI bleeding. Cardiology consultation recommended for possible alternatives to lifelong anticoagulation given her history of GI bleeding. Consideration of the watchman procedure. Discharge Plan Disposition Patient Disposition: [facility] Condition: Stable Discharge Details Chief Complaint: GI Bleed Clinical Impression: Acute lower gastrointestinal bleeding, Chronic anticoagulation, Acute diverticulitis Reason For Visit: LOWER BI BLEED,SIGMOID MERCER-DIVERTICULOSIS,PAF,ANEM Admit Date/Time: 03/20/19 21:54 Admit Provider: Avery Mendoza Attending Provider: Avery Mendoza Primary Care Provider: Avi Castillo ED Provider: Christine Agee Hospital Course Hospital Course: This is a 63-year-old woman with paroxysmal atrial fibrillation who is normally on a apixaban for anticoagulation. She suffered a CVA in January 2019 affecting her right side and tongue slightly. She is largely recovered from this event. Aspirin was added to a apixaban at that time. Since that time she has had lower GI bleeding on 3 occasions. This most recent GI bleed has led to a fall in her hemoglobin and admission to our ICU on 03/20/2019. Her hemoglobin levels equal 9.1, 8.4, 7.9, 8.4. She has not required transfusion. She had an abdominal pelvic CT scan on 03/21/2019 that showed mild diverticulitis in the splenic curvature and descending colon. She was empirically started on IV Flagyl and Cipro. Since stopping anticoagulation she has had a decrease in her bowel movement output. Her vital signs have been stable. Given the ongoing need for anticoagulation in the setting of ongoing and recurrent GI bleeding a referral to [facility] for high level of care was made. The feeling is she would probably need a hemicolectomy to stop the ongoing diverticular bleeding that is suspected. Plan is for transfer to the hospitalist service at [facility]. Home Meds and New Rx's Prescriptions: Discontinued metoprolol tartrate 50 MG tablet 50 mg PO BID RF: 0 Flovent HFA 120 PUFF HFA aerosol inhaler 2 puff Inhalation BID RF: 0 Eliquis 5 MG tablet 5 mg PO BID RF: 0 levothyroxine 50 mcg Capsule 50 mcg PO DAILY@0400 RF: 0 atorvastatin 20 mg tablet 20 mg PO QHS Qty: 30 RF: 0 aspirin 81 mg Tablet,Chewable 81 mg PO DAILY RF: 0 pantoprazole [Protonix] 40 mg tablet,delayed release (DR/EC) 40 mg PO DAILY Qty: 30 RF: 0 Discharge Instructions Activity:: bedrest Diet:: NPO Discharge Orders Discharge Orders: Discharge Order (Routine); Ordered 03/22/19 Ordered By: Gavin Yap DS: Summary Status at Discharge Functional status at discharge: independent ambulation Overall status at discharge: patient is progressing back to baseline Mental Status: mental status grossly normal Speech and Movement: speech and movement normal Mood: congruent mood Affect: normal affect Time Spent with Patient providing and/or coordinating discharge services: Greater than 30 minutes Exam Narrative Exam Narrative: Patient is overall comfortable alert and cooperative. She is in no apparent distress. Lungs are completely clear heart sounds are irregularly irregular. Abdomen is completely benign soft and nontender. No guarding or rebound. Lower extremities no CCE. Psych Mental Status: mental status grossly normal Speech and Movement: speech and movement normal Mood: congruent mood Affect: normal affect DS: Data Vitals/I&O Vitals and I&O: Vital Signs Temperature 37 C 03/22/19 16:20 Temperature Source Temporal Artery Scan 03/22/19 16:20 Pulse 88 03/22/19 16:20 Pulse 113 H 03/22/19 14:45 Respiratory Rate 18 03/22/19 16:20 Respiratory Effort 03/22/19 16:20 Respiratory Depth Normal 03/22/19 16:20 Respiratory Pattern Normal 03/22/19 16:20 Blood Pressure 130/85 03/22/19 16:20 Blood Pressure Mean 100 03/22/19 16:20 Blood Pressure Position Supine 03/22/19 16:20 Pulse Oximetry 96 03/22/19 16:20 Oxygen Delivery Method Room Air 03/22/19 16:20 Oxygen Flow Rate 0 03/22/19 16:20 Fraction of Inspired Oxygen (FIO2) 21 03/22/19 08:00 Pain Level 0 03/22/19 16:20 Intake & Output 03/21/19 03/22/19 03/22/19 23:59 11:59 23:59 Intake Total 1340 / 2650 1820 / 2481.667 661.667 / 2481.667 Output Total 425 / 925 1475 / 2375 900 / 2375 Balance 915 / 1725 345 / 106.667 -238.333 / 106.667 Weight 85.27 kg Intake: IV 1100 / 2410 1600 / 2181.667 581.667 / 2181.667 Oral 240 / 240 220 / 300 80 / 300 Output: Urine 425 / 925 1475 / 2375 900 / 2375 Other: Urine Color Yellow Yellow Yellow Urine Appearance Clear Clear Clear Urine Odor None None Comment voiding clear yellow urine to bedside commode. Voiding Methods Bedside Commode Bedside Commode Bedside Commode Data Completed and Pending Labs on day of discharge: Labs from last 24 hours 03/22/19 03/22/19 03/22/19 20:00 14:00 06:30 WBC 6.41 RBC 2.97 L Hgb Pending 8.5 L 7.9 L Hct Pending 28.2 L 26.2 L MCV 88.2 MCH 26.6 L MCHC 30.2 L RDW 14.0 Plt Count 344 MPV 8.1 Immature Gran % 0.2 Neutrophils % 68.1 Lymphocytes % 17.9 Monocytes % 8.3 Eosinophils % 5.0 Basophils % 0.5 Absolute Neutrophils 4.37 Absolute Lymphocytes 1.15 L Absolute Monocytes 0.53 Absolute Eosinophils 0.32 Absolute Basophils 0.03 Differential Comment Rbc morph reviewed RBC Morphology See below Polychromasia Present Hypochromasia 2+ Sodium Potassium Chloride Carbon Dioxide Anion Gap BUN Creatinine Estimated GFR/1.73 m2 Glucose Calcium 03/22/19 03/21/19 06:30 22:05 WBC RBC Hgb 8.4 L Hct 28.1 L MCV MCH MCHC RDW Plt Count MPV Immature Gran % Neutrophils % Lymphocytes % Monocytes % Eosinophils % Basophils % Absolute Neutrophils Absolute Lymphocytes Absolute Monocytes Absolute Eosinophils Absolute Basophils Differential Comment RBC Morphology Polychromasia Hypochromasia Sodium 143 Potassium 3.8 Chloride 110 H Carbon Dioxide 22.6 Anion Gap 10.4 BUN 11 Creatinine 0.90 Estimated GFR/1.73 m2 >= 60.00 Glucose [address] scan - abdomen: Radiologist's impression: EXAM: CT ABDOMEN PELVIS W CLINICAL HISTORY: LLQ ABD PAIN, GI BLEEDING, R/O DIVERTICULITIS TECHNIQUE: Post IV and without oral contrast. COMPARISON: No exams were available for comparison FINDINGS: The heart is enlarged. The lung bases are clear. The liver, gallbladder, spleen, pancreas, kidneys and adrenals are unremarkable. The appendix is normal. There is a normal quantity of stool. There are numerous diverticula seen in the descending and sigmoid colon. There is mild stranding in the fat surrounding the junction of the descending and sigmoid colon, consistent with mild diverticulitis. There is no evidence of perforation, abscess or free fluid. There is a small uterine fibroid. The ovaries are unremarkable. The bladder is unremarkable. Atherosclerotic changes are seen in the aorta and iliac arteries. There is no evidence of an aneurysm. IMPRESSION: Mild diverticulitis at the junction of the sigmoid and descending colon. [facility] Medical History Allergic rhinitis (Chronic) Anemia (Chronic) Asthma (Chronic) Atrial fibrillation (Chronic) Deviated nasal septum (Inactive) Diverticula of colon (Chronic) Diverticulitis 2011 and 2013 H/O: CVA (cerebrovascular accident) (Chronic) Hypertension, essential, benign (Chronic) Hypothyroidism (Chronic) Nonhealing skin ulcer (Chronic) RLE Obesity (BMI 30.0-34.9) (Acute) Sleep apnea (Chronic) Uses CPAP Thrombotic stroke involving cerebral artery (Inactive) TIA (transient ischemic attack) (Inactive) Vitamin D deficiency (Chronic) Surgical History Colonoscopy - MAC (08/10/17) History of esophagogastroduodenoscopy (EGD) (Chronic) Family History Maternal Grandfather Heart disease Mother Diabetes Hypertension Pancreatic cancer Maternal Grandmother Diabetes Father Head and neck cancer Brain cancer Other Diverticulitis Social History Smoking/Tobacco Use Status: Never Alcohol Intake: never Drug use: Never Substance use type: does not use Do you feel safe at home: Yes Do you feel safe in your relationship?: Yes
== END 2019-03-22 18:30 | disposition short-term general hospital (02) | DRG 378 ==
LOC: ER 22:04 → ICU 23:18
PROVIDERS: Internal Medicine; Admitting Provider Family Medicine; Emergency Provider Physician Assistant; PCP Nurse Practitioner Family; Visit Provider Family Medicine
DX: K57.33 Diverticulitis of large intestine without perforation or abscess with bleeding (principal); D62 Acute posthemorrhagic anemia; Z79.01 Long term (current) use of anticoagulants; Z86.73 Personal history of transient ischemic attack (TIA), and cerebral infarction without residual deficits; I48.0 Paroxysmal atrial fibrillation; E03.9 Hypothyroidism, unspecified; G47.33 Obstructive sleep apnea (adult) (pediatric); I10 Essential (primary) hypertension
CPT/HCPCS: 36415; 80048; 80053; 94640; 96360; 99223; 99233; 99239; 99285; 74177; 85014; 85018; 85025; 85610; J0744; J2405; J3490

== ENCOUNTER 2019-04-07 12:04 | Outpatient (REF) | payer BC, SELFPAY ==
[2019-04-07 13:02] LABS: HCT 29.6 % (36.0-46.0); HGB 8.8 g/dL (12.0-15.5); Mean Corp. HGB Concentration 29.7 g/dL (32.0-36.0); Mean Corpuscular Hemoglobin 25.4 pg (27.0-33.0); Mean Corpuscular Volume 85.5 fL (80-95); Mean Platelet Volume 8.9 fL (8.0-11.0); Platelet Count 452 x1000/uL (130-400); RBC 3.46 m/cumm (4.00-5.20); RBC Distribution Width 15.1 % (11.7-14.6); White Blood Cell Count 7.57 k/cumm (4.4-10.8)
== END 2019-04-07 12:24 ==
LOC: NCHCN 12:04
PROVIDERS: PCP Nurse Practitioner Family; Visit Provider Nurse Practitioner Family
DX: D64.9 Anemia, unspecified (principal)
CPT/HCPCS: 85027

== ENCOUNTER 2019-05-16 08:15 | Outpatient (CLI) | payer BC, SELFPAY | END 2019-05-16 08:35 | PROVIDERS: PCP Nurse Practitioner Family; Visit Provider Internal Medicine Cardiovascular Disease | DX: I48.91 Unspecified atrial fibrillation (principal); I10 Essential (primary) hypertension; Z86.73 Personal history of transient ischemic attack (TIA), and cerebral infarction without residual deficits | CPT/HCPCS: 93005; 93010 ==

== ENCOUNTER → 2019-11-14 10:24 | Outpatient (BNVA) | payer MEDICARE, SELFPAY | PROVIDERS: PCP Nurse Practitioner Family; Referring Provider Nurse Practitioner Family; Visit Provider Internal Medicine Cardiovascular Disease | DX: I48.20 Chronic atrial fibrillation, unspecified (principal); Z79.01 Long term (current) use of anticoagulants; Z86.73 Personal history of transient ischemic attack (TIA), and cerebral infarction without residual deficits; I10 Essential (primary) hypertension | CPT/HCPCS: 99213; 99214 ==

== ENCOUNTER → 2019-11-28 14:35 | Outpatient (BNVA) | payer MEDICARE, OTHER, SELFPAY | PROVIDERS: PCP Nurse Practitioner Family; Referring Provider Nurse Practitioner Family; Visit Provider Internal Medicine Cardiovascular Disease | DX: I48.20 Chronic atrial fibrillation, unspecified (principal); I10 Essential (primary) hypertension; Z86.73 Personal history of transient ischemic attack (TIA), and cerebral infarction without residual deficits; Z79.01 Long term (current) use of anticoagulants | CPT/HCPCS: 99443 ==

== ENCOUNTER 2020-02-23 01:19 | Outpatient (CLI) | payer MEDICARE, SELFPAY ==
--- NOTE | 2020-02-23 | DI.MAMMO_ITS ---
EXAM: MG MAMMO SCREENING CLINICAL HISTORY: SCREENING,Z12.31 TECHNIQUE: Bilateral full field digital CC and MLO mammographic images were obtained with 3D tomosyn thesis and utilizing computer aided detection (CAD). COMPARISON: Available for comparison. FINDINGS: Masses/Architectural Distortion: None seen. Microcalcifications: No suspicious pleomorphic-type are seen. Skin Thickening/Nipple Retraction: None. IMPRESSION: 1. No significant interval change with no specific features of malignancy noted. 2. Unless there is more urgent need, screening mammography is recommended, as per [employer] guidelines. BI-RADS Category 1 - Negative Breast Density - Category B - Scattered areas of fibroglandular density A negative radiographic report should not delay biopsy if a dominant or clinically suspicious mass is present. Up to ten percent of cancers are not identified on mammography. A negative report may reinforce clinical impression. Adenosis and dense breasts may obscure an underlying neoplasm. False positive reports average 6 to 10%. Patient will receive a letter notifying them of these results.
--- NOTE | 2020-02-23 | DI.DEXA_ITS ---
EXAM: XR DEXA BONE DENSITY W/WO JOSE ROBERTO CLINICAL HISTORY: SCREENING FOR OSTEOPOROSIS IN POSTMENOPAUSAL WOMAN,Z78.0 TECHNIQUE: COMPARISON: No exams were available for comparison FINDINGS: Lateral Spine Image: Unremarkable. No compression deformities identified. Left hip: Total T-Score: -0.6 Total Z-Score: 0.6 T- and Z-scores: Within normal limits. Lumbar Spine: Total T-Score: -0.2 Total Z-Score: 1.7 T- and Z-scores: Within normal limits. IMPRESSION: No evidence of osteoporosis.
== END 2020-02-23 01:39 ==
PROVIDERS: PCP Nurse Practitioner Family; Visit Provider Obstetrics & Gynecology
DX: Z12.31 Encounter for screening mammogram for malignant neoplasm of breast (principal); Z78.0 Asymptomatic menopausal state
CPT/HCPCS: 77063; 77067; 77080

== ENCOUNTER → 2020-03-20 10:57 | Outpatient (BNVA) | payer MEDICARE, OTHER, SELFPAY | PROVIDERS: PCP Nurse Practitioner Family; Referring Provider Nurse Practitioner Family; Visit Provider Internal Medicine Cardiovascular Disease | DX: I48.20 Chronic atrial fibrillation, unspecified (principal); I10 Essential (primary) hypertension; Z79.01 Long term (current) use of anticoagulants; Z86.73 Personal history of transient ischemic attack (TIA), and cerebral infarction without residual deficits | CPT/HCPCS: 99214 ==

== ENCOUNTER 2020-07-19 02:14 | Outpatient (CLI) | payer MEDICARE, OTHER, SELFPAY ==
[2020-07-19 13:18] LABS: Hemoglobin A1C 5.9 % (<5.7)
[2020-07-19 13:36] LABS: Anion Gap 6.2 mmol/L (3-11); BUN 14 mg/dL (7-18); CO2 29.8 mmol/L (21.0-32.0); CREATININE 0.8 mg/dL (0.55-1.02); Calcium 9.3 mg/dL (8.5-10.1); Chloride 104 mmol/L (98-107); Glucose 89 mg/dL (74-106); Potassium 3.8 mmol/L (3.5-5.1); Sodium 140 mmol/L (136-145)
[2020-07-19 13:50] LABS: TSH (W/Ref FT4) 3.38 uIU/mL (0.36-3.74)
== END 2020-07-19 02:15 | disposition home or self-care (01) ==
LOC: LBO 02:14
PROVIDERS: PCP Nurse Practitioner Family; Visit Provider Internal Medicine
DX: I48.91 Unspecified atrial fibrillation (principal); Z79.01 Long term (current) use of anticoagulants; I10 Essential (primary) hypertension; Z86.73 Personal history of transient ischemic attack (TIA), and cerebral infarction without residual deficits
CPT/HCPCS: 36415; 80048; 99214; 83036; 84443

== ENCOUNTER 2020-08-20 03:22 | Outpatient (CLI) | payer MEDICARE, OTHER, SELFPAY ==
[2020-08-20 15:41] LABS: Anion Gap 8.6 mmol/L (3-11); BUN 13 mg/dL (7-18); CO2 28.4 mmol/L (21.0-32.0); CREATININE 0.8 mg/dL (0.55-1.02); Calcium 9.1 mg/dL (8.5-10.1); Chloride 106 mmol/L (98-107); Glucose 74 mg/dL (74-106); Potassium 3.7 mmol/L (3.5-5.1); Sodium 143 mmol/L (136-145)
== END 2020-08-20 03:23 | disposition home or self-care (01) ==
LOC: LBO 03:22
PROVIDERS: PCP Nurse Practitioner Family; Visit Provider Internal Medicine
DX: I10 Essential (primary) hypertension (principal)
CPT/HCPCS: 36415; 80048

== ENCOUNTER → 2021-01-15 12:52 | Outpatient (BNVA) | payer MEDICARE, OTHER, SELFPAY | PROVIDERS: PCP Physician Assistant; Referring Provider Nurse Practitioner Family; Visit Provider Internal Medicine Cardiovascular Disease | DX: I48.21 Permanent atrial fibrillation (principal); I10 Essential (primary) hypertension | CPT/HCPCS: 99213 ==

== ENCOUNTER 2021-02-13 00:57 | Outpatient (CLI) | payer MEDICARE, OTHER, SELFPAY ==
--- NOTE | 2021-02-13 11:35 | DI.MAMMO_ITS ---
Exam(s) MAMMO SCREENING EXAM: MAMMO SCREENING CLINICAL HISTORY: SCREENING, Z12.31. TECHNIQUE: Bilateral full field digital CC and MLO mammographic images were obtained with 3D tomosyn thesis and utilizing computer aided detection (CAD). COMPARISON: Prior mammograms dating back to 2011, the most recent being . FINDINGS: There are no new spiculated masses nor malignant appearing microcalcification groups. Small benign-appearing nodule towards the upper quadrant of the left breast is unchanged from prior m ammograms and is most probably benign intramammary lymph node. There is no significant architectural distortion nor skin thickening-retraction. IMPRESSION: No radiographic evidence of malignancy. BI-RADS Category 1 - Negative Breast Density - Category B - Scattered areas of fibroglandular density Breast density Category C or D implies that the patient has dense breast tissue. Dense breast tissue can make it harder to find cancer on a mammogram. Dense breast tissue is also associated with an incr eased risk of breast cancer. This information about the result of the mammogram report was provided to the patient to raise their awareness. Use this report when you speak with the patient about their risks for breast cancer, which includes their family history. At that time, you may recommend additional screening tests (Ultrasoun d or MRI) as these tests may add significant information. A negative radiographic report should not delay biopsy if a dominant or clinically suspicious mass is present. Up to ten percent of cancers are not identified on mammography. A negative report may reinforce clinical impression. Adenosis and dense breasts may obscure an underlying neoplasm. False positive reports average 6 to 10%. Patient will receive a letter notifying them of these results.
== END 2021-02-13 01:17 ==
PROVIDERS: PCP Physician Assistant; Visit Provider Physician Assistant
DX: Z12.31 Encounter for screening mammogram for malignant neoplasm of breast (principal)
CPT/HCPCS: 77063; 77067

== ENCOUNTER 2021-03-11 08:56 | Outpatient (REF) | payer MEDICARE, OTHER, SELFPAY ==
[2021-03-11 14:32] LABS: HCT 41.8 % (36.0-46.0); HGB 13.3 g/dL (11.2-15.7); MCH 28.1 pg (27.0-33.0); MCHC 31.8 % (32.0-36.0); MCV 88.4 fL (80-95); MPV 9.5 fL (8.0-11.0); Platelet Count 234 10^3/uL (130-400); RBC 4.73 10^6/uL (3.93-5.22); RDW 14.1 % (11.7-14.6); RDW-SD 45.5 fL; WBC 6.53 10^3/uL (4.4-10.8)
[2021-03-11 14:46] LABS: Hemoglobin A1C 5.9 % (<5.7)
[2021-03-11 14:52] LABS: ALT 34 U/L (14-59); AST 23 U/L (15-37); Albumin 3.6 g/dL (3.4-5.0); Alkaline Phosphatase 106 U/L (46-116); Anion Gap 7.1 mmol/L (3-11); BUN 14 mg/dL (7-18); Bilirubin, Total 0.7 mg/dL (0.2-1.0); CO2 28.9 mmol/L (21.0-32.0); CREATININE 0.8 mg/dL (0.55-1.02); Calcium 8.6 mg/dL (8.5-10.1); Calculated LDL 75 mg/dL (<100); Chloride 105 mmol/L (98-107); Cholesterol 130 mg/dL (<200); Glucose 100 mg/dL (74-106); HDL Cholesterol 42 mg/dL (40-60); Potassium 3.9 mmol/L (3.5-5.1); Sodium 141 mmol/L (136-145); TSH 3.72 uIU/mL (0.36-3.74); Total Protein 7.3 g/dL (6.4-8.2); Triglyceride 69 mg/dL (<150)
== END 2021-03-11 08:57 | disposition home or self-care (01) ==
LOC: NCHCN 08:56
PROVIDERS: PCP Physician Assistant; Visit Provider Physician Assistant
DX: E03.9 Hypothyroidism, unspecified (principal); R73.03 Prediabetes; I10 Essential (primary) hypertension; I48.91 Unspecified atrial fibrillation
CPT/HCPCS: 80053; 80061; 85027; 83036; 84443

== ENCOUNTER 2021-07-05 02:17 | Outpatient (CLI) | payer MEDICARE, OTHER, SELFPAY ==
--- NOTE | 2021-07-05 | DI.CT_ITS ---
Exam(s) CT CHEST WO EXAM: CT CHEST WO CLINICAL HISTORY: SOLITARY NODULE OF LUNG, R91.1, INCIDENTAL RLL SUBPLEURAL NODULE 2019. TECHNIQUE: Imaging protocol: Axial computed tomography images were obtained and coronal and sagittal reformatted images were created and reviewed. COMPARISON: CT CT ANGIOGRAM ABDOMEN AND PELVIS WWO CONTRAST from 03/24/2019 FINDINGS: Tracheobronchial tree: Patent where visualized. Pulmonary parenchyma: There is a calcified granuloma in the left lower lobe. There are several scatt ered noncalcified pulmonary nodules present. The largest is in the right lower lobe and measures 6 m m. There is scarring or atelectasis in the lung bases. No focal consolidating infiltrates are seen. Mediastinum and Kristin: No dominant adenopathy or fluid collection. The esophagus is unremarkable. Thyroid gland: Unremarkable. Pleura: No effusion or pneumothorax. Heart: The heart is not dilated. Mild coronary artery calcification is present. No pericardial effus ion. Aorta: Thoracic aorta non-dilated. Atherosclerosis. Upper abdomen: Unremarkable. Lymph nodes: Within normal limits. Soft tissues: Unremarkable. Bones:Within normal limits for the patient's age. IMPRESSION: Several scattered noncalcified pulmonary nodules are present. The largest measures 6 mm. For high r isk patients (history of smoking or other risk factors), a follow-up CT scan in 12-18 months is recom mended. (Shivam et al, 2017). RADIATION DOSE DELIVERED: 615.26mGy.cm Total DLP 615.26mGy.cm Total DLP DATA REPOSITORY: All CT scans at this facility are submitted to the National Radiology Data Registry (NRDR) Dose Index Registry (DIR) with the [employer] (ACR). RADIATION OPTIMIZATION: All CT scans at this facility use at least one of these dose optimization te chniques: automated exposure control; mA and/or kV adjustment per patient size (includes targeted exa ms where dose is matched to clinical indication); or iterative reconstruction.
== END 2021-07-05 02:37 ==
PROVIDERS: PCP Physician Assistant; Visit Provider Physician Assistant
DX: R91.1 Solitary pulmonary nodule (principal)
CPT/HCPCS: 71250

== ENCOUNTER 2021-09-27 01:29 | Outpatient (CLI) | payer MEDICARE, OTHER, SELFPAY ==
--- OUTSIDE RECORDS SUMMARY | 2021-09-27 01:30 | XMS_ITS ---
:1955 Author Care Team Providers Name Role Phone [facility] Primary Care Provider [phone] [facility] OTHER [phone] SAMANTHA LEANN Primary Care Provider [phone] Allergies Code Code System Name Reaction Severity Status Onset 596633 RxNorm Augmentin ? ? Active ? Penicillins ? ? Active ? Medications Name Status Start Date Stop Date ? ? atorvastatin 20 mg tablet Active ? Not av ailable Take 1 tablet every day by oral route. carvedilol 12.5 mg tablet Active ? Not av ailable Take 1.5 tablets twice a day by oral route. Eliquis 5 mg tablet Active ? Not availabl e 2x a day Flovent HFA 110 mcg/actuation aerosol inhaler Active ? Not available levalbuterol HFA 45 mcg/actuation aerosol inhaler Completed ? 10/13/2017 levothyroxine Active ? Not available 50mcg daily levothyroxine 50 mcg tablet Completed ? 06/2017 lisinopril 20 mg tablet Active ? Not avai lable Take 1 tablet every day by oral route. Low Dose Aspirin 81 mg tablet,delayed release Completed ? 12/25/2020 Take 1 tablet every day by oral route. metoprolol tartrate 50 mg tablet Completed ? 12/25/2020 Vitamin D3 Completed ? 08/04/2019 daily vitamin E Completed ? 08/04/2019 daily zolpidem 5 mg tablet Completed ? 08/04/2019 Take 1 PO night of sleep study may repeat x 1 PRN Problems Name Status Onset Date Source ? Obstructive Sleep Apnea Syndrome Active ? ? Hypertensive Disorder Active ? ? Atrial Fibrillation Active ? ? Cerebrovascular Accident Active ? ? Allergic Rhinitis Active ? ? Asthma Active ? ? Diverticulitis Active ? ? Procedures Date Name Performed by ? 10/15/2017 Polysomnogram [facility] [address] [place] [address] [place] [address] (Work [address]) Results Lab Results None recorded. Past Encounters 12/25/2020 Obstructive Sleep Apnea Syndrome Lety Colunga, CHIEF TECHNICAL OFFICER: [address] [place] [phone], Ph. Social History Tobacco Smoking Status Never Smoker Vaccine List None recorded. Plan of Care Reminders Provider Appointments None recorded. ? ? Lab None recorded. ? ? Referral None recorded. ? ? Procedures None recorded. ? ? Surgeries None recorded. ? ? Imaging None recorded. ? ? Vitals 12/25/2020 10:00AM Office 30 Height Weight BMI Blood Pressure 162.56 cm 96.98 kg 36.7 kg/m2 141/89 mm[Hg] 08/04/2019 10:15AM Office 30 Height Weight BMI 162.56 cm 86.18 kg 32.6 kg/m2 07/20/2018 08:00AM Office 30 Height Weight BMI Blood Pressure 162.56 cm 95.66 kg 36.2 kg/m2 144/100 mm[Hg] 05/11/2018 08:00AM Office 30 Height Weight BMI Blood Pressure 163.2 cm 91.94 kg 34.5 kg/m2 120/78 mm[Hg] 02/04/2018 11:30AM Office 30 Height Weight BMI Blood Pressure 163.2 cm 90.58 kg 34 kg/m2 128/88 mm[Hg] 12/03/2017 11:00AM Office 30 Height Weight BMI Blood Pressure 163.2 cm 88.54 kg 33.2 kg/m2 152/100 mm[Hg] 10/15/2017 02:00PM New Patient 45 Height Weight BMI Blood Pressure 163.2 cm 87.36 kg 32.8 kg/m2 140/84 mm[Hg]
[2021-09-27 14:04] LABS: Anion Gap 8.1 mmol/L (3-11); BUN 10 mg/dL (7-18); CO2 25.9 mmol/L (21.0-32.0); CREATININE 0.8 mg/dL (0.55-1.02); Calcium 8.9 mg/dL (8.5-10.1); Chloride 108 mmol/L (98-107); Glucose 91 mg/dL (74-106); Potassium 3.5 mmol/L (3.5-5.1); Sodium 142 mmol/L (136-145)
== END 2021-09-27 01:30 | disposition home or self-care (01) ==
LOC: LBO 01:29
PROVIDERS: PCP Physician Assistant; Visit Provider Internal Medicine
DX: I10 Essential (primary) hypertension (principal)
CPT/HCPCS: 36415; 80048

== ENCOUNTER 2022-01-13 08:19 | Outpatient (CLI) | payer MEDICARE, OTHER, SELFPAY ==
--- NOTE | 2022-01-13 08:15 | RT.EKG_ITS ---
APPROVED REPORT Exam: Resting ECG Reason for Exam: chronic atrial fibrillation Patient Location: O HR:88 bpm ECG Measurements Heart Rate 88 AXIS MT [id number] P [id number] QRSd 88 QRS -5 QT 359 T 3 QTc 435 Conclusion Atrial fibrillation...V-rate 65-103, irreg A-activity Low voltage, precordial leads...precordial leads <1.0mV LVH by voltage...R >1.10 in aVL
== END 2022-01-13 08:20 | disposition home or self-care (01) ==
LOC: DI.CARD 08:26
PROVIDERS: PCP Physician Assistant; Visit Provider Internal Medicine Cardiovascular Disease
DX: I48.20 Chronic atrial fibrillation, unspecified (principal); R94.31 Abnormal electrocardiogram [ECG] [EKG]
CPT/HCPCS: 93010

== ENCOUNTER → 2022-01-13 13:31 | Outpatient (BNVA) | payer MEDICARE, OTHER, SELFPAY | PROVIDERS: PCP Physician Assistant; Visit Provider Internal Medicine Cardiovascular Disease | DX: I48.21 Permanent atrial fibrillation (principal); Z79.01 Long term (current) use of anticoagulants; I10 Essential (primary) hypertension | CPT/HCPCS: 93005; 99214 ==

== ENCOUNTER 2022-04-03 01:29 | Outpatient (CLI) | payer MEDICARE, OTHER, SELFPAY ==
--- NOTE | 2022-04-03 | DI.MAMMO_ITS ---
Exam(s) MAMMO SCREENING EXAM: MAMMO SCREENING CLINICAL HISTORY: SCREENING, Z12.31 TECHNIQUE: Mammograms were interpreted according to the usual protocol including computer analysis w [employer] CAD system, tomosynthesis and C-view imaging. COMPARISON: 2012 through 2020 FINDINGS: The breasts are composed of scattered fibroglandular densities, Breast Density category B. No suspicious masses or suspicious microcalcifications are seen. No skin thickening or abnormal axillary lymph nodes are seen. There has been no significant change from prior exams. IMPRESSION: BI-RADS Category 1, Negative mammogram Yearly screening mammography is recommended. Breast Density - Category B, scattered fibroglandular densities. A negative radiographic report should not delay biopsy if a dominant or clinically suspicious mass is present. Up to ten percent of cancers are not identified on mammography. A negative report may reinforce clinical impression. Adenosis and dense breasts may obscure an underlying neoplasm. False positive reports average 6 to 10%. Patient will receive a letter notifying them of these results.
== END 2022-04-03 01:49 ==
PROVIDERS: PCP Physician Assistant; Visit Provider Physician Assistant
DX: Z12.31 Encounter for screening mammogram for malignant neoplasm of breast (principal)
CPT/HCPCS: 77063; 77067

== ENCOUNTER 2022-04-16 09:46 | Outpatient (REF) | payer MEDICARE, SELFPAY ==
[2022-04-16 15:48] LABS: Hemoglobin A1C 6.1 % (<5.7)
[2022-04-16 15:50] LABS: ALT 22 U/L (14-59); AST 21 U/L (15-37); Albumin 3.9 g/dL (3.4-5.0); Alkaline Phosphatase 120 U/L (46-116); Anion Gap 7.4 mmol/L (3-11); BUN 12 mg/dL (7-18); Bilirubin, Total 0.8 mg/dL (0.2-1.0); CO2 29.6 mmol/L (21.0-32.0); CREATININE 0.8 mg/dL (0.55-1.02); Calculated LDL 64 mg/dL (<100); Chloride 103 mmol/L (98-107); Cholesterol 120 mg/dL (<200); Estimated GFR 80.21 (mL/min/1.73m2); Glucose 105 mg/dL (74-106); HDL Cholesterol 39 mg/dL (40-60); Potassium 3.8 mmol/L (3.5-5.1); Sodium 140 mmol/L (136-145); TSH 4.58 uIU/mL (0.36-3.74); Total Protein 8.2 g/dL (6.4-8.2); Triglyceride 87 mg/dL (<150)
== END 2022-04-16 09:47 | disposition home or self-care (01) ==
LOC: NCHCN 09:46
PROVIDERS: PCP Physician Assistant; Visit Provider Physician Assistant
DX: E03.9 Hypothyroidism, unspecified (principal); R73.03 Prediabetes; I10 Essential (primary) hypertension
CPT/HCPCS: 80053; 80061; 83036; 84443

== ENCOUNTER → 2022-07-22 13:48 | Outpatient (BNVA) | payer MEDICARE, SELFPAY | PROVIDERS: PCP Physician Assistant; Visit Provider Internal Medicine Cardiovascular Disease | DX: I48.21 Permanent atrial fibrillation (principal); Z79.01 Long term (current) use of anticoagulants; I10 Essential (primary) hypertension | CPT/HCPCS: 99213 ==

== ENCOUNTER 2022-08-26 12:22 | Emergency (ER) | payer MEDICARE, SELFPAY ==
[2022-08-26] VITALS (35 sets, daily range): BP systolic 144–165; BP diastolic 72–111; PULSE 62–98; RESP 11–32; TEMP 36.7; O2SAT 95–100
[2022-08-26 13:46] LABS: Abs Immature Grans 0.03 10^3/uL (0.0-0.06); Absolute Basophil Count 0.03 10^3/uL (0.0-0.2); Absolute Eosinophil Count 0.21 10^3/uL (0.0-0.7); Absolute Lymphocyte Count 1.11 10^3/uL (1.2-3.4); Absolute Monocyte Count 0.64 10^3/uL (0.1-0.8); Absolute Neutrophil Count 6.72 10^3/uL (1.2-6.7); Basophils % 0.3; Eosinophils % 2.4; HCT 39.4 % (36.0-46.0); HGB 12.5 g/dL (11.2-15.7); Immature Grans % 0.3; Lymphocytes % 12.7; MCH 27.7 pg (27.0-33.0); MCHC 31.7 % (32.0-36.0); MCV 87 fL (80-95); MPV 8.3 fL (8.0-11.0); Monocytes % 7.3; Platelet Count 286 10^3/uL (130-400); RBC 4.52 10^6/uL (3.93-5.22); RDW 13.4 % (11.7-14.6); RDW-SD 42.9 fL; WBC 8.74 10^3/uL (4.4-10.8)
--- NOTE | 2022-08-26 13:58 | ED.GENADUL_ITS ---
Discharge Plan Disposition Patient Disposition: Transfer-Acute Inpatient Care Specific Acute Inpt Facility: [facility] Condition: Serious Discharge Details Chief Complaint: GI Bleed Clinical Impression: Acute lower gastrointestinal bleeding Primary Care Provider: Tom Stephens ED Provider: Lebron Proctor Home Meds and New Rx's Prescriptions: No Action Metamucil (sugar) Powder 2 tsp PO DAILY fluticasone propionate [Flovent HFA] 220 mcg/actuation HFA aerosol inhaler 2 puff inhalation BID carvedilol 25 mg tablet 25 mg PO BID Qty: 180 3RF Rx Instructions: must administer with a meal/food lisinopril 30 mg tablet 30 mg PO DAILY atorvastatin 20 mg tablet 20 mg PO QHS Eliquis 5 mg tablet 5 mg PO BID levothyroxine 50 mcg capsule 75 mcg PO DAILY Medical Decision Making 1400 --67-year-old female with multiple medical problems including history of atrial fibrillation, on Eliquis, history of diverticulitis status post partial colectomy, here with bright red blood per rectum today. Abdominal exam benign. No source of bleeding identified on rectal exam. Patient is hemodynamically stable. Protonix 80 mg bolus was ordered initially. I called and spoke with on-call general surgeon, Dr. Ramírez, unfortunately she is not able to admit the patient and recommends transfer. 1410 -- I spoke with [facility] [place]. Awaiting call back. 1442 -- Spoke with [facility] [place], discussed ED presentation and course, they refused to except the patient in transfer due to capacity. I called [facility] transfer center to request emergent transfer awaiting callback. Patient had recurrent bloody BM. 1535 -- I called [facility] transfer center to request update. 1619 -- I [place] Willams [place] [facility] [place] in [place]. Awaiting bed. Patient remains hemodynamically stable and no persistent bleeding. No indicat ion for emergent reversal at this time. Will repeat Hb while awaiting transfer. Lab Data Lab results reviewed: Yes I reviewed the patient's lab results. Labs: Laboratory Tests Range/Units 08/26/22 08/26/22 08/26/22 13:40 13:40 13:40 WBC (4.4-10.8) 10^3/uL 8.74 RBC (3.93-5.22) 10^6/uL 4.52 Hgb (11.2-15.7) g/dL 12.5 Hct (36.0-46.0) % 39.4 MCV (80-95) fL 87 MCH (27.0-33.0) pg 27.7 MCHC (32.0-36.0) % 31.7 L RDW (11.7-14.6) % 13.4 Plt Count (130-400) 10^3/uL 286 MPV (8.0-11.0) fL 8.3 Immature Gran % 0.3 Neutrophils % 77.0 Lymphocytes % 12.7 Monocytes % 7.3 Eosinophils % 2.4 Basophils % 0.3 Nucleated RBC % (0.0-0.3) % 0.0 Absolute Neutrophils (1.2-6.7) 10^3/uL 6.72 H Absolute Lymphocytes (1.2-3.4) 10^3/uL 1.11 L Absolute Monocytes (0.1-0.8) 10^3/uL 0.64 Absolute Eosinophils (0.0-0.7) 10^3/uL 0.21 Absolute Basophils (0.0-0.2) 10^3/uL 0.03 Sodium (136-145) mmol/L 140 Potassium (3.5-5.1) mmol/L 3.8 Chloride (98-107) mmol/L 106 Carbon Dioxide (21.0-32.0) mmol/L 28.5 Anion Gap (3-11) mmol/L 5.5 BUN (7-18) mg/dL 12 Creatinine (0.55-1.02) mg/dL 0.8 Est GFR (CKD-EPI 2020) (mL/min/1.73m2) 80.21 Glucose (74-106) mg/dL 104 Calcium (8.5-10.1) mg/dL 9.5 Total Bilirubin (0.2-1.0) mg/dL 0.5 AST (15-37) U/L 17 ALT (14-59) U/L 33 Alkaline Phosphatase (46-116) U/L 114 Total Protein (6.4-8.2) g/dL 8.5 H Albumin (3.4-5.0) g/dL 3.6 Patient ABO/Rh O Negative Antibody Screen NEGATIVE [facility] General Mode of arrival: ambulatory . Date/Time Provider Initiated Documentation: 08/26/22 13:13 . Limitations to Documentation: no limitations . Information obtained by: patient . HPI Narrative: 67-year-old female with multimedical problems including history of A-fib on Eliquis, diverticulitis status post partial colectomy in 2019, here with bright red blood per rectum that occurred with bowel movement prior to arrival. She had another bowel movement here in the emergency department that was also bloody. Patient notes gross bright red blood with no melena. She had 2 bowel movements earlier this morning that were normal, brown. No associated abdominal pain. No nausea vomiting. Related Data Home Medications Medication Instructions Recorded Confirmed apixaban 5 mg tablet (Eliquis) 5 mg PO BID 03/28/19 08/26/22 atorvastatin 20 mg tablet 20 mg PO QHS 03/28/19 08/26/22 psyllium seed (sugar) oral powder 2 tsp PO DAILY 07/19/20 08/26/22 (Metamucil (sugar) oral powder) carvedilol 25 mg tablet 25 mg PO BID #180 tabs 01/13/22 08/26/22 lisinopril 30 mg tablet 30 mg PO DAILY 01/13/22 08/26/22 fluticasone propionate 220 2 puff inhalation BID 07/22/22 08/26/22 mcg/actuation HFA aerosol inhaler (Flovent HFA) levothyroxine 50 mcg capsule 75 mcg PO DAILY 07/22/22 08/26/22 Previous Rx's Medication Instructions Recorded carvedilol 25 mg tablet 25 mg PO BID #180 tabs 01/13/22 Allergies Allergy/AdvReac Type Severity Reaction Status Date / Time penicillin V potassium Allergy Intermediate rash Verified 07/22/22 14:03 [From Pen-Vee K] albuterol Allergy Mild Verified 07/22/22 14:03 amoxicillin [From Augmentin] Allergy Verified 07/22/22 14:03 clavulanic acid Allergy Verified 07/22/22 14:03 [From Augmentin] Penicillins Allergy Verified 07/22/22 14:03 General Stated Complaint: GI Bleed BREE: 3 Review of Systems All systems reviewed & are unremarkable except as noted in HPI and below Gastrointestinal Gastrointestinal: Reports as per HPI PFSH All Active Problems (Updated 08/26/22 @ 16:25 by Lebron Proctor MD) Acute lower gastrointestinal bleeding (Acute) Atrial fibrillation, chronic (Acute) Hypertension (Chronic) H/O: CVA (cerebrovascular accident) (Chronic) Diverticulitis (Acute) Diverticula of colon (Chronic) Anemia due to acute blood loss (Acute) Lower GI bleed (Acute) GI bleed (Acute) Abscessed tooth (Acute) Atrial fibrillation (Chronic) Asthma (Chronic) Nonhealing skin ulcer (Chronic) RLE Vitamin D deficiency (Chronic) Anemia (Chronic) Sleep apnea (Chronic) Uses CPAP Allergic rhinitis (Chronic) Hypothyroidism (Chronic) Hypertension, essential, benign (Chronic) Lump in neck (Acute) jugular notch Medical History (Updated 08/26/22 @ 16:25 by Lebron Proctor MD) Deviated nasal septum Diverticulitis 2011 and 2013 Obesity (BMI 30.0-34.9) Thrombotic stroke involving cerebral artery TIA (transient ischemic attack) Surgical History Colonoscopy - MAC (08/10/17) History of esophagogastroduodenoscopy (EGD) Family History Maternal Grandfather Heart disease Mother Diabetes Hypertension Pancreatic cancer Maternal Grandmother Diabetes Father Head and neck cancer Brain cancer Other Diverticulitis Social History Smoking/Tobacco Use Status: Never Smoking risk assessment performed?: Yes Alcohol Intake: current Alcohol Intake frequency: holidays/special occasions only Alcohol type: beer Drug use: Never Substance use type: does not use What type of physical activity do you participate in: walking Duration: 15-30 minutes/day Frequency: daily Do you feel safe at home: Yes Do you feel safe in your relationship?: Yes Exam Const General: cooperative and no acute distress HENMT Mouth: moist mucous membranes Eyes Conjunctivae: normal conjunctivae Sclera: normal sclerae Resp Auscultation: clear to auscultation bilaterally, no rales, no rhonchi and no wheezes Cardio Rate: regular rate and not tachycardic Rhythm: regular rhythm GI Palpation: soft, not firm, no guarding, no masses, not rigid and nontender Rectal Exam - female: visual inspection normal, No hemorrhoids and No laceration Skin General skin exam: no rashes or lesions noted Neuro General: patient alert, patient awake and tone normal Extrem General: no edema Course Vital Signs Vital signs: Vital Signs Temperature 36.7 C 08/26/22 12:27 Pulse 96 H 08/26/22 12:27 Respiratory Rate 17 08/26/22 12:27 Blood Pressure 151/100 H 08/26/22 12:27 Pulse Oximetry 100 08/26/22 12:27 Temperature 36.7 C 08/26/22 12:27 Temperature Source Temporal Artery Scan 08/26/22 12:27 Pulse 96 H 08/26/22 12:27 Respiratory Rate 17 08/26/22 12:27 Respiratory Effort Normal 08/26/22 12:29 Blood Pressure 151/100 H 08/26/22 12:27 Blood Pressure Position Sitting 08/26/22 12:27 Pulse Oximetry 100 08/26/22 12:27 Oxygen Delivery Method Room Air 08/26/22 12:27 Oxygen Flow Rate 0 08/26/22 12:27 Pain Level 0 08/26/22 12:27 Lab/Test Results Lab/Test Results: Laboratory Tests Range/Units 08/26/22 13:40 WBC (4.4-10.8) 10^3/uL 8.74 RBC (3.93-5.22) 10^6/uL 4.52 Hgb (11.2-15.7) g/dL 12.5 Hct (36.0-46.0) % 39.4 MCV (80-95) fL 87 MCH (27.0-33.0) pg 27.7 MCHC (32.0-36.0) % 31.7 L RDW (11.7-14.6) % 13.4 Plt Count (130-400) 10^3/uL 286 MPV (8.0-11.0) fL 8.3 Immature Gran % 0.3 Neutrophils % 77.0 Lymphocytes % 12.7 Monocytes % 7.3 Eosinophils % 2.4 Basophils % 0.3 Nucleated RBC % (0.0-0.3) % 0.0 Absolute Neutrophils (1.2-6.7) 10^3/uL 6.72 H Absolute Lymphocytes (1.2-3.4) 10^3/uL 1.11 L Absolute Monocytes (0.1-0.8) 10^3/uL 0.64 Absolute Eosinophils (0.0-0.7) 10^3/uL 0.21 Absolute Basophils (0.0-0.2) 10^3/uL 0.03
[2022-08-26 14:03] LABS: ALT 33 U/L (14-59); AST 17 U/L (15-37); Albumin 3.6 g/dL (3.4-5.0); Alkaline Phosphatase 114 U/L (46-116); Anion Gap 5.5 mmol/L (3-11); BUN 12 mg/dL (7-18); Bilirubin, Total 0.5 mg/dL (0.2-1.0); CO2 28.5 mmol/L (21.0-32.0); CREATININE 0.8 mg/dL (0.55-1.02); Calcium 9.5 mg/dL (8.5-10.1); Chloride 106 mmol/L (98-107); Estimated GFR 80.21 (mL/min/1.73m2); Glucose 104 mg/dL (74-106); Potassium 3.8 mmol/L (3.5-5.1); Sodium 140 mmol/L (136-145); Total Protein 8.5 g/dL (6.4-8.2)
[2022-08-26] MEDS: Pantoprazole 40 MG VIAL 80 MG IVP (14:04)
[2022-08-26 16:36] LABS: HCT 38.4 % (36.0-46.0); HGB 12.3 g/dL (11.2-15.7); MCH 27.8 pg (27.0-33.0); MCV 87 fL (80-95); MPV 8.3 fL (8.0-11.0); Platelet Count 300 10^3/uL (130-400); RBC 4.42 10^6/uL (3.93-5.22); RDW 13.3 % (11.7-14.6); RDW-SD 42.3 fL; WBC 9.77 10^3/uL (4.4-10.8)
--- NOTE | 2022-08-26 17:21 | W.EDPROG ---
Date of service: 08/26/22 Time of Service: 17:00 Medical Decision Making 1700-received patient in signout. Patient pending transfer to [facility] for GI bleed. Patient signed out pending repeat hemoglobin and monitoring pending bed availability. Did review patient's repeat hemoglobin which was 12.3 so I do not feel that we should stop anticoagulation at this point or infuse blood products. We will continue to monitor. [id number] here to transport patient. Patient remained in stable condition with no change in complaints pending transfer to appropriate facility. Lab Data Lab results reviewed: Yes I reviewed the patient's lab results. Sign Out Sign Out Data: Sign Out Comment: Pending transfer. Follow-up repeat Hb. Last updated by Lebron Proctor MD at 08/26/22 17:04 Discharge Plan Disposition Patient Disposition: Transfer-Acute Inpatient Care Specific Acute Inpt Facility: [facility] Condition: Serious Discharge Details Clinical Impression: Acute lower gastrointestinal bleeding Primary Care Provider: Tom Stephens ED Provider: Jered Taylor Home Meds and New Rx's Prescriptions: No Action Metamucil (sugar) Powder 2 tsp PO DAILY fluticasone propionate [Flovent HFA] 220 mcg/actuation HFA aerosol inhaler 2 puff inhalation BID carvedilol 25 mg tablet 25 mg PO BID Qty: 180 3RF Rx Instructions: must administer with a meal/food lisinopril 30 mg tablet 30 mg PO DAILY atorvastatin 20 mg tablet 20 mg PO QHS Eliquis 5 mg tablet 5 mg PO BID levothyroxine 50 mcg capsule 75 mcg PO DAILY Discharge Data Discharge Date/Time-TO BE ENTERED AT DEPARTURE: 08/26/22 17:49
--- NOTE | 2022-08-26 17:25 | NUR.NOTE ---
Nursing Note: Report called to [facility] RN.
== END 2022-08-26 17:49 | disposition short-term general hospital (02) ==
PROVIDERS: Student in an Organized Health Care Education/Training Program; Emergency Provider Nurse Practitioner Family; PCP Physician Assistant
DX: K92.2 Gastrointestinal hemorrhage, unspecified (principal); I48.91 Unspecified atrial fibrillation
CPT/HCPCS: 80053; 85027; 86850; 86900; 86901; 96374; 99285; 85025

== ENCOUNTER 2022-10-07 14:37 | Outpatient (REF) | payer MEDICARE, SELFPAY ==
[2022-10-07 20:03] LABS: Hemoglobin A1C 5.5 % (<5.7)
[2022-10-07 20:07] LABS: TSH 1.43 uIU/mL (0.36-3.74)
== END 2022-10-07 14:38 | disposition home or self-care (01) ==
LOC: NCHCN 14:37
PROVIDERS: PCP Physician Assistant; Visit Provider Physician Assistant
DX: R73.03 Prediabetes (principal); E03.9 Hypothyroidism, unspecified
CPT/HCPCS: 83036; 84443

== ENCOUNTER → 2023-03-23 12:39 | Outpatient (BNVA) | payer MEDICARE, SELFPAY | PROVIDERS: PCP Physician Assistant; Referring Provider Physician Assistant; Visit Provider Internal Medicine Cardiovascular Disease | DX: I48.20 Chronic atrial fibrillation, unspecified (principal); Z79.01 Long term (current) use of anticoagulants; I10 Essential (primary) hypertension | CPT/HCPCS: 99213 ==

== ENCOUNTER → 2023-04-07 01:39 | Outpatient (CLI) | payer MEDICARE, SELFPAY ==
--- NOTE | 2023-04-07 08:04 | DI.MAMMO_ITS ---
Exam(s) MAMMO SCREENING EXAM: MAMMO SCREENING CLINICAL HISTORY: SCREENING MAMMO FOR BREAST CANCER Z12.31 TECHNIQUE: Bilateral full field digital CC and MLO mammographic images were obtained with 3D [employer] thesis and utilizing computer aided detection (CAD). COMPARISON: 2013 through 2021 FINDINGS: Masses/Architectural Distortion: None seen. Microcalcifications: No suspicious pleomorphic-type are seen. Skin Thickening/Nipple Retraction: None. IMPRESSION: 1. No significant interval change with no specific features of malignancy noted. 2. Unless there is more urgent need, screening mammography is recommended, as per [employer] guidelines. BI-RADS Category 1 - Negative Breast Density - Category B - Scattered areas of fibroglandular density A negative radiographic report should not delay biopsy if a dominant or clinically suspicious mass is present. Up to ten percent of cancers are not identified on mammography. A negative report may reinforce clinical impression. Adenosis and dense breasts may obscure an underlying neoplasm. False positive reports average 6 to 10%. Patient will receive a letter notifying them of these results.
== END ==
PROVIDERS: PCP Physician Assistant; Visit Provider Physician Assistant
DX: Z12.31 Encounter for screening mammogram for malignant neoplasm of breast (principal)
CPT/HCPCS: 77063; 77067

== ENCOUNTER 2023-04-21 12:39 | Emergency (ER) | payer MEDICARE, SELFPAY ==
[2023-04-21] VITALS (15 sets, daily range): BP systolic 170; BP diastolic 90; PULSE 85–97; RESP 18; TEMP 36.6; O2SAT 83–100
--- NOTE | 2023-04-21 13:02 | W.ED.GENAD ---
HPI General Stated Complaint: GI Bleed Mode of arrival: ambulatory. BREE: 3 Date/Time Provider Initiated Documentation: 04/21/23 12:43. Limitations to Documentation: no limitations. Information obtained by: patient. History of Present Illness blood in stools moderate day(s) (1) intermittent No relieving factors improve symptom(s), No exacerbating factors reported denies chest pain, fever/chills, shortness of breath and syncope none Related Data Home Medications Medication Instructions Recorded Confirmed apixaban 5 mg tablet (Eliquis) 5 mg PO BID 03/28/19 03/23/23 atorvastatin 20 mg tablet 20 mg PO QHS 03/28/19 03/23/23 psyllium seed (sugar) oral powder 2 tsp PO DAILY 07/19/20 03/23/23 (Metamucil (sugar) oral powder) fluticasone propionate 220 2 puff inhalation BID 07/22/22 03/23/23 mcg/actuation HFA aerosol inhaler (Flovent HFA) levothyroxine 50 mcg capsule 75 mcg PO DAILY 07/22/22 03/23/23 carvedilol 25 mg tablet 25 mg PO BID #180 tabs 01/19/23 03/23/23 lisinopril 20 1 tab PO DAILY 03/23/23 03/23/23 mg-hydrochlorothiazide 12.5 mg tablet Previous Rx's Medication Instructions Recorded carvedilol 25 mg tablet 25 mg PO BID #180 tabs 01/19/23 Allergies Allergy/AdvReac Type Severity Reaction Status Date / Time penicillin V potassium Allergy Intermediate rash Verified 03/23/23 12:56 [From Pen-Vee K] albuterol Allergy Mild Verified 03/23/23 12:56 amoxicillin [From Augmentin] Allergy Verified 03/23/23 12:56 clavulanic acid Allergy Verified 03/23/23 12:56 [From Augmentin] Penicillins Allergy Verified 03/23/23 12:56 Review of Systems All systems reviewed & are unremarkable except as noted in HPI and below Constitutional Constitutional: Denies chills, Denies fever(s) and Denies weakness Cardiovascular Cardiovascular: Denies chest pain and Denies dyspnea Respiratory Respiratory: Denies cough and Denies dyspnea Gastrointestinal Gastrointestinal: Denies nausea and Denies vomiting Musculoskeletal Musculoskeletal: Denies joint swelling Neurologic Neurologic: Denies weakness PFSH All Active Problems (Updated 04/21/23 @ 15:32 by Gavin Swanson MD) Lower GI bleed (Acute) LLQ abdominal pain (Acute) Atrial fibrillation, chronic (Acute) Hypertension (Chronic) H/O: CVA (cerebrovascular accident) (Chronic) Diverticulitis (Acute) Diverticula of colon (Chronic) Anemia due to acute blood loss (Acute) Lower GI bleed (Acute) GI bleed (Acute) Abscessed tooth (Acute) Atrial fibrillation (Chronic) Asthma (Chronic) Nonhealing skin ulcer (Chronic) RLE Vitamin D deficiency (Chronic) Anemia (Chronic) Sleep apnea (Chronic) Uses CPAP Allergic rhinitis (Chronic) Hypothyroidism (Chronic) Hypertension, essential, benign (Chronic) Lump in neck (Acute) jugular notch Medical History (Updated 04/21/23 @ 15:32 by Gavin Swanson MD) Thrombotic stroke involving cerebral artery TIA (transient ischemic attack) Obesity (BMI 30.0-34.9) Deviated nasal septum Diverticulitis 2011 and 2013 Surgical History History of esophagogastroduodenoscopy (EGD) Colonoscopy - [facility] (08/10/17) Family History Maternal Grandfather Heart disease Mother Diabetes Hypertension Pancreatic cancer Maternal Grandmother Diabetes Father Head and neck cancer Brain cancer Other Diverticulitis Social History Smoking/Tobacco Use Status: Never Smoking risk assessment performed?: Yes Alcohol Intake: current Alcohol Intake frequency: holidays/special occasions only Alcohol type: beer Drug use: Never Substance use type: does not use What type of physical activity do you participate in: walking Duration: 15-30 minutes/day Frequency: daily Do you feel safe at home: Yes Do you feel safe in your relationship?: Yes Exam Const General: no acute distress Orientation: alert HENMT Head: normal to inspection Ears: external ears normal General nose exam: external nose normal Mouth: moist mucous membranes Eyes General: appearance normal, both eyes and all related structures Neck Neck: normal visual inspection Resp Effort & Inspection: normal respiratory effort and able to speak in complete sentences Cardio Rate: regular rate GI Palpation: soft, not firm and no guarding Skin General skin exam: no rashes or lesions noted Neuro General: patient alert and patient oriented x3 Extrem General: normal to inspection Psych Mental Status: mental status grossly normal Course Vital Signs Vital signs: Vital Signs Pulse 85 04/21/23 12:42 Respiratory Rate 18 04/21/23 12:42 Blood Pressure 170/90 H 04/21/23 12:42 Pulse Oximetry 99 04/21/23 12:42 Pulse 85 04/21/23 12:42 Respiratory Rate 18 04/21/23 12:42 Respiratory Effort Normal, Non-Labored 04/21/23 12:49 Blood Pressure 170/90 H 04/21/23 12:42 Blood Pressure Position Supine 04/21/23 12:42 Pulse Oximetry 99 04/21/23 12:42 Oxygen Delivery Method Room Air 04/21/23 12:42 Oxygen Flow Rate 0 04/21/23 12:42 Pain Level 0 04/21/23 12:42 Medical Decision Making 68 yo female with hx of afib on eliquis, who had a lower gi bleed last August and transferred to [facility] at that time as no general surgeon available here, who comes in stating last night and this morning she had a small amount of blood in her stool, not bright red and wasn't a lot of blood, didn't have blood in the toilet water just the stool. She had some llq earlier, no vomiting, no chest pain or dyspnea and states she feels well otherwise. She is caox4 on arrival speaking clearly. She has a soft nontender abdomen, does have a small nonthrombosed hemorrhoid with no active bleeding on rectal exam at the 7oclcock position taht is not painful, no internal bleeding currently. 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 She is stable and has not had recurrent bleeding here. Given hemodynamic stability and stable h/h discussed obs admission vs outpatient follow up and she prefers outpatient and I feel this is reasonable. Discussed risks of holding elquis vs resuming it and at this time will hold eliquis until she follows up with the general surgeon and possible colonoscopy. I have placed her on our follow up list to see our general surgeon's preferably this week if unable to reach her [facility] surgeons for follow up. She will also tell her pcp about the pancreatic cysts to see if she needs another pancreatic mri. She is stable for d/c, return precautions given Differential Diagnosis Differential Diagnosis: hemorrhoid, avm Medical Records Medical records reviewed: Yes I reviewed the patient's medical records. Imaging Data Radiologic Study: Attestation: I personally reviewed and interpreted this imaging study as follows: Imaging: CT Scan Radiologist's impression: IMPRESSION: 1. There is evidence of previous partial sigmoid resection. There are multiple diverticuli in the region of and proximal to the anastomosis but no evidence of obvious acute diverticulitis nor evidence of bowel obstruction at this level. There also diverticuli scattered throughout the colon both sides without evidence of acute inflammatory process. No obvious colitis pattern. No small bowel obstruction. No appendicitis. 2. Although the previously described (March 2019 CT at outside institution) 8 millimeter pancreatic tail hypoattenuating lesion appears unchanged, there is now a new larger hypoattenuating cystic appearing mass in the pancreatic head measuring 19 x 15 x 15 mm, not appearing obviously septated.. No associated pancreatic duct dilatation nor pancreatic calcifications nor peripancreatic fluid nor regional lymphadenopathy, nor vascular encasement. Given the finding in the pancreatic tail this is probably an other pancreatic cystic neoplasm. Recommend contrast infused MRI with pancreatic protocol sequences for further evaluation. 3. The adjacent CBD is not dilated and there are no lesions in the liver. Lab Data Lab results reviewed: Yes I reviewed the patient's lab results. Quality:SDOH Health Related Social Needs: No Data to Display Discharge Plan Disposition Patient Disposition: Home Discharge Details Clinical Impression: LLQ abdominal pain, Lower GI bleed Primary Care Provider: Tom Stephens ED Provider: Gavin Swanson Home Meds and New Rx's Prescriptions: Continued lisinopril-hydrochlorothiazide 20-12.5 mg tablet 1 tab PO DAILY Metamucil (sugar) Powder 2 tsp PO DAILY fluticasone propionate [Flovent HFA] 220 mcg/actuation HFA aerosol inhaler 2 puff inhalation BID atorvastatin 20 mg tablet 20 mg PO QHS levothyroxine 50 mcg capsule 75 mcg PO DAILY carvedilol 25 mg tablet 25 mg PO BID Qty: 180 3RF Rx Instructions: must administer with a meal/food Held Eliquis 5 mg tablet 5 mg PO BID Hold Instructions: Resume on 04/27/23. hold until you follow up with your surgeon and discuss colonoscopy Discharge Instructions Additional Instructions: You did not have significant bleeding on rectal exam, you did have a small nonpainful hemorrhoid. Your blood counts were normal and your cat scan did not show any emergent findings. You do have pancreatic cysts that your primary care provider should be made aware of, if you haven't had a pancreatic MRI done recently they may want to order a new one. follow up with either your [facility] general surgeon's or the [facility] general surgeons, who ever could see you sooner if you feel more ill, have severe abdominal pain or persistent uncontrolled bleeding return to the emergency department
[2023-04-21 13:20] LABS: Abs Immature Grans 0.03 10^3/uL (0.0-0.06); Absolute Basophil Count 0.05 10^3/uL (0.0-0.2); Absolute Eosinophil Count 0.17 10^3/uL (0.0-0.7); Absolute Lymphocyte Count 1.37 10^3/uL (1.2-3.4); Absolute Monocyte Count 0.59 10^3/uL (0.1-0.8); Basophils % 0.6; Eosinophils % 2.1; HCT 40.6 % (36.0-46.0); HGB 13.4 g/dL (11.2-15.7); Immature Grans % 0.4; Lymphocytes % 17.1; MCH 28.2 pg (27.0-33.0); MCV 86 fL (80-95); MPV 8.4 fL (8.0-11.0); Monocytes % 7.4; Neutrophils % 72.4; Platelet Count 250 10^3/uL (130-400); RBC 4.75 10^6/uL (3.93-5.22); RDW 13.5 % (11.7-14.6); RDW-SD 42.5 fL; WBC 8.01 10^3/uL (4.4-10.8)
[2023-04-21 13:30] LABS: INR 1.1 (0.9-1.1); PTT Activated 29.9 sec (23.6-32.8)
[2023-04-21 13:33] LABS: ALT 28 U/L (14-59); AST 25 U/L (15-37); Albumin 3.7 g/dL (3.4-5.0); Alkaline Phosphatase 102 U/L (46-116); Anion Gap 5.9 mmol/L (3-11); BUN 14 mg/dL (7-18); Bilirubin, Total 0.9 mg/dL (0.2-1.0); CO2 29.1 mmol/L (21.0-32.0); CREATININE 0.8 mg/dL (0.55-1.02); Calcium 9.7 mg/dL (8.5-10.1); Chloride 102 mmol/L (98-107); Estimated GFR 79.71 (mL/min/1.73m2); Glucose 102 mg/dL (74-106); Lipase 43 U/L (16-77); Magnesium 2.3 mg/dL (1.8-2.4); Potassium 3.6 mmol/L (3.5-5.1); Sodium 137 mmol/L (136-145); Total Protein 8.4 g/dL (6.4-8.2)
[2023-04-21] MEDS: Omnipaque 350 MG/ML 100 ML BTL IJ (14:39)
[2023-04-21] MEDS: Normal Saline - Diluent 50 ML VIAL IJ (14:41)
--- NOTE | 2023-04-21 14:45 | DI.CT_ITS ---
Exam(s) CT ABDOMEN PELVIS W EXAM: CT ABDOMEN PELVIS W CLINICAL HISTORY: llq abdominal pain. TECHNIQUE: Imaging Protocol: Axial computed tomography images with coronal and sagittal reformatted images were created and reviewed CONTRAST MATERIAL: Intravenous: Omnipaque-350 100cc Oral: None COMPARISON: CT CT ANGIOGRAM ABDOMEN AND PELVIS WWO CONTRAST from 03/24/2019from outside institution. FINDINGS: VISUALIZED LUNG BASES: No nodules nor pleural effusions evident. ABDOMEN: There is no ascites. LIVER: There are no focal hepatic lesions evident. No dilated intrahepatic ducts. GALLBLADDER/BILIARY: No obvious gallbladder pathology. CBD is not dilated. PANCREAS: The previously described 8 millimeter hypoattenuating lesion in the pancreatic tail region exhibits minimal if any significant change. However, there is now a new prominent cystic mass in the pancreatic head measuring 1.9 cm AP by 1.5 cm wide by 1.5 cm cephalocaudal. Probable cystic neoplas m. Does not appear obviously septated. There is no abnormal stranding nor adenopathy within the adj acent retroperitoneal fat tissues. No vascular encasement. This cystic lesions slightly impresses u escobar the adjacent duodenal wall. The pancreatic duct is not dilated. There are no pancreatic calcifi cations. No peripancreatic fluid collections. Uncinate process of the pancreas retains normal trian gular configuration. Adjacent CBD is not dilated. SPLEEN: Spleen is not enlarged. No obvious intrasplenic lesions. Splenic and portal veins are paten t. ADRENALS: There are no significant adrenal masses. KIDNEYS:No cysts evident. No solid renal masses. No calculi nor hydronephrosis.. ABDOMINAL AORTA: Upper normal diameter. Common iliac arteries also without aneurysmal dilatation. LYMPH NODES:There is no retroperitoneal nor paraaortic adenopathy. ABDOMINAL WALL: No evidence of significant anterior abdominal wall nor inguinal hernia. GI: There is no evidence of bowel obstruction, free air, nor abscess. PELVIS: GI: No evidence of appendicitis.There is evidence of partial sigmoid resection. No obvious abnormali ty at the anastomosis. There are multiple diverticuli above this level without evidence of obvious d iverticulitis. No free fluid. No free air. LYMPH NODES: There is no intrapelvic nor inguinal adenopathy. REPRODUCTIVE: Uterus and adnexal regions unremarkable. No free fluid. URINARY BLADDER: Mildly distended. No obvious masses nor intraluminal calculi. OSSEOUS: No fractures nor significant osseous lesions. IMPRESSION: 1. There is evidence of previous partial sigmoid resection. There are multiple diverticuli in the re gion of and proximal to the anastomosis but no evidence of obvious acute diverticulitis nor evidence of bowel obstruction at this level. There also diverticuli scattered throughout the colon both sides without evidence of acute inflammatory process. No obvious colitis pattern. No small bowel obstruc tion. No appendicitis. 2. Although the previously described (March 2019 CT at outside institution) 8 millimeter pancreati c tail hypoattenuating lesion appears unchanged, there is now a new larger hypoattenuating cystic lucia earing mass in the pancreatic head measuring 19 x 15 x 15 mm, not appearing obviously septated.. No associated pancreatic duct dilatation nor pancreatic calcifications nor peripancreatic fluid nor kartik onal lymphadenopathy, nor vascular encasement. Given the finding in the pancreatic tail this is prob ably an other pancreatic cystic neoplasm. Recommend contrast infused MRI with pancreatic protocol se quences for further evaluation. 3. The adjacent CBD is not dilated and there are no lesions in the liver. Findings called by myself to the ER physician 04/21/2023 3:15 p.m. RADIATION DOSE DELIVERED: 904.85mGy.cm Total DLP DATA REPOSITORY: All CT scans at this facility are submitted to the National Radiology Data Registry (NRDR) Dose Index Registry (DIR) with the [employer] (A[employer]). RADIATION OPTIMIZATION: All CT scans at this facility use at least one of these dose optimization te chniques: automated exposure control; mA and/or kV adjustment per patient size (includes targeted exa ms where dose is matched to clinical indication); or iterative reconstruction.
--- NOTE | 2023-04-21 15:28 | NUR.NOTE ---
Referral faxed to [facility] to be seen for a Lower GI Bleed, sometime this week.
== END 2023-04-21 15:53 | disposition home or self-care (01) ==
PROVIDERS: Emergency Provider Emergency Medicine; PCP Physician Assistant
DX: K92.1 Melena (principal); I48.91 Unspecified atrial fibrillation; Z79.01 Long term (current) use of anticoagulants; Z87.19 Personal history of other diseases of the digestive system; Z90.49 Acquired absence of other specified parts of digestive tract; I10 Essential (primary) hypertension; E03.9 Hypothyroidism, unspecified; Z86.73 Personal history of transient ischemic attack (TIA), and cerebral infarction without residual deficits; Z53.29 Procedure and treatment not carried out because of patient's decision for other reasons
CPT/HCPCS: 36415; 80053; 83690; 86850; 86900; 86901; 99285; 74177; 83735; 85025; 85610; 85730; J3490

== ENCOUNTER → 2023-05-05 10:49 | Outpatient (BNVA) | payer MEDICARE, SELFPAY | PROVIDERS: PCP Physician Assistant; Referring Provider Physician Assistant; Visit Provider Surgery | DX: K92.2 Gastrointestinal hemorrhage, unspecified (principal) | CPT/HCPCS: 99214 ==

== ENCOUNTER 2023-05-20 12:57 | Outpatient (REF) | payer MEDICARE, SELFPAY ==
[2023-05-20 15:06] LABS: HCT 39.4 % (36.0-46.0); HGB 13.2 g/dL (11.2-15.7); MCH 28.9 pg (27.0-33.0); MCHC 33.5 % (32.0-36.0); MCV 86 fL (80-95); Platelet Count 230 10^3/uL (130-400); RBC 4.56 10^6/uL (3.93-5.22); RDW 13.7 % (11.7-14.6); RDW-SD 43.3 fL; WBC 6.95 10^3/uL (4.4-10.8)
[2023-05-20 15:52] LABS: ALT 34 U/L (14-59); AST 19 U/L (15-37); Albumin 3.6 g/dL (3.4-5.0); Alkaline Phosphatase 105 U/L (46-116); Anion Gap 10.7 mmol/L (3-11); BUN 19 mg/dL (7-18); Bilirubin, Total 0.8 mg/dL (0.2-1.0); CO2 28.3 mmol/L (21.0-32.0); CREATININE 0.9 mg/dL (0.55-1.02); Calcium 9.2 mg/dL (8.5-10.1); Calculated LDL 76 mg/dL (<100); Chloride 102 mmol/L (98-107); Cholesterol 145 mg/dL (<200); Glucose 101 mg/dL (74-106); HDL Cholesterol 48 mg/dL (40-60); Potassium 3.7 mmol/L (3.5-5.1); Sodium 141 mmol/L (136-145); TSH 2.18 uIU/mL (0.36-3.74); Total Protein 7.8 g/dL (6.4-8.2); Triglyceride 106 mg/dL (<150)
[2023-05-20 15:57] LABS: Hemoglobin A1C 5.9 % (<5.7)
== END 2023-05-20 12:58 | disposition home or self-care (01) ==
LOC: NCHCN 12:57
PROVIDERS: PCP Physician Assistant; Visit Provider Physician Assistant
DX: E78.5 Hyperlipidemia, unspecified (principal); R73.03 Prediabetes; I48.91 Unspecified atrial fibrillation
CPT/HCPCS: 80053; 80061; 85027; 83036; 84443

== ENCOUNTER 2023-11-17 19:15 | Outpatient (REF) | payer MEDICARE, SELFPAY ==
[2023-11-17 20:57] LABS: Abs Immature Grans 0.01 10^3/uL (0.0-0.06); Absolute Basophil Count 0.04 10^3/uL (0.0-0.2); Absolute Eosinophil Count 0.22 10^3/uL (0.0-0.7); Absolute Monocyte Count 0.54 10^3/uL (0.1-0.8); Absolute Neutrophil Count 4.67 10^3/uL (1.2-6.7); Basophils % 0.6 %; Eosinophils % 3.2 %; HCT 38.6 % (36.0-46.0); HGB 12.3 g/dL (11.2-15.7); Immature Grans % 0.1 %; Lymphocytes % 19.2 %; MCHC 31.9 % (32.0-36.0); MCV 88 fL (80-95); MPV 9.5 fL (8.0-11.0); Neutrophils % 68.9 %; Platelet Count 239 10^3/uL (130-400); RDW 13.4 % (11.7-14.6); RDW-SD 43.3 fL; WBC 6.78 10^3/uL (4.4-10.8)
== END 2023-11-17 19:16 | disposition home or self-care (01) ==
LOC: NCHCN 19:15
PROVIDERS: PCP Physician Assistant; Visit Provider Physician Assistant
DX: R23.3 Spontaneous ecchymoses (principal)
CPT/HCPCS: 85025

== ENCOUNTER 2023-12-29 01:36 | Emergency (ER) | payer MEDICARE, SELFPAY ==
[2023-12-29] VITALS (57 sets, daily range): BP systolic 42–122; BP diastolic 14–103; PULSE 52–115; RESP 9–24; TEMP 36.9; O2SAT 95–100
--- NOTE | 2023-12-29 01:45 | DI.CT_ITS ---
Exam(s) CT ABDOMEN PELVIS W EXAM: CT ABDOMEN PELVIS W CLINICAL HISTORY: lower abdominal pain, bloody stool, vomiting. TECHNIQUE: Imaging Protocol: Axial computed tomography images with coronal and sagittal reformatted images were created and reviewed CONTRAST MATERIAL: Intravenous: Omnipaque-350 100cc Oral: None COMPARISON: CT CT ABDOMEN PELVIS W from 04/21/2023 FINDINGS: VISUALIZED LUNG BASES: No nodules nor pleural effusions evident. ABDOMEN: GI: There is active extravasation injected IV contrast into the lumen of the hepatic flexure of the c olon evident. Consistent with active hemorrhage. There does not appear to be an obvious mass at thi s level. Is also noted this patient has had prior partial sigmoid resection. LIVER: There are no focal hepatic lesions evident. No dilated intrahepatic ducts. GALLBLADDER/BILIARY: No obvious gallbladder pathology. CBD is not dilated. PANCREAS: The previously described cystic lesions in the pancreatic head and tail appear stable in si ze. SPLEEN: Spleen is not enlarged. No obvious intrasplenic lesions. Splenic and portal veins are paten t. ADRENALS: There are no significant adrenal masses. KIDNEYS:No cysts evident. No solid renal masses. No calculi nor hydronephrosis.. ABDOMINAL AORTA: Abdominal aorta is not enlarged. LYMPH NODES:There is no retroperitoneal nor paraaortic adenopathy. ABDOMINAL WALL: No evidence of significant anterior abdominal wall nor inguinal hernia. GI: There is no evidence of bowel obstruction, free air, nor abscess. PELVIS: GI: No evidence of appendicitis.No evidence of sigmoid diverticulitis. LYMPH NODES: There is no intrapelvic nor inguinal adenopathy. REPRODUCTIVE: The endometrium of the uterus appears to be enhancing, possibly significant in this age group. No obvious uterine fibroids. No abnormal adnexal masses. URINARY BLADDER: No calculi nor obvious masses evident OSSEOUS: No fractures and no significant osseous lesions. IMPRESSION: 1. There is extravasation of intravascular contrast into the lumen of the a Paddock flexure of the co danny consistent with acute hemorrhage at this level. There are local colonic diverticuli which may be the source. No obvious: Wall thickening at this level to suggest obvious neoplasm as the cause. Th ere is moderate distension with blood of the lumen of the transverse colon distal to this level. 2. Previous partial sigmoid resection incidentally noted. 3. Previously documented cystic lesions in the head and tail the pancreas are again noted. The shoul d be further studied with MRI. 4. RADIATION DOSE DELIVERED: 494.32mGy.cm Total DLP DATA REPOSITORY: All CT scans at this facility are submitted to the National Radiology Data Registry (NRDR) Dose Index Registry (DIR) with the [employer] (ACR). RADIATION OPTIMIZATION: All CT scans at this facility use at least one of these dose optimization te chniques: automated exposure control; mA and/or kV adjustment per patient size (includes targeted exa ms where dose is matched to clinical indication); or iterative reconstruction.
[2023-12-29] MEDS: Lactated Ringers 1,000 ML 1000 ML IV (02:02)
[2023-12-29 02:04] LABS: Abs Immature Grans 0.05 10^3/uL (0.0-0.06); Absolute Basophil Count 0.05 10^3/uL (0.0-0.2); Absolute Eosinophil Count 0.23 10^3/uL (0.0-0.7); Absolute Neutrophil Count 6.69 10^3/uL (1.2-6.7); Basophils % 0.6 %; Eosinophils % 2.6 %; HCT 35.4 % (36.0-46.0); HGB 11.3 g/dL (11.2-15.7); Immature Grans % 0.6 %; Lymphocytes % 15.7 %; MCH 28.5 pg (27.0-33.0); MCHC 31.9 % (32.0-36.0); MCV 89 fL (80-95); MPV 8.4 fL (8.0-11.0); Monocytes % 5.6 %; Neutrophils % 74.9 %; Platelet Count 248 10^3/uL (130-400); RBC 3.97 10^6/uL (3.93-5.22); RDW 13.6 % (11.7-14.6); RDW-SD 44.8 fL; WBC 8.92 10^3/uL (4.4-10.8)
[2023-12-29] MEDS: Ondansetron 4 MG/2 ML VIAL IVP (02:08)
[2023-12-29] MEDS: ACETAMINOPHEN 1,000 MG/100 ML BTL 400 MG IVPB (02:08)
[2023-12-29 02:18] LABS: ALT 21 U/L (14-59); AST 17 U/L (15-37); Albumin 3.5 g/dL (3.4-5.0); Alkaline Phosphatase 87 U/L (46-116); Anion Gap 5.9 mmol/L (3-11); BUN 19 mg/dL (7-18); CO2 28.1 mmol/L (21.0-32.0); Calcium 9.1 mg/dL (8.5-10.1); Chloride 102 mmol/L (98-107); Estimated GFR 60.98 (mL/min/1.73m2); Glucose 156 mg/dL (74-106); Lipase 53 U/L (16-77); Potassium 3.8 mmol/L (3.5-5.1); Sodium 136 mmol/L (136-145); Total Protein 7.9 g/dL (6.4-8.2)
[2023-12-29] MEDS: Omnipaque 350 MG/ML 100 ML BTL IJ (02:18)
[2023-12-29] MEDS: Normal Saline Flush 10 ML SYR IVP (02:19)
[2023-12-29] MEDS: Normal Saline - Diluent 50 ML VIAL IJ (02:19)
--- NOTE | 2023-12-29 02:19 | W.ED.GENAD ---
Discharge Plan Disposition Patient Disposition: Transfer-Acute Inpatient Care Specific Acute Inpt Facility: [facility] Condition: Critical Discharge Details Clinical Impression: Acute lower GI hemorrhage, Anticoagulant long-term use, Hemorrhagic shock Primary Care Provider: Tom Stephens ED Provider: Micah Martin Home Meds and New Rx's Prescriptions: No Action lisinopril-hydrochlorothiazide 20-12.5 mg tablet 1 tab PO DAILY Metamucil (sugar) Powder 2 tsp PO DAILY fluticasone propionate [Flovent HFA] 220 mcg/actuation HFA aerosol inhaler 2 puff inhalation BID atorvastatin 20 mg tablet 20 mg PO QHS levothyroxine 50 mcg capsule 75 mcg PO DAILY carvedilol 25 mg tablet 25 mg PO BID Qty: 180 3RF Rx Instructions: must administer with a meal/food rivaroxaban [Xarelto] PO DAILY HPI General Date/Time Provider Initiated Documentation: 12/29/23 01:42. HPI Narrative: This is a pleasant 68-year-old female with a past medical history of diverticulosis and diverticulitis, atrial fibrillation previously on Eliquis now on Xarelto secondary to cost, previous CVA, hypertension, previous GI bleeds, who presents today for evaluation of blood in her stool. Patient states that she has been doing well, then this evening she developed some mild achiness in the lower abdomen which she describes as feeling like she needs to let out some gas but is unable to. She denies any fever or chills. She did have a few episodes of vomiting at home which is also atypical. She denies any chest pain or shortness of breath. Few hours ago she went to have a small bowel movement and it turned out to be bright red blood. She denies seeing any blood in her vomitus. She denies any urinary discomfort. No hematuria recently. No other complaints at this time. No medication changes otherwise recently. Related Data Home Medications ?Medication ?Instructions ?Recorded ?Confirmed atorvastatin 20 mg tablet 20 mg PO QHS 03/28/19 12/29/23 psyllium seed (sugar) oral powder 2 tsp PO DAILY 07/19/20 12/29/23 (Metamucil (sugar) oral powder) fluticasone propionate 220 2 puff inhalation BID 07/22/22 12/29/23 mcg/actuation HFA aerosol inhaler (Flovent HFA) levothyroxine 50 mcg capsule 75 mcg PO DAILY 07/22/22 12/29/23 carvedilol 25 mg tablet 25 mg PO BID #180 tabs 01/19/23 12/29/23 lisinopril 20 1 tab PO DAILY 03/23/23 12/29/23 mg-hydrochlorothiazide 12.5 mg tablet rivaroxaban PO DAILY 12/29/23 Previous Rx's ?Medication ?Instructions ?Recorded carvedilol 25 mg tablet 25 mg PO BID #180 tabs 01/19/23 Allergies Allergy/AdvReac Type Severity Reaction Status Date / Time penicillin V potassium (From Allergy Intermediate rash Verified 12/29/23 01:43 Pen-Vee K) albuterol Allergy Mild Cardiac Verified 12/29/23 01:43 Dysrhythmia amoxicillin (From Augmentin) Allergy Skin Rash Verified 12/29/23 01:43 clavulanic acid (From Allergy Skin Rash Verified 12/29/23 01:43 Augmentin) Penicillins Allergy Skin Rash Verified 12/29/23 01:43 General Stated Complaint: GI Bleed BREE: 3 Review of Systems All systems reviewed & are unremarkable except as noted in HPI and below Exam Narrative Exam Narrative: 1.Const: Well-nourished, Well-developed, appearing stated age 2.Eyes: PERRL, no conjunctival injection, and symmetrical lids. 3.ENT: Atraumatic external nose and ears. Moist MM. Neck: Symmetric, trachea midline, No thyromegaly. 4.CVS: +S1/S2, No murmurs or gallops. Peripheral pulses 2+ and equal in all extremities. Brisk capillary refill in all extremities. 5.RESP: Unlabored respiratory effort. Clear to auscultation bilaterally. No wheezes rales or rhonchi 6.GI: Soft, Nontender/Nondistended, No hepatosplenomegaly. No guarding or rebound. 7.MSK: Normocephalic/Atraumatic, Extremities w/o deformity or ttp No cyanosis or clubbing, Normal movement of all extremities 8.Skin: Warm, Dry. No rashes or lesions. 9.Neuro: security and privacy consultant II-XII grossly intact. Sensation grossly intact, no focal neurologic deficits. 10.Psych: (AAO) x3. Appropriate mood and affect Course Vital Signs Vital signs: Vital Signs Temperature 36.9 C 12/29/23 01:39 Pulse 81 12/29/23 01:39 Respiratory Rate 16 12/29/23 01:39 Blood Pressure 110/73 12/29/23 01:39 Pulse Oximetry 99 12/29/23 01:39 Temperature 36.9 C 12/29/23 01:39 Temperature Source Oral 12/29/23 01:39 Pulse 81 12/29/23 01:39 Respiratory Rate 16 12/29/23 01:39 Respiratory Effort Normal, Non-Labored 12/29/23 01:42 Blood Pressure 110/73 12/29/23 01:39 Blood Pressure Position Sitting 12/29/23 01:39 Pulse Oximetry 99 12/29/23 01:39 Oxygen Delivery Method Room Air 12/29/23 01:39 Oxygen Flow Rate 0 12/29/23 01:39 Pain Level 7 12/29/23 01:39 Lab/Test Results Lab/Test Results: Laboratory Tests Range/Units 12/29/23 01:45 WBC (4.4-10.8) 10^3/uL 8.92 RBC (3.93-5.22) 10^6/uL 3.97 Hgb (11.2-15.7) g/dL 11.3 Hct (36.0-46.0) % 35.4 L MCV (80-95) fL 89 MCH (27.0-33.0) pg 28.5 MCHC (32.0-36.0) % 31.9 L RDW (11.7-14.6) % 13.6 Plt Count (130-400) 10^3/uL 248 MPV (8.0-11.0) fL 8.4 Immature Gran % % 0.6 Neutrophils % % 74.9 Lymphocytes % % 15.7 Monocytes % % 5.6 Eosinophils % % 2.6 Basophils % % 0.6 Nucleated RBC % (0.0-0.3) % 0.0 Absolute Neutrophils (1.2-6.7) 10^3/uL 6.69 Absolute Lymphocytes (1.2-3.4) 10^3/uL 1.40 Absolute Monocytes (0.1-0.8) 10^3/uL 0.50 Absolute Eosinophils (0.0-0.7) 10^3/uL 0.23 Absolute Basophils (0.0-0.2) 10^3/uL 0.05 Sodium (136-145) mmol/L 136 Potassium (3.5-5.1) mmol/L 3.8 Chloride (98-107) mmol/L 102 Carbon Dioxide (21.0-32.0) mmol/L 28.1 Anion Gap (3-11) mmol/L 5.9 BUN (7-18) mg/dL 19 H Creatinine (0.55-1.02) mg/dL 1.0 Est GFR (CKD-EPI 2020) (mL/min/1.73m2) 60.98 Glucose (74-106) mg/dL 156 H Calcium (8.5-10.1) mg/dL 9.1 Total Bilirubin (0.2-1.0) mg/dL 0.70 AST (15-37) U/L 17 ALT (14-59) U/L 21 Alkaline Phosphatase (46-116) U/L 87 Total Protein (6.4-8.2) g/dL 7.9 Albumin (3.4-5.0) g/dL 3.5 Lipase (16-77) U/L 53 Medical Decision Making This is a pleasant 68-year-old female with a past medical history of diverticulosis and diverticulitis, atrial fibrillation previously on Eliquis now on Xarelto secondary to cost, previous CVA, hypertension, previous GI bleeds, who presents today for evaluation of blood in her stool. Patient states that she has been doing well, then this evening she developed some mild achiness in the lower abdomen which she describes as feeling like she needs to let out some gas but is unable to. She denies any fever or chills. She did have a few episodes of vomiting at home which is also atypical. She denies any chest pain or shortness of breath. Few hours ago she went to have a small bowel movement and it turned out to be bright red blood. She denies seeing any blood in her vomitus. She denies any urinary discomfort. No hematuria recently. No other complaints at this time. No medication changes otherwise recently. Exam demonstrates well-appearing female, despite the achiness she feels in the lower abdomen there is no reproducible achiness or tenderness on palpation of the abdomen. No pain at McBurney's point, negative Grimm sign. Rectal exam was performed with nurse at bedside, there is no evidence of large hemorrhoid or active bleed currently. Suspect potential diverticular bleed, but with no active bleeding now, the differential for massive bleed is low. Will get a CT scan to evaluate for diverticulitis, pancreatitis remains on the differential and we will get labs, gently rehydrate, monitor closely and reassess. 4:48 AM Patient's hemoglobin is 11, lipase normal, troponin normal. Patient had a very large episode of bloody clots in active bleed. Protonix and famotidine were administered. Patient's blood pressure dropped to the 70s with this episode, second liter of fluid was administered, and 2 units of PRBCs were ordered. There was a delay in getting the blood secondary to a typing and crossing lab issue. Unfortunately the patient then subsequently had 2-3 more episodes of extremely bloody clots with a total of about a gallon plus of volume during these episodes patient's blood pressure would continually drop, and each return towards her more normal status would be lower on each episode. The most recent she dropped down to the 50s systolic, with a MAP in the 20s. CT scan shows evidence of an active blush and extravasation at the hepatic flexure. Distal to this is a small amount of inflammation of the colon. Initially we did reach out to surgery Dr. Wheeler, however because of the active blush there is the concern for need for potential interventional radiology. Because of the active bleed and weighing the risks and benefits, the decision was made to give Kcentra for anticoagulation reversal. With the patient's repeated continued active hemorrhage I do feel that emergent potential IR intervention is indicated. We did reach out to [facility] and they have refused transfer because of capacity. This is also the case for [facility]. We did reach out to the [facility], and they have kindly accepted the patient for emergent transfer. Discussed the case with she agrees with the assessment and plan. Will continue to aggressively medically manage the patient with blood, fluids, reversal agents as available. 5 AM Repeat hemoglobin has returned and the patient has had a 4 point drop during her stay here. FINDINGS: Heart: Cardiomegaly. Liver: Normal. No mass. Gallbladder and biliary ducts: Normal. No calcified stones. No ductal dilation. Pancreas: Indeterminate 1 cm hypoattenuating/cystic lesion of the lateral head of the pancreas. Similar subcentimeter round hypoattenuating/cystic lesion in the tail of the pancreas. Spleen: Normal. Adrenal glands: Normal. No mass. Kidneys and ureters: Normal. No hydronephrosis. Stomach and bowel: There is extravasation a fairly large amount intravascular contrast into the lumen of the hepatic flexure of the colon. The exact site of origin of the hemorrhage is not discernible as this is a single mixed arterial and venous phase study with respect to timing and the contrast is fairly spread throughout the periphery of the lumen of the hepatic flexure. There are multiple local colonic diverticula, any of which could be a potential site of hemorrhage. No evidence of colonic neoplasm. There is blood mildly to moderately distending the lumen of the hepatic flexure and transverse colon. Distal to the area of hemorrhage, there is mild inflammation and thickening of the wall of the distal transverse colon, compatible with mild colitis. No intestinal obstruction. Chronic postsurgical changes the sigmoid colon. No pneumatosis or portal/mesenteric venous gas. Appendix: Normal appendix. Intraperitoneal space: No pneumoperitoneum or abscess. Vasculature: See Stomach and bowel finding. Lymph nodes: Unremarkable. Urinary bladder: Unremarkable as visualized. Reproductive: Unremarkable as visualized. Bones/joints: Unremarkable. No acute fracture. Soft tissues: Unremarkable. IMPRESSION: 1. There is extravasation a fairly large amount intravascular contrast into the lumen of the hepatic flexure of the colon. The exact site of origin of the hemorrhage is not discernible as this is a single mixed arterial and venous phase study with respect to timing and the contrast is fairly spread throughout the periphery of the lumen of the hepatic flexure. There are multiple local colonic diverticula, any of which could be a potential site of hemorrhage. No evidence of colonic neoplasm. There is blood mildly to moderately distending the lumen of the hepatic flexure and transverse colon. 2. Distal to the area of hemorrhage, there is mild inflammation and thickening of the wall of the distal transverse colon, compatible with mild colitis. 3. Indeterminate 1 cm hypoattenuating/cystic lesion of the lateral head of the pancreas. Similar subcentimeter round hypoattenuating/cystic lesion in the tail of the pancreas. Thank you for allowing us to participate in the care of your patient. Dictated and Authenticated by: Ron Lazaro MD 12/29/2023 4:11 AM Eastern Time ([place] & [place]) Quality:SDOH Health Related Social Needs: No Data to Display Critical Care Time Critical Care Time Critical Care Time: Yes Total Critical Care Time: 120 Attestation: Upon my evaluation, this patient had a high probability of imminent or life-threatening deterioration, which required my direct attention, intervention, and personal management. I have personally provided 120 minutes of critical care time exclusive of time spent on separately billable procedures. Time includes review of laboratory data, radiology results, discussion with consultants, and monitoring for potential decompensation. Interventions were performed as documented. PFSH All Active Problems (Updated 12/29/23 @ 04:56 by Micah Martin DO) Hemorrhagic shock (Acute) Anticoagulant long-term use (Acute) Acute lower GI hemorrhage (Acute) Atrial fibrillation, chronic (Acute) Hypertension (Chronic) H/O: CVA (cerebrovascular accident) (Chronic) Diverticulitis (Acute) Diverticula of colon (Chronic) Anemia due to acute blood loss (Acute) Lower GI bleed (Acute) GI bleed (Acute) Abscessed tooth (Acute) Atrial fibrillation (Chronic) Asthma (Chronic) Nonhealing skin ulcer (Chronic) RLE Vitamin D deficiency (Chronic) Anemia (Chronic) Sleep apnea (Chronic) Uses CPAP Allergic rhinitis (Chronic) Hypothyroidism (Chronic) Hypertension, essential, benign (Chronic) Lump in neck (Acute) jugular notch Medical History (Updated 12/29/23 @ 04:56 by Micah Martin DO) Thrombotic stroke involving cerebral artery TIA (transient ischemic attack) Obesity (BMI 30.0-34.9) Deviated nasal septum Diverticulitis 2011 and 2013 Surgical History History of esophagogastroduodenoscopy (EGD) Colonoscopy - MAC (08/10/17) Family History Maternal Grandfather Heart disease Mother Diabetes Hypertension Pancreatic cancer Maternal Grandmother Diabetes Father Head and neck cancer Brain cancer Other Diverticulitis Social History Smoking/Tobacco Use Status: Never Smoking risk assessment performed?: Yes Alcohol Intake: current Alcohol Intake frequency: holidays/special occasions only Alcohol type: beer Drug use: Never Substance use type: does not use What type of physical activity do you participate in: walking Duration: 15-30 minutes/day Frequency: daily Do you feel safe at home: Yes Do you feel safe in your relationship?: Yes
[2023-12-29 02:55] LABS: Bilirubin Negative (Negative); Blood Moderate (Negative); Clarity Clear (Clear); Glucose Negative (Negative); Ketones Negative (Negative); Leukocyte Esterase Trace (Negative); Nitrite Negative (Negative); Specific Gravity 1.015 (1.005-1.025); Urobilinogen 0.2 mg/dL (Up to 0.2)
[2023-12-29 03:03] LABS: Bacteria Rare HPF (Negative); C & S Indicated? No; Casts Negative LPF (Negative); Crystals Negative HPF (Negative); Epithelial Cells Few HPF (Negative); Mucus Negative (Negative); RBC 0-2 HPF (0-2)
[2023-12-29] MEDS: FAMOTIDINE 20 MG/50 ML BAG 200 MG IVPB (03:18)
[2023-12-29] MEDS: Pantoprazole 40 MG VIAL IVP (03:18)
--- NOTE | 2023-12-29 04:11 | DI.VRAD_ITS ---
PROCEDURE INFORMATION: Exam: CT Abdomen And Pelvis With Contrast Exam date and time: 12/29/2023 2:16 AM Age: 68 years old Clinical indication: Localized; Prior surgery; Surgery date: 6+ months; Surgery type: Bowel resection; Patient HX: Lower abdominal pain, bloody stool, vomiting TECHNIQUE: Imaging protocol: Computed tomography of the abdomen and pelvis with contrast. Radiation optimization: All CT scans at this facility use at least one of these dose optimization techniques: automated exposure control; mA and/or kV adjustment per patient size (includes targeted exams where dose is matched to clinical indication); or iterative reconstruction. Contrast material: OMNIPAQUE 350; Contrast volume: 100 ml; Contrast route: INTRAVENOUS (IV); COMPARISON: CT ABDOMEN PELVIS W 04/21/2023 2:38 PM FINDINGS: Heart: Cardiomegaly. Liver: Normal. No mass. Gallbladder and biliary ducts: Normal. No calcified stones. No ductal dilation. Pancreas: Indeterminate 1 cm hypoattenuating/cystic lesion of the lateral head of the pancreas. Similar subcentimeter round hypoattenuating/cystic lesion in the tail of the pancreas. Spleen: Normal. Adrenal glands: Normal. No mass. Kidneys and ureters: Normal. No hydronephrosis. Stomach and bowel: There is extravasation a fairly large amount intravascular contrast into the lumen of the hepatic flexure of the colon. The exact site of origin of the hemorrhage is not discernible as this is a single mixed arterial and venous phase study with respect to timing and the contrast is fairly spread throughout the periphery of the lumen of the hepatic flexure. There are multiple local colonic diverticula, any of which could be a potential site of hemorrhage. No evidence of colonic neoplasm. There is blood mildly to moderately distending the lumen of the hepatic flexure and transverse colon. Distal to the area of hemorrhage, there is mild inflammation and thickening of the wall of the distal transverse colon, compatible with mild colitis. No intestinal obstruction. Chronic postsurgical changes the sigmoid colon. No pneumatosis or portal/mesenteric venous gas. Appendix: Normal appendix. Intraperitoneal space: No pneumoperitoneum or abscess. Vasculature: See Stomach and bowel finding. Lymph nodes: Unremarkable. Urinary bladder: Unremarkable as visualized. Reproductive: Unremarkable as visualized. Bones/joints: Unremarkable. No acute fracture. Soft tissues: Unremarkable. IMPRESSION: 1. There is extravasation a fairly large amount intravascular contrast into the lumen of the hepatic flexure of the colon. The exact site of origin of the hemorrhage is not discernible as this is a single mixed arterial and venous phase study with respect to timing and the contrast is fairly spread throughout the periphery of the lumen of the hepatic flexure. There are multiple local colonic diverticula, any of which could be a potential site of hemorrhage. No evidence of colonic neoplasm. There is blood mildly to moderately distending the lumen of the hepatic flexure and transverse colon. 2. Distal to the area of hemorrhage, there is mild inflammation and thickening of the wall of the distal transverse colon, compatible with mild colitis. 3. Indeterminate 1 cm hypoattenuating/cystic lesion of the lateral head of the pancreas. Similar subcentimeter round hypoattenuating/cystic lesion in the tail of the pancreas. Dictated and Authenticated by: Ron Lazaro MD. Ordering:SANDRA Obrien MD
[2023-12-29 04:28] LABS: HCT 23.5 % (36.0-46.0); HGB 7.7 g/dL (11.2-15.7); MCH 29.4 pg (27.0-33.0); MCHC 32.8 % (32.0-36.0); MCV 90 fL (80-95); MPV 8.5 fL (8.0-11.0); Platelet Count 187 10^3/uL (130-400); RBC 2.62 10^6/uL (3.93-5.22); RDW 13.6 % (11.7-14.6); RDW-SD 44.9 fL; WBC 9.73 10^3/uL (4.4-10.8)
[2023-12-29] MEDS: HUMAN PROTHROM. CMPX. 2,000 UNIT in EMPTY EVACUATED CONTAINER 1 EACH 360 UNIT IV ×2 (04:49)
== END 2023-12-29 05:37 | disposition short-term general hospital (02) ==
PROVIDERS: Emergency Provider Student in an Organized Health Care Education/Training Program; PCP Physician Assistant
DX: K92.2 Gastrointestinal hemorrhage, unspecified (principal); R57.8 Other shock; I48.91 Unspecified atrial fibrillation; I10 Essential (primary) hypertension; K86.9 Disease of pancreas, unspecified; Z86.73 Personal history of transient ischemic attack (TIA), and cerebral infarction without residual deficits; Z79.01 Long term (current) use of anticoagulants
CPT/HCPCS: 36415; 80053; 83690; 85027; 86850; 86900; 86901; 86920; 96361; 96365; 96367; 96375; 99285; 74177; 81003; 81015; 83735; 84484; 85025; 86870; J0131; J2405; J2470; J3490; J7168; P9016

== ENCOUNTER 2024-02-17 08:59 | Outpatient (REF) | payer MEDICARE, SELFPAY ==
[2024-02-17 14:59] LABS: MCH 27.2 pg (27.0-33.0); MCHC 31.3 % (32.0-36.0); MCV 87 fL (80-95); MPV 9.1 fL (8.0-11.0); Platelet Count 279 10^3/uL (130-400); RBC 3.68 10^6/uL (3.93-5.22); RDW-SD 48.4 fL; WBC 6.01 10^3/uL (4.4-10.8)
[2024-02-17 15:08] LABS: Iron 38 ug/dL (50-170); Total Iron Binding Capacity 322 ug/dL (250-450); Transferrin Sat 12 % (15-50)
[2024-02-17 15:24] LABS: ALT 23 U/L (14-59); AST 20 U/L (15-37); Albumin 3.6 g/dL (3.4-5.0); Alkaline Phosphatase 99 U/L (46-116); Anion Gap 8.3 mmol/L (3-11); BUN 18 mg/dL (7-18); Bilirubin, Total 0.54 mg/dL (0.2-1.0); CO2 26.7 mmol/L (21.0-32.0); Calcium 9.2 mg/dL (8.5-10.1); Calculated LDL 41 mg/dL (<100); Chloride 106 mmol/L (98-107); Cholesterol 97 mg/dL (<200); Estimated GFR 60.98 (mL/min/1.73m2); Ferritin 16 ng/mL (8-252); Glucose 99 mg/dL (74-106); HDL Cholesterol 38 mg/dL (40-60); Potassium 3.9 mmol/L (3.5-5.1); Sodium 141 mmol/L (136-145); TSH 1.92 uIU/mL (0.36-3.74); Total Protein 7.9 g/dL (6.4-8.2); Triglyceride 90 mg/dL (<150)
[2024-02-17 15:56] LABS: Hemoglobin A1C 5.1 % (<5.7)
== END 2024-02-17 09:00 | disposition home or self-care (01) ==
LOC: NCHCN 08:59
PROVIDERS: PCP Physician Assistant; Visit Provider Physician Assistant
DX: E03.9 Hypothyroidism, unspecified (principal); D64.9 Anemia, unspecified; R73.03 Prediabetes
CPT/HCPCS: 80053; 80061; 85027; 82728; 83036; 83540; 83550; 84443

== ENCOUNTER → 2024-03-21 09:19 | Outpatient (BNVA) | payer MEDICARE, SELFPAY | PROVIDERS: PCP Physician Assistant; Visit Provider Registered Nurse | DX: I48.20 Chronic atrial fibrillation, unspecified (principal); I10 Essential (primary) hypertension | CPT/HCPCS: 99213 ==

== ENCOUNTER 2024-04-15 00:21 | Outpatient (CLI) | payer MEDICARE, SELFPAY ==
--- NOTE | 2024-04-15 | DI.MAMMO_ITS ---
Exam(s) MAMMO SCREENING EXAM: MAMMO SCREENING CLINICAL HISTORY: SCREENING MAMMO Z12.31. TECHNIQUE: Bilateral full field digital CC and MLO mammographic images were obtained with 3D tomosyn thesis and utilizing computer aided detection (CAD). COMPARISON: Prior mammograms were reviewed. FINDINGS: There has been no significant change in the appearance and distribution of the fibroglandular tissue. There are no new spiculated masses nor malignant appearing microcalcification groups. There is no significant architectural distortion nor skin thickening-retraction. IMPRESSION: No radiographic evidence of malignancy. BI-RADS Category 1 - Negative Breast Density - Category B - Scattered areas of fibroglandular density Breast density Category C or D implies that the patient has dense breast tissue. Dense breast tissue can make it harder to find cancer on a mammogram. Dense breast tissue is also associated with an incr eased risk of breast cancer. This information about the result of the mammogram report was provided to the patient to raise their awareness. Use this report when you speak with the patient about their risks for breast cancer, which includes their family history. At that time, you may recommend additional screening tests (Ultrasoun d or MRI) as these tests may add significant information. A negative radiographic report should not delay biopsy if a dominant or clinically suspicious mass is present. Up to ten percent of cancers are not identified on mammography. A negative report may reinforce clinical impression. Adenosis and dense breasts may obscure an underlying neoplasm. False positive reports average 6 to 10%. Patient will receive a letter notifying them of these results.
== END 2024-04-15 00:41 ==
LOC: DI 00:22
PROVIDERS: PCP Physician Assistant; Visit Provider Physician Assistant
DX: Z12.31 Encounter for screening mammogram for malignant neoplasm of breast (principal); R92.323 Mammographic fibroglandular density, bilateral breasts
CPT/HCPCS: 77063; 77067

== ENCOUNTER 2025-03-20 08:13 | Outpatient (CLI) | payer MEDICARE, SELFPAY ==
--- NOTE | 2025-03-20 08:00 | RT.EKG_ITS ---
APPROVED REPORT Exam: Resting ECG Reason for Exam: afib Patient Location: O HR:85 bpm ECG Measurements Heart Rate 85 AXIS WV [id number] P [id number] QRSd 86 QRS -14 QT 396 T -11 QTc 471 Conclusion Atrial fibrillation...V-rate 77- 91, irreg A-activity Low voltage, precordial leads...precordial leads <1.0mV Borderline T abnormalities, inferior leads...T flat/neg, II III aVF
== END 2025-03-20 08:14 | disposition home or self-care (01) ==
LOC: DI.CARD 08:14
PROVIDERS: PCP Physician Assistant; Visit Provider Registered Nurse
DX: I48.20 Chronic atrial fibrillation, unspecified (principal)
CPT/HCPCS: 93010

== ENCOUNTER → 2025-03-20 08:57 | Outpatient (BNVA) | payer MEDICARE, SELFPAY | PROVIDERS: PCP Physician Assistant; Visit Provider Registered Nurse | DX: I48.20 Chronic atrial fibrillation, unspecified (principal); I10 Essential (primary) hypertension; J45.909 Unspecified asthma, uncomplicated; Z79.899 Other long term (current) drug therapy; Z79.01 Long term (current) use of anticoagulants; Z79.811 Long term (current) use of aromatase inhibitors | CPT/HCPCS: 99214; 93005 ==

== ENCOUNTER 2025-03-22 00:53 | Outpatient (CLI) | payer MEDICARE, SELFPAY ==
[2025-03-22 08:36] LABS: HCT 37.8 % (36.0-46.0); HGB 12.3 g/dL (11.2-15.7); MCH 27.9 pg (27.0-33.0); MCHC 32.5 % (32.0-36.0); MCV 86 fL (80-95); MPV 8.3 fL (8.0-11.0); Platelet Count 226 10^3/uL (130-400); RBC 4.41 10^6/uL (3.93-5.22); RDW 13.8 % (11.7-14.6); RDW-SD 43.5 fL; WBC 5.79 10^3/uL (4.4-10.8)
[2025-03-22 08:53] LABS: Hemoglobin A1C 5.9 % (<5.7)
[2025-03-22 09:02] LABS: ALT 21 U/L (10-49); AST 25 U/L (<34); Albumin 4.1 g/dL (3.2-5.0); Alkaline Phosphatase 91 U/L (46-116); Anion Gap 8.4 mmol/L (3-11); BUN 18 mg/dL (9-23); Bilirubin, Total 0.8 mg/dL (0.2-1.2); CO2 27.6 mmol/L (20.0-31.0); Calcium 8.9 mg/dL (8.3-10.6); Chloride 104 mmol/L (98-107); Cholesterol 111 mg/dL (<200); Glucose 103 mg/dL (74-106); HDL Cholesterol 34 mg/dL (>40); Potassium 3.6 mmol/L (3.5-5.1); Sodium 140 mmol/L (136-145); TSH 2.34 uIU/mL (0.55-4.78); Total Protein 8.2 g/dL (5.7-8.2)
== END 2025-03-22 00:54 | disposition home or self-care (01) ==
LOC: LBO 00:53
PROVIDERS: PCP Physician Assistant; Visit Provider Physician Assistant
DX: R73.03 Prediabetes (principal); E78.5 Hyperlipidemia, unspecified; E03.9 Hypothyroidism, unspecified; I48.91 Unspecified atrial fibrillation
CPT/HCPCS: 36415; 80053; 80061; 85027; 83036; 84443